=== PATIENT | male | born 1955 ===

== ENCOUNTER → 2016-12-22 | Outpatient (CLI) | payer OTHER ==
[2016-12-22 14:50] LABS: BASO % 0.4 %; BASO ABS # 0.02 K/uL (0-0.2); COMPLETE YES; EOS % 1.6 %; HEMATOCRIT 42.1 % (42-52); LYMPH % 31.3 %; MEAN CELL VOLUME 87.7 fL (80-100); MEAN CORPUSCULAR HEMOGLOBIN 29.2 pg (25-34); MEAN CORPUSCULAR HGB CONC 33.3 g/dl (32-36); MEAN PLATELET VOLUME 10.4 fL (7.4-10.4); MONO % 15.8 %; NEUT % 50.9 %; PLATELET COUNT 246 K/uL (130-400); WHITE BLOOD COUNT 4.48 K/uL (4.8-10.8)
[2016-12-22 15:08] LABS: ALT/SGPT 23 U/L (12-78); AST/SGOT 12 U/L (15-37); BLOOD UREA NITROGEN 13 mg/dl (7-18); CALCIUM 8.5 mg/dl (8.5-10.1); CARBON DIOXIDE 27 mmol/L (21-32); CHLORIDE 110 mmol/L (98-107); CREATININE 0.93 mg/dl (0.60-1.40); GLUCOSE 89 mg/dl (70-99); SODIUM 142 mmol/L (136-145)
[2016-12-22 15:14] LABS: ALKALINE PHOSPHATASE 65 U/L (45-117); CHOLESTEROL 114 mg/dl (0-200); CHOLESTEROL/HDL RATIO 3.9; HDL CHOLESTEROL 29 mg/dl; LDL CHOLESTEROL CALCULATED 67 mg/dl; PROSTATE SPECIFIC ANTIGEN 0.596 ng/ml (0.000-4.000); TRIGLYCERIDES 88 mg/dl (0-150); VERY LOW DENSITY LIPOPROT CALC 18 mg/dl
== END | disposition home or self-care (01) ==
LOC: C.LABSPEC 14:11
PROVIDERS: ATTEND Family Medicine
DX: Z00.00 Encounter for general adult medical examination without abnormal findings (principal); R19.7 Diarrhea, unspecified; F41.1 Generalized anxiety disorder; I10 Essential (primary) hypertension; Z12.5 Encounter for screening for malignant neoplasm of prostate; K21.9 Gastro-esophageal reflux disease without esophagitis

== ENCOUNTER → 2017-12-21 | Outpatient (CLI) | payer OTHER ==
[2017-12-21 13:39] LABS: BASO % 0.2 %; BASO ABS # 0.01 K/uL (0-0.2); EOS % 1.7 %; HEMATOCRIT 43.2 % (42-52); HEMOGLOBIN 14.8 g/dL (14.0-18.0); IG# 0.02 K/uL (0.00-0.02); MEAN CELL VOLUME 88.9 fL (80-100); MEAN CORPUSCULAR HEMOGLOBIN 30.5 pg (25-34); MEAN CORPUSCULAR HGB CONC 34.3 g/dl (32-36); MEAN PLATELET VOLUME 10.5 fL (7.4-10.4); MONO % 7.8 %; MONO ABS # 0.46 K/uL (0.11-0.59); NEUT ABS # 3.29 K/uL (1.4-6.5); PLATELET COUNT 244 K/uL (130-400); RED CELL DISTRIBUTION WIDTH CV 14.7 % (11.5-14.5); RED CELL DISTRIBUTION WIDTH SD 47.8 fL (36.4-46.3); WHITE BLOOD COUNT 5.88 K/uL (4.8-10.8)
[2017-12-21 13:58] LABS: ALKALINE PHOSPHATASE 67 U/L (45-117); ALT/SGPT 27 U/L (12-78); AST/SGOT 18 U/L (15-37); BLOOD UREA NITROGEN 17 mg/dl (7-18); CALCIUM 8.7 mg/dl (8.5-10.1); CARBON DIOXIDE 26 mmol/L (21-32); CHOLESTEROL 142 mg/dl (0-200); CREATININE 0.84 mg/dl (0.60-1.40); GLUCOSE 100 mg/dl (70-99); LDL CHOLESTEROL CALCULATED 92 mg/dl; POTASSIUM 4.3 mmol/L (3.5-5.1); SODIUM 140 mmol/L (136-145); TOTAL PROTEIN 6.9 gm/dl (6.4-8.2)
== END | disposition home or self-care (01) ==
LOC: C.LABSPEC 13:15
PROVIDERS: ATTEND Family Medicine
DX: Z00.00 Encounter for general adult medical examination without abnormal findings (principal); I10 Essential (primary) hypertension; K21.9 Gastro-esophageal reflux disease without esophagitis; R35.0 Frequency of micturition

== ENCOUNTER 2021-05-19 21:58 | Inpatient (IN) ==
[2021-05-19] MEDS ORDERED: dexAMETHasone**PF** 10 MG/ML VIAL IV ONE (22:13)
--- NOTE | 2021-05-19 22:20 | Emergency Department Note ---
History of Present Illness General Chief complaint: Shortness of Breath/Dyspnea Stated complaint: sob, pneumonia, covid-, Time Seen by Provider: 05/19/21 22:10 Source: patient History of Present Illness Provider complaint: Short breath Onset (ago): day(s) Location: chest Pain Consistency: + constant Quality: + other (Short of breath) Relieved By: + none Associated symptoms: + cough, + malaise and + shortness of breath; no chest p ain, no fever/chills or no nausea/vomiting This is a 66-year-old male with history of hypertension presenting with shortness of breath for the past several days. He had flu symptoms starting 6 days ago including cough and malaise. He has some loss of taste. He denies any fever, chest pain, abdominal pain, vomiting, diarrhea or urinary symptoms. He states that he started getting short of breath several days ago. He feels like he cannot breathe. He is not on oxygen at home. He did have a COVID test yesterday which was positive. He is not vaccinated for COVID-19. He does not smoke. His shortness of breath is only slightly better with the oxygen currently. Home Medications Medication Instructions Recorded Confirmed Type azithromycin 250 mg tablet 250 mg PO UD 05/19/21 05/19/21 History losartan 50 mg tablet 50 mg PO DAILY 05/19/21 05/19/21 History prednisone 10 mg tablet 10 mg PO UD 05/19/21 05/19/21 History Allergies Allergy/AdvReac Type Severity Reaction Status Date / Time No Known Allergies Allergy Unverified 05/19/21 22:56 Past Med/Surg History Medical History Hypertension Social History Smoking Status: Never smoker Feels Safe at Home: Yes Review of Systems See HPI for pertinent positives & negatives. and A total of 10 systems reviewed and were otherwise negative Physical Exam Vital Signs Vital Signs - 24 hr 05/19/21 22:00 05/19/21 22:33 05/19/21 22:38 Temperature 37.7 C H Temperature Source Temporal Artery Scan Pulse Rate 80 79 Respiratory Rate 20 30 H Respiratory Effort / Characteristics Short of Breath SOB on Exertion Respiratory Depth Deep Blood Pressure 148/87 H 163/88 H Blood Pressure Mean 107 113 Blood Pressure Position Sitting Pulse Oximetry 87 L 94 Oxygen Delivery Method Room Air Nasal Cannula Nasal Cannula Oxygen Flow Rate 0 4 Sepsis Recent Fever Within 48 Hours No Sepsis New/Unexplained Change in Mental Status No Sepsis Action Taken by Nursing No Action Required Oxygen Flow Rate - Titration 4 Pulse Oximetry Post Tiitration 95 05/19/21 23:00 05/19/21 23:30 05/19/21 23:34 Temperature Temperature Source Pulse Rate 76 81 Respiratory Rate 30 H 28 H Respiratory Effort / Characteristics Respiratory Depth Blood Pressure 144/84 H 143/82 H Blood Pressure Mean 104 102 Blood Pressure Position Pulse Oximetry 95 95 95 Oxygen Delivery Method Nasal Cannula Nasal Cannula Nasal Cannula Oxygen Flow Rate 4 4 4 Sepsis Recent Fever Within 48 Hours Sepsis New/Unexplained Change in Mental Status Sepsis Action Taken by Nursing Oxygen Flow Rate - Titration Pulse Oximetry Post Tiitration Constitutional: Vital signs reviewed. Hypoxemic. Eyes: Pupils are equal round reactive to light. Conjunctiva are noninjected. ENT: Pharynx is clear without erythema or exudate. Mucous membranes are moist. Neck supple without meningeal signs. Respiratory: Clear to auscultation bilaterally. Breath sounds are equal bilaterally. Cardiovascular: Regular rate and rhythm. No rubs or gallops. GI: Soft, nondistended and nontender. Bowel sounds are present. Musculoskeletal: No peripheral edema. No lower extremity tenderness. Integumentary: No cyanosis. or jaundice. Neurological: The patient is awake and alert. No focal deficits. Psychiatric: Normal affect. Course Administered Medications Discontinued Medications Dexamethasone Sodium Phosphate (DexamethasonePf 10 Mg/Ml Vial) 6 mg IV NOW ONE Stop: 05/19/21 22:14 Last Admin: 05/19/21 22:32 Dose: 6 mg Documented by: [id number] Medical Decision Making Differential Diagnosis COVID-19, multifocal pneumonia, hypoxemia, respiratory failure, anemia Medical Records Attestation: I reviewed the patient's medical records. I did perform a limited focused review of portions of the patient's old chart on the electronic medical record. The patient has had no recent pertinent visits to this hospital. Home Medications Current Medication List: was personally reviewed by me Laboratory Data Attestation: I reviewed the patient's lab results. Result diagrams: 05/19/21 22:30 05/19/21 22:30 Lab Results 01/11/0205/19/21 05/19/21 Range/Units 22:30 22:30 23:50 WBC 5.04 (4.8-10.8) K/uL RBC 4.96 (4.7-6.1) M/uL Hgb 15.0 (14.0-18.0) g/dL Hct 44.0 (42-52) % MCV 88.7 (80-100) fL MCH 30.2 (25-34) pg MCHC 34.1 (32-36) g/dL RDW Std Deviation 46.5 H (36.4-46.3) fL RDW Coeff of Danielle 14.2 (11.5-14.5) % Plt Count 248 (130-400) K/uL MPV 9.9 (7.4-10.4) fL Immature Gran % (Auto) 0.2 % Neut % (Auto) 79.0 % Lymph % (Auto) 12.5 % [place] % (Auto) 8.3 % Eos % (Auto) 0.0 % Baso % (Auto) 0.0 % Neut # (Auto) 3.98 (1.4-6.5) K/uL Lymph # (Auto) 0.63 L (1.2-3.4) K/uL [place] # (Auto) 0.42 (0.11-0.59) K/uL Eos # (Auto) 0.00 (0-0.5) K/uL Baso # (Auto) 0.00 (0-0.2) K/uL Immature Gran # (Auto) 0.01 (0.00-0.02) K/uL Sodium 134 L (136-145) mmol/L Potassium (3.5-5.1) mmol/L Chloride 101 (98-107) mmol/L Carbon Dioxide 26 (21-32) mmol/L Anion Gap 7.0 (3-11) BUN 17 (7-18) mg/dl Creatinine 0.88 (0.6-1.4) mg/dl Est Cr Clr Drug Dosing 92.2 ml/min Est GFR ( Amer) 103.7 ml/min Est GFR (Non-Af Amer) 89.5 ml/min BUN/Creatinine Ratio 19.6 (10-20) Glucose 110 H (70-99) mg/dl Calcium 9.2 (8.5-10.1) mg/dl Total Bilirubin 0.5 (0.2-1) mg/dl AST (15-37) U/L ALT 61 (12-78) Alkaline Phosphatase 65 (45-117) U/L Troponin I < 0.015 (0-0.045) ng/ml Total Protein 7.8 (6.4-8.2) gm/dl Albumin 3.2 L (3.4-5.0) gm/dl Globulin 4.6 H (2.5-4.0) gm/dl Albumin/Globulin Ratio 0.7 L (0.9-2) Urine Color Yellow Urine Appearance Clear (Clear) Urine pH 5.0 (4.5-7.5) Ur Specific [place] 1.023 (1.000-1.030) Urine Protein 1+ H (Negative) Urine Glucose (UA) Negative (Negative) Urine Ketones 1+ H (Negative) Urine Blood Negative (Negative) Urine Nitrite Negative (Negative) Urine Bilirubin Negative (Negative) Urine Urobilinogen Negative (Negative) Ur Leukocyte Esterase Negative (Negative) Urine WBC (Auto) 1-5 (0-5) /hpf Urine RBC (Auto) 0-4 (0-4) /hpf U Hyaline Cast (Auto) 5-10 H (0-5) /lpf U Epithel Cells (Auto) 10-20 H (0-5) /lpf Urine Bacteria (Auto) Negative (Negative) Imaging Data Attestation: I personally reviewed and interpreted this imaging study as follows: My Impression: Chest x-ray per my interpretation shows bilateral infiltrates consistent with a viral pneumonia. ECG Data Attestation: I personally reviewed and interpreted this ECG as follows: Indication: + SOB/dyspnea Rate (beats per minute): 78 Rhythm: + normal sinus ECG [place]: + Normal ECG ST segments: + T-wave inversions ECG Findings: no PVCs Comparison ECG Date: no prior available MDM Narrative I did evaluate the patient as noted above. Patient is presenting with a positive COVID test and COVID symptoms. He is short of breath and hypoxemic here. He was placed on supplemental oxygen. His O2 saturation was 96% on 4 L. He was placed in respiratory isolation. IV access was established. I did treat him with Decadron [address] I did [address] an order for continuous cardiac monitoring. The monitor showed normal sinus rhythm at a rate of 80 bpm. I did order and personally review the patient's 12-lead EKG as described above. He has T wave inversions in the anterior lateral leads. No old EKGs available for comparison. He denies having any chest discomfort or pain but he does have shortness of breath. I did order and personally reviewed the images of the patient's chest x-ray as described above. He has a multifocal pneumonia. I did order and review the patient's blood work as noted in the electronic medical record. CBC is unremarkable without leukocytosis or anemia. He does have a mild decrease in lymphocytes with his differential likely from COVID. Sodium is slightly low at 134 but otherwise electrolytes and LFTs are unremarkable. Troponin is negative. I did discuss the case with the hospitalist and egg caser. Impression & Plan Hypoxemia, Pneumonia due to 2019 novel coronavirus, Hyponatremia Discharge Plan Visit Data Chief Complaint: Shortness of Breath/Dyspnea Stated Complaint: sob, pneumonia, covid-, ED Provider: Gage Loya Discharge Problem: Hypoxemia, Pneumonia due to 2019 novel coronavirus, Hyponatremia Patient Disposition: Being Evaluated by Hospitalist Forms Stand Alone Forms: My [facility] Prescriptions Prescriptions: No Action losartan 50 mg tablet 50 mg PO DAILY RF: 0 prednisone 10 mg tablet 10 mg PO UD RF: 0 azithromycin 250 mg tablet 250 mg PO UD RF: 0 Referrals Referrals: Alex Mendoza DO [Primary Care Provider] -
[2021-05-19 22:41] LABS: Immature Granulocytes # (auto) 0.01 K/uL (0.00-0.02); Immature Granulocytes % (auto) 0.2 %; Lymphocytes # (auto) 0.63 K/uL (1.2-3.4); Lymphocytes % (auto) 12.5 %; Mean Corpuscular Hemoglobin 30.2 pg (25-34); Mean Corpuscular Hgb Conc 34.1 g/dL (32-36); Mean Corpuscular Volume 88.7 fL (80-100); Mean Platelet Volume 9.9 fL (7.4-10.4); Monocytes # (auto) 0.42 K/uL (0.11-0.59); Monocytes % (auto) 8.3 %; Neutrophils # (auto) 3.98 K/uL (1.4-6.5); Platelet Count 248 K/uL (130-400); RDW Coefficient of Variation 14.2 % (11.5-14.5); RDW Standard Deviation 46.5 fL (36.4-46.3); Red Blood Count 4.96 M/uL (4.7-6.1); White Blood Count 5.04 K/uL (4.8-10.8)
[2021-05-19 23:08] LABS: Alanine Aminotransferase 61 (12-78); Albumin Level 3.2 gm/dl (3.4-5.0); BUN Creatinine Ratio 19.6 (10-20); Blood Urea Nitrogen 17 mg/dl (7-18); Calcium 9.2 mg/dl (8.5-10.1); Carbon Dioxide 26 mmol/L (21-32); Chloride 101 mmol/L (98-107); Creatinine Clr Calc Pharmacy 92.2 ml/min; Est GFR (African American) 103.7 ml/min; Est GFR (Non-African American) 89.5 ml/min; Glucose 110 mg/dl (70-99); Sodium 134 mmol/L (136-145)
[2021-05-19 23:17] LABS: Albumin Globulin Ratio 0.7 (0.9-2); Alkaline Phosphatase 65 U/L (45-117); Bilirubin,Total 0.5 mg/dl (0.2-1); Globulin 4.6 gm/dl (2.5-4.0); Total Protein 7.8 gm/dl (6.4-8.2); Troponin I < 0.015 ng/ml (0-0.045)
[2021-05-20 00:12] LABS: Appearance Urine Clear (Clear); Bacteria Urine Automated Negative (Negative); Bilirubin Urine Negative (Negative); Blood Urine Negative (Negative); Color Urine Yellow; Glucose Urine UA Negative (Negative); Ketones Urine 1+ (Negative); Leukocyte Esterase Urine Negative (Negative); Nitrite Urine Negative (Negative); Protein Urine 1+ (Negative); RBC Urine Automated 0-4 /hpf (0-4); Specific Gravity Urine 1.023 (1.000-1.030); Urobilinogen Urine Negative (Negative)
[2021-05-20] MEDS ORDERED: REMDESIVIR 200 MG in SODIUM CHLORIDE 0.9% 210 ML IV STA (01:16)
[2021-05-20] MEDS ORDERED: ONDANSETRON INJ 2 MG/ML 2 ML VIAL IV PRN (02:28)
[2021-05-20] MEDS ORDERED: SODIUM CHLORIDE 0.9% 1000ML 1,000 ML IV SCH (02:28)
[2021-05-20] MEDS ORDERED: NITROGLYCERIN SL 0.4 MG/TAB TAB SL PRN (02:28)
[2021-05-20] MEDS ORDERED: ALBUTEROL HFA 8 GM INHALER INH PRN (02:28)
--- NOTE | 2021-05-20 02:53 | History and Physical Report ---
DATE OF ADMISSION: 05/20/2021. CHIEF COMPLAINT: Shortness of breath. HISTORY OF PRESENT ILLNESS: A 66-year-old male with past medical history significant for hypertension, started developing cough since last Sunday and since sunday , he was feeling short of breath, has body aches, poor appetite, not eating much, not feeling well, so he came to the ER and was saturating only 87% on room air and COVID came back positive. He is not vaccinated. With oxygenation, he is doing okay. Denies any headache, no earache. Has some runny nose. His throat is sore. No nausea, no vomiting. Has some diarrhea. No abdominal pain. Normal bladder movements. No swelling in the legs. Currently, resting comfortably and hemodynamically stable. Somewhat hard of hearing. ALLERGIES: No known drug allergies. PAST MEDICAL HISTORY: As mentioned above. PAST SURGICAL HISTORY: EGD, abdominal hernia repair. MEDICATIONS: The patient is on losartan 50 mg p.o. daily. FAMILY HISTORY: No family history on file. SOCIAL HISTORY: , no smoking. Alcohol occasional. No drug use. REVIEW OF SYSTEMS: As per HPI. Rest of the review of systems is negative. PHYSICAL EXAMINATION: GENERAL: The patient is of moderate build, not in acute distress. VITAL SIGNS: Temperature 37.7, pulse 81, respiratory rate 28, blood pressure 143/82, oxygen 95% on 4 liters. HEENT: Pupils equal, round and reactive to light. Oral mucosa moist. NECK: No JVD or neck masses. CARDIOVASCULAR: S1 and S2 heard. Regular rate and rhythm. No murmur, no gallop. RESPIRATORY SYSTEM: Normal AP diameter. No accessory muscle use. No wheezing, no crackles. ABDOMEN: Soft, bowel sounds present, nontender, no distention. CENTRAL NERVOUS SYSTEM: Cranial nerves II-XII grossly intact, nonfocal. EXTREMITIES: No edema, no erythema. LABORATORY DATA: WBC 5.04, hemoglobin 15, hematocrit 44, platelets 248. Sodium 134, potassium 4.1, chloride 101, bicarbonate 26, BUN 17, creatinine 0.8, serum glucose 110, calcium 9.2, total bilirubin 0.5, ALT 61, alkaline phosphatase 65, troponin I less than 0.015. Urinalysis, +1 ketones. IMAGING DATA: Chest x-ray, multifocal pneumonia. EKG: Normal sinus rhythm at a rate of 78, nonspecific ST abnormalities. ASSESSMENT AND PLAN: This is a 66-year-old male who presents with COVID pneumonia. 1. COVID pneumonia, hypoxia: Requiring oxygen. Not vaccinated. Started on remdesivir and IV Decadron. Follow the remdesivir labs. Placed on inhalers. Ordered 1 liter of fluids and closely monitor in the med tele. 2. History of hypertension: Continue losartan. 3. Deep venous thrombosis prophylaxis: Lovenox. DISPOSITION: Closely monitor in the med tele. PT/OT prior to discharge. Social service to help with discharge planning. Job ID: [id number] [facility]
[2021-05-20] MEDS ORDERED: SODIUM CHLORIDE 0.9% 10ML FLUSH IV SCH (04:00)
--- NOTE | 2021-05-20 07:28 | XRay Report ---
SINGLE VIEW CHEST CLINICAL HISTORY: Dyspnea. Covid. FINDINGS: An AP, portable, upright chest radiograph is obtained. No prior studies are available for c omparison at the time of dictation. The cardiomediastinal silhouette is unremarkable. Multifocal air space consolidation is present bilaterally, greatest at the lung bases. No large pleural effusion or pneumothorax is seen. The bony thorax is grossly intact. IMPRESSION: Multifocal airspace consolidation is consistent with the reported history of a viral pneu monia. Radiographic follow-up to resolution is recommended. ACT 112: Negative or not required by law. Electronically signed by: Reece Knight M.D. 05/20/2021 7:26 AM
[2021-05-20 07:47] LABS: Hematocrit (blood only) 41.4 % (42-52); Mean Corpuscular Hgb Conc 33.8 g/dL (32-36); Mean Corpuscular Volume 88.7 fL (80-100); Neutrophils % (auto) 78.2 %; Platelet Count 258 K/uL (130-400); RDW Coefficient of Variation 14.4 % (11.5-14.5); Red Blood Count 4.67 M/uL (4.7-6.1); White Blood Count 3.95 K/uL (4.8-10.8)
[2021-05-20 07:48] LABS: Immature Granulocytes # (auto) 0.01 K/uL (0.00-0.02); Immature Granulocytes % (auto) 0.3 %; Lymphocytes # (auto) 0.51 K/uL (1.2-3.4); Lymphocytes % (auto) 12.9 %; Monocytes # (auto) 0.34 K/uL (0.11-0.59); Monocytes % (auto) 8.6 %; Neutrophils # (auto) 3.09 K/uL (1.4-6.5)
[2021-05-20] MEDS: ENOXAPARIN INJ 40 MG/0.4 ML SYR SQ SCH (08:00)
[2021-05-20] MEDS: FLUTICASONE FUROATE 100MCG 14 PUFFS/INHALER INH SCH (08:01)
[2021-05-20] MEDS: LOSARTAN POTASSIUM 50 MG TAB PO SCH (08:01)
[2021-05-20] MEDS: dexAMETHasone 6 MG in SYRINGE 0 ML IV SCH (08:01)
[2021-05-20 08:18] LABS: Alanine Aminotransferase 50 (12-78); Albumin Level 2.6 gm/dl (3.4-5.0); Aspartate Aminotransferase 22 U/L (15-37); BUN Creatinine Ratio 19.3 (10-20); Bilirubin Direct < 0.1 mg/dl (0-0.2); Blood Urea Nitrogen 17 mg/dl (7-18); C Reactive Protein 8.64 mg/dl (0-0.29); Calcium 8.3 mg/dl (8.5-10.1); Carbon Dioxide 25 mmol/L (21-32); Chloride 106 mmol/L (98-107); Creatinine Clr Calc Pharmacy 91.3 ml/min; Est GFR (African American) 103.7 ml/min; Est GFR (Non-African American) 89.5 ml/min; Glucose 142 mg/dl (70-99); Magnesium 2.1 mg/dl (1.8-2.4); Potassium 4.1 mmol/L (3.5-5.1); Sodium 139 mmol/L (136-145)
[2021-05-20 08:21] LABS: Alkaline Phosphatase 62 U/L (45-117)
[2021-05-20 09:28] LABS: Bilirubin,Total 0.4 mg/dl (0.2-1)
--- NOTE | 2021-05-20 16:13 | Electrocardiogram Report ---
Test Reason : Blood Pressure : / mmHG Vent. Rate : 078 BPM Atrial Rate : 078 BPM P-R Int : 142 ms QRS Dur : 084 ms QT Int : 376 ms P-R-T Axes : 033 004 126 degrees QTc Int : 428 ms Normal sinus rhythm Possible Left atrial enlargement Abnormal ECG No previous ECGs available Confirmed by Danny Banuelos ([id number]) on 05/20/2021 4:13:53 PM Referred By: REFERRED SELF Confirmed By:Danny Banuelos
--- NOTE | 2021-05-20 16:57 | Hospitalist Progress Note ---
Date of Service May 20, 2021 Assessment & Plan (1) Acute respiratory failure due to COVID-19: Plan: Cont steroids and remdesivir therapy. No conversational dyspnea or tachypea. Doing well on min oxygen supplementation. Afebrile. Cont current therapy and wean oxygen as tolerated. Trend CRP, BNP. Consider lasix to keep overall net negative. If CRP >7.5 and on hi flow oxygen, may consider baricitinib therapy with steroids, however, currently does not meet criteria. (2) Pneumonia due to 2019 novel coronavirus: Plan: polan as above. (3) Hypertension: Plan: At goal, cont current therapy (4) DVT prophylaxis: Plan: Lovenox Full Dispo-cont [facility]U [facility] Hospitalist Admission and Anticipated Discharge Date Admission Date: May 20, 2021 Subjective 66-year-old man with symptoms for the last few days admitted for COVID- pneumonia. Feeling well overall and improved Afebrile tolerating PO cough and SOB improved requiring oxygen no GI issues Review of Systems Review of Systems: All systems were reviewed and negative except as indicated above. Physical Exam Physical Exam: CONSTITUTIONAL: WNWD, vitals as above, generally well- appearing EYES: normal conjunctivae, no scleral icterus ENT: external ear and nose normal, MMM NECK: trachea midline, RESPIRATORY: clear to auscultation bilaterally, no crackles, rales or wheezes, normal respiratory effort CARDIOVASCULAR: regular rate and rhythm, S1 and 2 heard without murmurs, gallops or rubs, no JVD, no peripheral edema CHEST: inspection of chest was normal GASTROINTESTINAL: soft, nontender, ND, no guarding MUSCULOSKELETAL: strength 5/5 throughout, head is normocephalic and atraumatic, SKIN: warm and dry, NEUROLOGIC: CN 2-12 grossly intact, no sensory deficit, normal cognition, normal speech, no tremor PSYCHIATRIC: alert cooperative and oriented to person, place and time. Euthymic mood, makes good eye contact, language grossly intact, recent and remote memory grossly intact. Results & Data Results & Data ([facility]) Vital Signs (Past 12 Hours) Vital Signs Temp Pulse Pulse Resp BP BP Pulse Ox 05/20/21 15:21 73 05/20/21 15:11 36.6 C 64 19 142/81 H 92 05/20/21 11:10 36.7 C 64 20 142/81 H 91 05/20/21 07:12 36.6 C 64 20 154/89 H 90 Laboratory Results Short CBC 05/19/21 05/20/21 Range/Units 22:30 07:25 WBC 5.04 3.95 L (4.8-10.8) K/uL Hgb 15.0 14.0 (14.0-18.0) g/dL Hct 44.0 41.4 L (42-52) % Plt Count 248 258 (130-400) K/uL BMP 05/19/21 05/20/21 22:30 07:25 Sodium 134 L 139 Potassium 4.1 Chloride 101 106 Carbon Dioxide 26 25 BUN 17 17 Creatinine 0.88 0.88 Glucose 110 H 142 H Calcium 9.2 8.3 L Cardiac Enzymes 05/19/21 Range/Units 22:30 Troponin I < 0.015 (0-0.045) ng/ml Liver Function 05/19/21 05/20/21 Range/Units 22:30 07:25 Total Bilirubin 0.5 0.4 (0.2-1) mg/dl Direct Bilirubin < 0.1 (0-0.2) mg/dl AST 22 (15-37) U/L ALT 61 50 (12-78) Alkaline Phosphatase 65 62 (45-117) U/L Albumin 3.2 L 2.6 L (3.4-5.0) gm/dl Urine 05/19/21 Range/Units 23:50 Urine Color Yellow Urine Appearance Clear (Clear) Urine pH 5.0 (4.5-7.5) Ur Specific [place] 1.023 (1.000-1.030) Urine Protein 1+ H (Negative) Urine Glucose (UA) Negative (Negative) Diagnostic Findings Chest X-Ray 05/19/21 22:13 SINGLE VIEW CHEST CLINICAL HISTORY: Dyspnea. Covid. FINDINGS: An AP, portable, upright chest radiograph is obtained. No prior studies are available for comparison at the time of dictation. The cardiomediastinal silhouette is unremarkable. Multifocal airspace consolidation is present bilaterally, greatest at the lung bases. No large pleural effusion or pneumothorax is seen. The bony thorax is grossly intact. IMPRESSION: Multifocal airspace consolidation is consistent with the reported history of a viral pneumonia. Radiographic follow-up to resolution is recommended. ACT 112: Negative or not required by law. Electronically signed by: Reece Knight M.D. 05/20/2021 7:26 AM Medications Administered Current Inpatient Medications Acetaminophen (Acetaminophen 325 Mg Tab) 650 mg PO Q4H PRN PRN Reason: Pain or Fever Stop: 06/19/21 02:27 Albuterol (Albuterol Hfa 8 Gm Inhaler) 2 puffs INH Q4H PRN PRN Reason: Shortness Of Breath Or Wheezin Stop: 06/19/21 02:27 Enoxaparin Sodium (Enoxaparin Inj 40 Mg/0.4 Ml Syr) 40 mg SQ Q24H PRINCE Stop: 06/19/21 08:59 Last Admin: 05/20/21 08:00 Dose: 40 mg Documented by: Fluticasone Furoate (Fluticasone Furoate 100mcg 14 Puffs/Inhaler) 1 puffs INH DAILY PRINCE Stop: 06/19/21 08:59 Last Admin: 05/20/21 08:01 Dose: 1 puffs Documented by: Remdesivir 100 mg/ Sodium (Chloride) 250 mls @ 250 mls/hr IV Q[facility]H [facility]; Protocol Stop: 05/23/21 20:59 Dexamethasone 6 mg/ Syringe 1.5 mls @ 1 mls/min IV DAILY [facility] Stop: 05/30/21 08:59 Last Admin: 05/20/21 08:01 Dose: 1 mls/min Documented by: Losartan Potassium (Losartan Potassium 50 Mg Tab) 50 mg PO DAILY PRINCE Stop: 06/19/21 08:59 Last Admin: 05/20/21 08:01 Dose: 50 mg Documented by: Nitroglycerin (Nitroglycerin Sl 0.4 Mg/Tab Tab) 0.4 mg SL UD PRN PRN Reason: Chest Pain Stop: 06/19/21 02:27 Ondansetron HCl (Ondansetron Inj 2 Mg/Ml 2 Ml Vial) 4 mg IV Q6H PRN PRN Reason: Nausea Stop: 06/19/21 02:27 Sodium Chloride (Sodium Chloride 0.9% 10ml Flush) 30 ml IV Q24H PRINCE Stop: 05/23/21 21:01
[2021-05-20] MEDS: REMDESIVIR 100 MG in SODIUM CHLORIDE 0.9% 230 ML IV SCH (21:06)
[2021-05-20] MEDS: SODIUM CHLORIDE 0.9% 10ML FLUSH IV SCH (21:07)
[2021-05-20] MEDS: ACETAMINOPHEN 325 MG TAB PO PRN (22:36)
[2021-05-21 06:34] LABS: BUN Creatinine Ratio 29.4 (10-20); Creatinine Clr Calc Pharmacy 89.2 ml/min; Est GFR (African American) 102.8 ml/min; Est GFR (Non-African American) 88.7 ml/min; Magnesium 2.2 mg/dl (1.8-2.4); Potassium 4.1 mmol/L (3.5-5.1)
[2021-05-21 06:35] LABS: Phosphorus 3.6 mg/dl (2.5-4.9)
[2021-05-21] MEDS: dexAMETHasone 6 MG in SYRINGE 0 ML IV SCH (08:05)
[2021-05-21] MEDS: ENOXAPARIN INJ 40 MG/0.4 ML SYR SQ SCH (08:06)
[2021-05-21] MEDS: LOSARTAN POTASSIUM 50 MG TAB PO SCH (08:06)
[2021-05-21] MEDS: guaiFENesin 600 MG TABCR PO SCH ×2 (08:06→20:09)
[2021-05-21] MEDS: FLUTICASONE FUROATE 100MCG 14 PUFFS/INHALER INH SCH (08:06)
--- NOTE | 2021-05-21 08:48 | Hospitalist Progress Note ---
Date of Service May 21, 2021 Assessment & Plan (1) Acute respiratory failure due to COVID-19: Plan: Yesterday evening, patient was on 3.5 liters of O2, currently on 12 L after walk to the bathroom Appears tired Cont steroids and remdesivir therapy. No conversational dyspnea or tachypnea. Afebrile. Cont current therapy and wean oxygen as tolerated. Trend CRP, BNP. Consider lasix to keep overall net negative. If CRP >7.5 and on hi flow oxygen, may consider baricitinib therapy with steroids, however, currently does not meet criteria. CRP down to 5.8 (2) Pneumonia due to 2019 novel coronavirus: Plan: plan as above (3) Hypertension: Plan: At goal, cont current therapy (4) DVT prophylaxis: Plan: Lovenox Full Dispo-cont PCU monitoring Admission and Anticipated Discharge Date Admission Date: May 20, 2021 Subjective Patient seen in follow-up of COVID 19 pneumonia, hypoxia, patient unvaccinated Yesterday he was on a 3-1/2 L in the evening, however this morning, when walked to the bathroom, patient became quite short of breath, and currently on 12 L He is laying in bed, appears exhausted Denies any chest pain, fevers chills Says he has poor appetite Denies abdominal pain nausea vomiting Says he has some dry cough Review of Systems Review of Systems: All systems reviewed & are unremarkable except as noted in Subjective Physical Exam Physical Exam: CONSTITUTIONAL: WNWD, M in NAD on 12L, appears tired EYES: normal conjunctivae, no scleral icterus ENT: external ear and nose normal, MMM NECK:supple RESPIRATORY: clear to auscultation bilaterally, no crackles, rales or wheezes, normal respiratory effort CARDIOVASCULAR: regular rate and rhythm, S1 and 2 heard without murmurs, gallops or rubs, no JVD, no peripheral edema CHEST: inspection of chest was normal GASTROINTESTINAL: soft, nontender, ND, no guarding MUSCULOSKELETAL: strength 5/5 throughout, head is normocephalic and atraumatic, SKIN: warm and dry NEUROLOGIC:Awake and alert, answers questions appropriately, speech fluent, no facial symmetry, moves extremities PSYCHIATRIC: alert cooperative and oriented to person, place and time. Euthymic mood Results & Data Results & Data ([facility]) Vital Signs (Past 12 Hours) Vital Signs Temp Pulse Pulse Resp BP Pulse Ox 05/21/21 07:54 36.4 C L 73 20 132/76 96 05/21/21 02:53 36.9 C 79 20 130/77 90 05/20/21 22:29 36.7 C 66 20 148/95 H 90 05/20/21 22:18 65 Laboratory Results 05/21/21 05/20/21 Range/Units 05:15 07:25 Sodium 140 (136-145) mmol/L Potassium 4.1 (3.5-5.1) mmol/L Chloride 109 H (98-107) mmol/L Carbon Dioxide 24 (21-32) mmol/L Anion Gap 7.0 (3-11) BUN 26 H D (7-18) mg/dl Creatinine 0.90 (0.6-1.4) mg/dl Est Cr Clr Drug Dosing 89.2 ml/min Est GFR ( Amer) 102.8 ml/min Est GFR (Non-Af Amer) 88.7 ml/min BUN/Creatinine Ratio 29.4 H (10-20) Glucose 114 H (70-99) mg/dl Calcium 9.0 (8.5-10.1) mg/dl Phosphorus 3.6 (2.5-4.9) mg/dl Magnesium 2.2 (1.8-2.4) mg/dl Total Bilirubin 0.4 (0.2-1) mg/dl AST 24 (15-37) U/L ALT 44 (12-78) Medications Administered Current Inpatient Medications Acetaminophen (Acetaminophen 325 Mg Tab) 650 mg PO Q4H PRN PRN Reason: Pain or Fever Stop: 06/19/21 02:27 Last Admin: 05/20/21 22:36 Dose: 650 mg Documented by: Albuterol (Albuterol Hfa 8 Gm Inhaler) 2 puffs INH Q4H PRN PRN Reason: Shortness Of Breath Or Wheezin Stop: 06/19/21 02:27 Last Admin: 05/21/21 05:17 Dose: 2 puffs Documented by: Enoxaparin Sodium (Enoxaparin Inj 40 Mg/0.4 Ml Syr) 40 mg SQ Q24H PRINCE Stop: 06/19/21 08:59 Last Admin: 05/21/21 08:06 Dose: 40 mg Documented by: Fluticasone Furoate (Fluticasone Furoate 100mcg 14 Puffs/Inhaler) 1 puffs INH DAILY [facility] Stop: 06/19/21 08:59 Last Admin: 05/21/21 08:06 Dose: 1 puffs Documented by: Guaifenesin (Guaifenesin 600 Mg Tabcr) 600 mg PO Q12 [facility] Stop: 06/20/21 08:59 Last Admin: 05/21/21 08:06 Dose: 600 mg Documented by: Remdesivir 100 mg/ Sodium (Chloride) 250 mls @ 250 mls/hr IV Q24H [facility]; Protocol Stop: 05/23/21 20:59 Last Infusion: 05/20/21 23:06 Dose: Infused Documented by: Dexamethasone 6 mg/ Syringe 1.5 mls @ 1 mls/min IV DAILY [facility] Stop: 05/30/21 08:59 Last Admin: 05/21/21 08:05 Dose: 1 mls/min Documented by: Losartan Potassium (Losartan Potassium 50 Mg Tab) 50 mg PO DAILY [facility] Stop: 06/19/21 08:59 Last Admin: 05/21/21 08:06 Dose: 50 mg Documented by: Nitroglycerin (Nitroglycerin Sl 0.4 Mg/Tab Tab) 0.4 mg SL UD PRN PRN Reason: Chest Pain Stop: 06/19/21 02:27 Ondansetron HCl (Ondansetron Inj 2 Mg/Ml 2 Ml Vial) 4 mg IV Q6H PRN PRN Reason: Nausea Stop: 06/19/21 02:27 Sodium Chloride (Sodium Chloride 0.9% 10ml Flush) 30 ml IV Q24H [facility] Stop: 05/23/21 21:01 Last Admin: 05/20/21 21:07 Dose: 30 ml Documented by:
[2021-05-21] MEDS ORDERED: FUROSEMIDE INJ 20 MG/2 ML VIAL IV ONE (16:13)
[2021-05-21] MEDS: ADVANCED PROBIOTIC 1250 MG CAPSULE PO SCH (17:03)
--- NOTE | 2021-05-21 17:27 | XRay Report ---
XR chest 1V portable CLINICAL HISTORY: follow up hypoxia Covid pneumonia. TECHNIQUE: Single frontal radiograph of the chest was obtained. Comparison: Comparison is made to chest one view 05/19/2021 FINDINGS: No lines and tubes are seen. The cardiomediastinal silhouette is normal. Multifocal airspace opacitie s are seen. No evidence of pleural effusion or pneumothorax. IMPRESSION: Multifocal airspace opacities compatible with history of viral pneumonia. Overall these findings are more pronounced than the prior exam. ACT 112: Negative or not required by law. Electronically signed by: Anup Garcia M.D. 05/21/2021 5:25 PM
[2021-05-21] MEDS: REMDESIVIR 100 MG in SODIUM CHLORIDE 0.9% 230 ML IV SCH (20:10)
[2021-05-21] MEDS: ACETAMINOPHEN 325 MG TAB PO PRN (21:36)
[2021-05-21] MEDS: SODIUM CHLORIDE 0.9% 10ML FLUSH IV SCH (21:42)
--- NOTE | 2021-05-22 07:26 | Hospitalist Progress Note ---
Date of Service May 22, 2021 Assessment & Plan (1) Acute respiratory failure due to COVID-19: Plan: Yesterday evening, patient was on 3.5 liters of O2, currently on 12 L after walk to the bathroom Appears tired Cont steroids and remdesivir therapy. No conversational dyspnea or tachypnea. Afebrile. Cont current therapy and wean oxygen as tolerated. Trend CRP, BNP. Consider lasix to keep overall net negative. If CRP >7.5 and on hi flow oxygen, may consider baricitinib therapy with steroids, however, currently does not meet criteria. CRP down to 3.3 (2) Pneumonia due to 2019 novel coronavirus: Plan: plan as above (3) Hypertension: Plan: At goal, cont current therapy (4) DVT prophylaxis: Plan: Lovenox Full Dispo-cont PCU monitoring Admission and Anticipated Discharge Date Admission Date: May 20, 2021 Subjective Patient seen in follow-up of COVID 19 pneumonia, hypoxia, patient unvaccinated Currently he is sitting up in the chair, in acute distress, watching TV Says he is feeling better, however he still requires to be on high flow nasal cannula Denies any chest pain, fevers chills Denies abdominal pain nausea vomiting Says he has some dry cough Review of Systems Review of Systems: All systems reviewed & are unremarkable except as noted in Subjective Physical Exam Physical Exam: CONSTITUTIONAL: WNWD, M in NAD on HF NC (14L) EYES: normal conjunctivae, no scleral icterus ENT: external ear and nose normal, MMM NECK:supple RESPIRATORY: clear to auscultation bilaterally, no crackles, rales or wheezes, normal respiratory effort CARDIOVASCULAR: regular rate and rhythm, S1 and 2 heard without murmurs, gallops or rubs, no JVD, no peripheral edema CHEST: inspection of chest was normal GASTROINTESTINAL: soft, nontender, ND, no guarding MUSCULOSKELETAL: strength 5/5 throughout, head is normocephalic and atraumatic, SKIN: warm and dry NEUROLOGIC:Awake and alert, answers questions appropriately, speech fluent, no facial symmetry, moves extremities PSYCHIATRIC: alert cooperative and oriented to person, place and time. Euthymic mood Results & Data Results & Data ([facility]) Vital Signs (Past 12 Hours) Vital Signs Temp Pulse Pulse Resp BP Pulse Ox 05/22/21 04:00 55 L 05/22/21 03:47 36.6 C 77 18 133/65 96 05/21/21 22:40 36.8 C 88 20 136/80 96 05/21/21 19:29 36.8 C 65 20 117/74 96 Laboratory Results 05/22/21 05/22/21 05/22/21 Range/Units 06:57 06:57 06:57 WBC 7.15 (4.8-10.8) K/uL RBC 4.88 (4.7-6.1) M/uL Hgb 14.6 (14.0-18.0) g/dL Hct 43.7 (42-52) % MCV 89.5 (80-100) fL MCH 29.9 (25-34) pg MCHC 33.4 (32-36) g/dL RDW Std Deviation 47.5 H (36.4-46.3) fL RDW Coeff of Danielle 14.5 (11.5-14.5) % Plt Count 335 (130-400) K/uL MPV 10.2 (7.4-10.4) fL Sodium 141 (136-145) mmol/L Potassium 4.2 (3.5-5.1) mmol/L Chloride 110 H (98-107) mmol/L Carbon Dioxide 25 (21-32) mmol/L Anion Gap 6.0 (3-11) BUN 31 H (7-18) mg/dl Creatinine 0.72 (0.6-1.4) mg/dl Est Cr Clr Drug Dosing 111.4 ml/min Est GFR ( Amer) 112.7 ml/min Est GFR (Non-Af Amer) 97.2 ml/min BUN/Creatinine Ratio 42.5 H (10-20) Glucose 99 (70-99) mg/dl Calcium 8.8 (8.5-10.1) mg/dl Phosphorus 3.4 (2.5-4.9) mg/dl Magnesium 2.4 (1.8-2.4) mg/dl AST 21 (15-37) U/L ALT 40 (12-78) C-Reactive Protein 3.33 H (0-0.29) mg/dl Procalcitonin 0.06 (0-0.5) ng/ml Medications Administered Current Inpatient Medications Acetaminophen (Acetaminophen 325 Mg Tab) 650 mg PO Q4H PRN PRN Reason: Pain or Fever Stop: 06/19/21 02:27 Last Admin: 05/21/21 21:36 Dose: 650 mg Documented by: Albuterol (Albuterol Hfa 8 Gm Inhaler) 2 puffs INH Q4H PRN PRN Reason: Shortness Of Breath Or Wheezin Stop: 06/19/21 02:27 Last Admin: 05/21/21 05:17 Dose: 2 puffs Documented by: Enoxaparin Sodium (Enoxaparin Inj 40 Mg/0.4 Ml Syr) 40 mg SQ Q24H [facility] Stop: 06/19/21 08:59 Last Admin: 05/21/21 08:06 Dose: 40 mg Documented by: Fluticasone Furoate (Fluticasone Furoate 100mcg 14 Puffs/Inhaler) 1 puffs INH DAILY [facility] Stop: 06/19/21 08:59 Last Admin: 05/21/21 08:06 Dose: 1 puffs Documented by: Guaifenesin (Guaifenesin 600 Mg Tabcr) 600 mg PO Q12 [facility] Stop: 06/20/21 08:59 Last Admin: 05/21/21 20:09 Dose: 600 mg Documented by: Remdesivir 100 mg/ Sodium (Chloride) 250 mls @ 250 mls/hr IV Q24H [facility]; Protocol Stop: 05/23/21 20:59 Last Infusion: 05/21/21 23:04 Dose: Infused Documented by: Dexamethasone 6 mg/ Syringe 1.5 mls @ 1 mls/min IV DAILY [facility] Stop: 05/30/21 08:59 Last Admin: 05/21/21 08:05 Dose: 1 mls/min Documented by: Lactobacillus Acidoph/Casei/Rhamnos (Advanced Probiotic 1250 Mg Capsule) 2 cap PO DAILY [facility] Stop: 06/20/21 16:14 Last Admin: 05/21/21 17:03 Dose: 2 cap Documented by: Losartan Potassium (Losartan Potassium 50 Mg Tab) 50 mg PO DAILY [facility] Stop: 06/19/21 08:59 Last Admin: 05/21/21 08:06 Dose: 50 mg Documented by: Nitroglycerin (Nitroglycerin Sl 0.4 Mg/Tab Tab) 0.4 mg SL UD PRN PRN Reason: Chest Pain Stop: 06/19/21 02:27 Ondansetron HCl (Ondansetron Inj 2 Mg/Ml 2 Ml Vial) 4 mg IV Q6H PRN PRN Reason: Nausea Stop: 06/19/21 02:27 Sodium Chloride (Sodium Chloride 0.9% 10ml Flush) 30 ml IV Q24H [facility] Stop: 05/23/21 21:01 Last Admin: 05/21/21 21:42 Dose: 30 ml Documented by:
[2021-05-22 07:52] LABS: Hematocrit (blood only) 43.7 % (42-52); Hemoglobin 14.6 g/dL (14.0-18.0); Mean Corpuscular Hemoglobin 29.9 pg (25-34); Mean Corpuscular Hgb Conc 33.4 g/dL (32-36); Mean Corpuscular Volume 89.5 fL (80-100); Mean Platelet Volume 10.2 fL (7.4-10.4); Platelet Count 335 K/uL (130-400); RDW Coefficient of Variation 14.5 % (11.5-14.5); RDW Standard Deviation 47.5 fL (36.4-46.3); Red Blood Count 4.88 M/uL (4.7-6.1); White Blood Count 7.15 K/uL (4.8-10.8)
[2021-05-22 08:08] LABS: BUN Creatinine Ratio 42.5 (10-20); C Reactive Protein 3.33 mg/dl (0-0.29); Calcium 8.8 mg/dl (8.5-10.1); Creatinine Clr Calc Pharmacy 111.4 ml/min; Est GFR (African American) 112.7 ml/min; Est GFR (Non-African American) 97.2 ml/min; Magnesium 2.4 mg/dl (1.8-2.4); Phosphorus 3.4 mg/dl (2.5-4.9); Potassium 4.2 mmol/L (3.5-5.1)
[2021-05-22] MEDS: ADVANCED PROBIOTIC 1250 MG CAPSULE PO SCH (08:21)
[2021-05-22] MEDS: dexAMETHasone 6 MG in SYRINGE 0 ML IV SCH (08:21)
[2021-05-22] MEDS: guaiFENesin 600 MG TABCR PO SCH ×2 (08:21→22:12)
[2021-05-22] MEDS: FLUTICASONE FUROATE 100MCG 14 PUFFS/INHALER INH SCH (08:22)
[2021-05-22] MEDS: LOSARTAN POTASSIUM 50 MG TAB PO SCH (08:22)
[2021-05-22] MEDS: ENOXAPARIN INJ 40 MG/0.4 ML SYR SQ SCH ×2 (08:22→22:12)
[2021-05-22] MEDS: CHLORASEPTIC 1.4% SOLN 180 ML BTL MT PRN ×2 (09:05→14:00)
[2021-05-22] MEDS ORDERED: COUGH DROP (SUGAR FREE) LOZ 24 LOZ/1 BOX BUCCAL PRN (11:53)
[2021-05-22] MEDS ORDERED: FUROSEMIDE INJ 20 MG/2 ML VIAL IV ONE (14:00)
[2021-05-22] MEDS: ACETAMINOPHEN 325 MG TAB PO PRN (22:11)
[2021-05-22] MEDS: REMDESIVIR 100 MG in SODIUM CHLORIDE 0.9% 230 ML IV SCH (22:23)
[2021-05-23] MEDS: SODIUM CHLORIDE 0.9% 10ML FLUSH IV SCH ×2 (00:11→21:27)
[2021-05-23] MEDS ORDERED: MELATONIN 3 MG TAB PO PRN (00:14)
[2021-05-23 08:25] LABS: Hematocrit (blood only) 45.8 % (42-52); Hemoglobin 15.3 g/dL (14.0-18.0); Mean Corpuscular Hgb Conc 33.4 g/dL (32-36); Mean Corpuscular Volume 89.8 fL (80-100); Mean Platelet Volume 10.1 fL (7.4-10.4); Platelet Count 391 K/uL (130-400); RDW Coefficient of Variation 14.2 % (11.5-14.5); RDW Standard Deviation 46.9 fL (36.4-46.3); White Blood Count 8.14 K/uL (4.8-10.8)
[2021-05-23 08:47] LABS: BUN Creatinine Ratio 35.1 (10-20); Calcium 8.7 mg/dl (8.5-10.1); Creatinine Clr Calc Pharmacy 83.7 ml/min; Est GFR (African American) 95.1 ml/min; Magnesium 2.5 mg/dl (1.8-2.4); Phosphorus 3.6 mg/dl (2.5-4.9); Potassium 4.7 mmol/L (3.5-5.1)
[2021-05-23] MEDS: LOSARTAN POTASSIUM 50 MG TAB PO SCH (09:23)
[2021-05-23] MEDS: ENOXAPARIN INJ 40 MG/0.4 ML SYR SQ SCH ×2 (09:23→20:01)
[2021-05-23] MEDS: ADVANCED PROBIOTIC 1250 MG CAPSULE PO SCH (09:23)
[2021-05-23] MEDS: dexAMETHasone 6 MG in SYRINGE 0 ML IV SCH (09:23)
[2021-05-23] MEDS: FLUTICASONE FUROATE 100MCG 14 PUFFS/INHALER INH SCH (09:23)
[2021-05-23] MEDS: guaiFENesin 600 MG TABCR PO SCH ×2 (09:24→20:01)
--- NOTE | 2021-05-23 10:05 | Hospitalist Progress Note ---
Date of Service May 23, 2021 Assessment & Plan (1) Acute respiratory failure due to COVID-19: Plan: Continues to require high amount of oxygen, currently on 15 L Cont steroids and remdesivir therapy. Remdesivir to be finished on May 23, 5-day course No conversational dyspnea or tachypnea. Afebrile. Cont current therapy and wean oxygen as tolerated. Trend CRP, BNP. Consider lasix to keep overall net negative. If CRP >7.5 and on hi flow oxygen, may consider baricitinib therapy with steroids, however, currently does not meet criteria. CRP down to 3.3 Procalcitonin x2 negative Repeat CXR (2) Pneumonia due to 2019 novel coronavirus: Plan: plan as above (3) Hypertension: Plan: At goal, cont current therapy (4) DVT prophylaxis: Plan: Lovenox Full Dispo-cont PCU monitoring Admission and Anticipated Discharge Date Admission Date: May 20, 2021 Subjective Patient seen in follow-up of COVID 19 pneumonia, hypoxia, patient unvaccinated Currently laying in bed, resting, in NAD He still requires to be on high flow nasal cannula (15L ) Denies any chest pain, fevers chills Denies abdominal pain nausea vomiting Says he has some dry cough Review of Systems Review of Systems: All systems reviewed & are unremarkable except as noted in Subjective Physical Exam Physical Exam: CONSTITUTIONAL: WNWD, M in NAD on HF NC (14L) EYES: normal conjunctivae, no scleral icterus ENT: external ear and nose normal, MMM NECK:supple RESPIRATORY:somewhat diminished breath sounds, no wheezing, normal respiratory effort CARDIOVASCULAR: regular rate and rhythm, S1 and 2 heard without murmurs, gallops or rubs, no JVD, no peripheral edema CHEST: inspection of chest was normal GASTROINTESTINAL: soft, nontender, ND, no guarding MUSCULOSKELETAL: strength 5/5 throughout, head is normocephalic and atraumatic, SKIN: warm and dry NEUROLOGIC:Awake and alert, answers questions appropriately, speech fluent, no facial asymmetry, moves extremities PSYCHIATRIC: alert cooperative and oriented to person, place and time. Euthymic mood Results & Data Results & Data ([facility]) Vital Signs (Past 12 Hours) Vital Signs Temp Pulse Resp BP BP Pulse Ox 05/23/21 07:45 36.6 C 67 20 132/84 87 L 05/23/21 04:21 36.6 C 68 24 134/79 89 L 05/22/21 22:29 36.5 C 70 22 120/71 90 Laboratory Results 05/23/21 05/23/21 Range/Units 07:36 07:36 WBC 8.14 (4.8-10.8) K/uL RBC 5.10 (4.7-6.1) M/uL Hgb 15.3 (14.0-18.0) g/dL Hct 45.8 (42-52) % MCV 89.8 (80-100) fL MCH 30.0 (25-34) pg MCHC 33.4 (32-36) g/dL RDW Std Deviation 46.9 H (36.4-46.3) fL RDW Coeff of Danielle 14.2 (11.5-14.5) % Plt Count 391 (130-400) K/uL MPV 10.1 (7.4-10.4) fL Sodium 140 (136-145) mmol/L Potassium 4.7 (3.5-5.1) mmol/L Chloride 106 (98-107) mmol/L Carbon Dioxide 28 (21-32) mmol/L Anion Gap 6.0 (3-11) BUN 34 H (7-18) mg/dl Creatinine 0.96 (0.6-1.4) mg/dl Est Cr Clr Drug Dosing 83.7 ml/min Est GFR ( Amer) 95.1 ml/min Est GFR (Non-Af Amer) 82.0 ml/min BUN/Creatinine Ratio 35.1 H (10-20) Glucose 101 H (70-99) mg/dl Calcium 8.7 (8.5-10.1) mg/dl Phosphorus 3.6 (2.5-4.9) mg/dl Magnesium 2.5 H (1.8-2.4) mg/dl AST 21 (15-37) U/L ALT 39 (12-78) Medications Administered Current Inpatient Medications Acetaminophen (Acetaminophen 325 Mg Tab) 650 mg PO Q4H PRN PRN Reason: Pain or Fever Stop: 06/19/21 02:27 Last Admin: 05/22/21 22:11 Dose: 650 mg Documented by: Albuterol (Albuterol Hfa 8 Gm Inhaler) 2 puffs INH Q4H PRN PRN Reason: Shortness Of Breath Or Wheezin Stop: 06/19/21 02:27 Last Admin: 05/21/21 05:17 Dose: 2 puffs Documented by: Enoxaparin Sodium (Enoxaparin Inj 40 Mg/0.4 Ml Syr) 40 mg SQ Q12H [facility] Stop: 06/21/21 20:59 Last Admin: 05/23/21 09:23 Dose: 40 mg Documented by: Fluticasone Furoate (Fluticasone Furoate 100mcg 14 Puffs/Inhaler) 1 puffs INH D AILY [facility] Stop: 06/19/21 08:59 Last Admin: 05/23/21 09:23 Dose: 1 puffs Documented by: Furosemide (Furosemide Inj 20 Mg/2 Ml Vial) 20 mg IV ONE ONE Stop: 05/23/21 10:07 Guaifenesin (Guaifenesin 600 Mg Tabcr) 600 mg PO Q12 [facility] Stop: 06/20/21 08:59 Last Admin: 05/23/21 09:24 Dose: 600 mg Documented by: Remdesivir 100 mg/ Sodium (Chloride) 250 mls @ 250 mls/hr IV Q24H [facility]; Protocol Stop: 05/23/21 20:59 Last Infusion: 05/23/21 00:44 Dose: Infused Documented by: Dexamethasone 6 mg/ Syringe 1.5 mls @ 1 mls/min IV DAILY [facility] Stop: 05/30/21 08:59 Last Admin: 05/23/21 09:23 Dose: 1 mls/min Documented by: Lactobacillus Acidoph/Casei/Rhamnos (Advanced Probiotic 1250 Mg Capsule) 2 cap PO DAILY [facility] Stop: 06/20/21 16:14 Last Admin: 05/23/21 09:23 Dose: 2 cap Documented by: Losartan Potassium (Losartan Potassium 50 Mg Tab) 50 mg PO DAILY [facility] Stop: 06/19/21 08:59 Last Admin: 05/23/21 09:23 Dose: 50 mg Documented by: Melatonin (Melatonin 3 Mg Tab) 3 mg PO HS PRN PRN Reason: Sleep Stop: 06/22/21 00:13 Menthol (Cough Drop (Sugar Free) Avinash 24 Avinash/1 Box) 1 avinash BUCCAL Q2H PRN PRN Reason: Sore Throat Stop: 06/21/21 11:52 Nitroglycerin (Nitroglycerin Sl 0.4 Mg/Tab Tab) 0.4 mg SL UD PRN PRN Reason: Chest Pain Stop: 06/19/21 02:27 Ondansetron HCl (Ondansetron Inj 2 Mg/Ml 2 Ml Vial) 4 mg IV Q6H PRN PRN Reason: Nausea Stop: 06/19/21 02:27 Phenol (Chloraseptic 1.4% Soln 180 Ml Btl) 2 sprays MT Q4 PRN PRN Reason: Sore Throat Stop: 06/21/21 07:24 Last Admin: 05/22/21 14:00 Dose: 2 sprays Documented by: Sodium Chloride (Sodium Chloride 0.9% 10ml Flush) 30 ml IV Q24H [facility] Stop: 05/23/21 21:01 Last Admin: 05/23/21 00:11 Dose: 30 ml Documented by:
[2021-05-23] MEDS ORDERED: FUROSEMIDE INJ 20 MG/2 ML VIAL IV ONE (10:06)
--- NOTE | 2021-05-23 12:34 | XRay Report ---
XR chest 1V portable CLINICAL HISTORY: follow up, hypoxia, covid TECHNIQUE: Single frontal radiograph of the chest was obtained. Comparison: Comparison is made to chest one view 05/21/2021 FINDINGS: No lines and tubes are seen. The cardiomediastinal silhouette is stable. Multifocal airspace opacitie s are seen. A left effusion cannot be excluded. IMPRESSION: Redemonstration of multifocal airspace opacities compatible with history of viral pneumonia. ACT 112: Negative or not required by law. Electronically signed by: Anup Garcia M.D. 05/23/2021 12:33 PM
[2021-05-23] MEDS: REMDESIVIR 100 MG in SODIUM CHLORIDE 0.9% 230 ML IV SCH (19:58)
[2021-05-24] MEDS: guaiFENesin 600 MG TABCR PO SCH ×2 (08:20→21:35)
[2021-05-24] MEDS: LOSARTAN POTASSIUM 50 MG TAB PO SCH (08:20)
[2021-05-24] MEDS: ENOXAPARIN INJ 40 MG/0.4 ML SYR SQ SCH ×2 (08:20→21:35)
[2021-05-24] MEDS: dexAMETHasone 6 MG in SYRINGE 0 ML IV SCH (08:20)
[2021-05-24] MEDS: ADVANCED PROBIOTIC 1250 MG CAPSULE PO SCH (08:20)
[2021-05-24] MEDS: FLUTICASONE FUROATE 100MCG 14 PUFFS/INHALER INH SCH (08:20)
[2021-05-24 08:21] LABS: BUN Creatinine Ratio 37.8 (10-20); Calcium 8.9 mg/dl (8.5-10.1); Creatinine Clr Calc Pharmacy 80.3 ml/min; Est GFR (African American) 91.6 ml/min; Magnesium 2.5 mg/dl (1.8-2.4); Phosphorus 3.4 mg/dl (2.5-4.9); Potassium 4.7 mmol/L (3.5-5.1)
[2021-05-24] MEDS ORDERED: FUROSEMIDE 40 MG/4 ML VIAL IV ONE (09:14)
--- NOTE | 2021-05-24 09:14 | Hospitalist Progress Note ---
Date of Service May 24, 2021 Assessment & Plan (1) Acute respiratory failure due to COVID-19: Plan: Continues to require high amount of oxygen, on HF NC Treatment with steroids and remdesivir therapy. Remdesivir finished on May 23, (5-day course) No conversational dyspnea or tachypnea. Afebrile. Cont current therapy and wean oxygen as tolerated. Lasix prn CRP downtrending, CRP down to 3.3 If CRP >7.5 and on hi flow oxygen, may consider baricitinib therapy with steroids, however, currently does not meet criteria. Procalcitonin x2 negative Repeat CXR unchanged 05/24 - Pt finished treatment with remdesivir, procalcitoin negative, CRP downtrending, repeat chest x-ray unchanged, patient's oxygen requirement increased. We will check CT angio to rule out PE. We will repeat CRP. (2) Pneumonia due to 2019 novel coronavirus: Plan: plan as above (3) Hypertension: Plan: At goal, cont current therapy (4) DVT prophylaxis: Plan: Lovenox Full Dispo- PCU Admission and Anticipated Discharge Date Admission Date: May 20, 2021 Subjective Patient seen in follow-up of COVID 19 pneumonia, hypoxia, patient unvaccinated Currently laying in bed, in NAD, but on HF NC Denies any chest pain, fevers chills Denies abdominal pain nausea vomiting Says he has some dry cough Finished treatment with remdesivir, procalcitoin negative, CRP downtrending, repeat chest x-ray unchanged, patient's oxygen requirement increased. We will check CT angio to rule out PE. We will repeat CRP. Review of Systems Review of Systems: All systems reviewed & are unremarkable except as noted in Subjective Physical Exam Physical Exam: CONSTITUTIONAL: WNWD, M in NAD on HF NC EYES: normal conjunctivae, no scleral icterus ENT: external ear and nose normal, MMM NECK:supple RESPIRATORY:somewhat diminished breath sounds, no wheezing, normal respiratory effort CARDIOVASCULAR: regular rate and rhythm, S1 and 2 heard without murmurs, gallops or rubs, no JVD, no peripheral edema CHEST: inspection of chest was normal GASTROINTESTINAL: soft, nontender, ND, no guarding MUSCULOSKELETAL: strength 5/5 throughout, head is normocephalic and atraumatic, SKIN: warm and dry NEUROLOGIC:Awake and alert, answers questions appropriately, speech fluent, no facial asymmetry, moves extremities PSYCHIATRIC: alert cooperative and oriented to person, place and time. Euthymic mood Results & Data Results & Data ([facility]) Vital Signs (Past 12 Hours) Vital Signs Temp Pulse Resp BP Pulse Ox 05/24/21 07:48 36.9 C 86 24 124/65 89 L 05/24/21 05:03 36.9 C 74 18 117/78 92 05/24/21 02:28 54 L 18 96 05/23/21 23:31 36.6 C 70 20 98/73 L 88 L 05/23/21 22:32 65 26 H 93 05/23/21 21:35 61 20 91 Laboratory Results 05/24/21 Range/Units 07:30 Sodium 141 (136-145) mmol/L Potassium 4.7 (3.5-5.1) mmol/L Chloride 106 (98-107) mmol/L Carbon Dioxide 30 (21-32) mmol/L Anion Gap 5.0 (3-11) BUN 37 H (7-18) mg/dl Creatinine 0.99 (0.6-1.4) mg/dl Est Cr Clr Drug Dosing 80.3 ml/min Est GFR ( Amer) 91.6 ml/min Est GFR (Non-Af Amer) 79.0 ml/min BUN/Creatinine Ratio 37.8 H (10-20) Glucose 106 H (70-99) mg/dl Calcium 8.9 (8.5-10.1) mg/dl Phosphorus 3.4 (2.5-4.9) mg/dl Magnesium 2.5 H (1.8-2.4) mg/dl AST 18 (15-37) U/L ALT 37 (12-78) Medications Administered Current Inpatient Medications Acetaminophen (Acetaminophen 325 Mg Tab) 650 mg PO Q4H PRN PRN Reason: Pain or Fever Stop: 06/19/21 02:27 Last Admin: 05/22/21 22:11 Dose: 650 mg Documented by: Albuterol (Albuterol Hfa 8 Gm Inhaler) 2 puffs INH Q4H PRN PRN Reason: Shortness Of Breath Or Wheezin Stop: 06/19/21 02:27 Last Admin: 05/21/21 05:17 Dose: 2 puffs Documented by: Enoxaparin Sodium (Enoxaparin Inj 40 Mg/0.4 Ml Syr) 40 mg SQ Q12H [facility] Stop: 06/21/21 20:59 Last Admin: 05/24/21 08:20 Dose: 40 mg Documented by: Fluticasone Furoate (Fluticasone Furoate 100mcg 14 Puffs/Inhaler) 1 puffs INH DAILY [facility] Stop: 06/19/21 08:59 Last Admin: 05/24/21 08:20 Dose: 1 puffs Documented by: Guaifenesin (Guaifenesin 600 Mg Tabcr) 600 mg PO Q12 [facility] Stop: 06/20/21 08:59 Last Admin: 05/24/21 08:20 Dose: 600 mg Documented by: Dexamethasone 6 mg/ Syringe 1.5 mls @ 1 mls/min IV DAILY [facility] Stop: 05/30/21 08:59 Last Admin: 05/24/21 08:20 Dose: 1 mls/min Documented by: Lactobacillus Acidoph/Casei/Rhamnos (Advanced Probiotic 1250 Mg Capsule) 2 cap PO DAILY [facility] Stop: 06/20/21 16:14 Last Admin: 05/24/21 08:20 Dose: 2 cap Documented by: Losartan Potassium (Losartan Potassium 50 Mg Tab) 50 mg PO DAILY [facility] Stop: 06/19/21 08:59 Last Admin: 05/24/21 08:20 Dose: 50 mg Documented by: Melatonin (Melatonin 3 Mg Tab) 3 mg PO HS PRN PRN Reason: Sleep Stop: 06/22/21 00:13 Menthol (Cough Drop (Sugar Free) Avinash 24 Avinash/1 Box) 1 avinash BUCCAL Q2H PRN PRN Reason: Sore Throat Stop: 06/21/21 11:52 Nitroglycerin (Nitroglycerin Sl 0.4 Mg/Tab Tab) 0.4 mg SL UD PRN PRN Reason: Chest Pain Stop: 06/19/21 02:27 Ondansetron HCl (Ondansetron Inj 2 Mg/Ml 2 Ml Vial) 4 mg IV Q6H PRN PRN Reason: Nausea Stop: 06/19/21 02:27 Phenol (Chloraseptic 1.4% Soln 180 Ml Btl) 2 sprays MT Q4 PRN PRN Reason: Sore Throat Stop: 06/21/21 07:24 Last Admin: 01/09/22 14:00 Dose: 2 sprays Documented by:
[2021-05-24] MEDS ORDERED: OPTIRAY 320 125ml IV ONE (20:19)
--- NOTE | 2021-05-24 20:36 | CT Scan Report ---
CT angio chest PE protocol CLINICAL HISTORY: PE Covid pneumonia, dyspnea TECHNIQUE: Multidetector row helical CT of the chest was performed. Coronal and sagittal reformations were obtained. Coronal and sagittal MIPS were obtained from the axial data set and were submitted fo r review. Automated dose lowering techniques and/or adjustment according to patient size were utiliz ed for this exam. Comparison: None available at the time of this dictation. FINDINGS: Lungs and pleura: Diffuse groundglass and consolidative opacities are seen. Heart and pericardium: Heart size is normal. No pericardial effusion. Vessels: No evidence of pulmonary embolism. Moderate atherosclerotic calcifications are seen. Mediastinum and brigette: Subcentimeter lymph nodes are seen. Chest wall and lower neck: Unremarkable. Abdomen: Unremarkable. Bones: Degenerative changes in the thoracic spine. IMPRESSION: 1. No evidence of pulmonary embolism. 2. Groundglass and consolidative opacities and mediastinal and hilar lymphadenopathy compatible with viral pneumonia. ACT 112: Negative or not required by law. Electronically signed by: Anup Garcia M.D. 05/24/2021 8:35 PM
[2021-05-24] MEDS: ACETAMINOPHEN 325 MG TAB PO PRN (22:31)
[2021-05-25] MEDS: ADVANCED PROBIOTIC 1250 MG CAPSULE PO SCH (08:16)
[2021-05-25] MEDS: guaiFENesin 600 MG TABCR PO SCH ×2 (08:16→20:41)
[2021-05-25] MEDS: FLUTICASONE FUROATE 100MCG 14 PUFFS/INHALER INH SCH (08:16)
[2021-05-25] MEDS: dexAMETHasone 6 MG in SYRINGE 0 ML IV SCH (08:16)
[2021-05-25] MEDS: LOSARTAN POTASSIUM 50 MG TAB PO SCH (08:17)
[2021-05-25] MEDS: ENOXAPARIN INJ 40 MG/0.4 ML SYR SQ SCH ×2 (08:17→20:42)
[2021-05-25] MEDS: CHLORASEPTIC 1.4% SOLN 180 ML BTL MT PRN (08:18)
[2021-05-25 08:33] LABS: Hematocrit (blood only) 45.2 % (42-52); Hemoglobin 15.3 g/dL (14.0-18.0); Mean Corpuscular Hemoglobin 30.2 pg (25-34); Mean Corpuscular Hgb Conc 33.8 g/dL (32-36); Mean Corpuscular Volume 89.2 fL (80-100); Mean Platelet Volume 10.1 fL (7.4-10.4); Platelet Count 450 K/uL (130-400); RDW Standard Deviation 45.8 fL (36.4-46.3); Red Blood Count 5.07 M/uL (4.7-6.1); White Blood Count 10.44 K/uL (4.8-10.8)
[2021-05-25 09:15] LABS: Albumin Globulin Ratio 1.1 (0.9-2); Albumin Level 3.3 gm/dl (3.4-5.0); Bilirubin,Total 0.7 mg/dl (0.2-1.0); Calcium 8.5 mg/dl (8.5-10.1); Phosphorus 3.6 mg/dl (2.5-4.9); Potassium 4.4 mmol/L (3.5-5.1); Total Protein 6.3 gm/dl (6.0-8.3)
[2021-05-25 09:44] LABS: BUN Creatinine Ratio 38.5 (10-20); Est GFR (African American) 95.1 ml/min; Magnesium 2.3 mg/dl (1.7-2.4)
--- NOTE | 2021-05-25 23:26 | Hospitalist Progress Note ---
Date of Service May 25, 2021 Assessment & Plan (1) Acute respiratory failure due to COVID-19: (2) Pneumonia due to 2019 novel coronavirus: Plan: Present on admission with worsening shortness of breath Test is positive for COVID-19 and unvaccinated CXR on admission showed multifocal airspace consolidation is consistent with the reported history of a viral pneumonia. CTA chest showed No evidence of pulmonary embolism. Groundglass and consolidative opacities and mediastinal and hilar lymphadenopathy compatible with viral pneumonia. Completed the course of remdesivir on May 23 Continue dexamethasone IV complete 10 days course Continue high flow oxygen supplement We will monitor inflammatory markers such as ESR and CRP If CRP >7.5 and on high flow oxygen, may consider baricitinib therapy with steroids We will give Lasix IV as needed Patient advised to continue with self proning (3) Hypertension: Plan: BP stable (4) DVT prophylaxis: Plan: Lovenox Full Dispo-we will discharge once medically stable Spoke to today that asked me to call her daughter. Call her daughter and provide with updates and answered all her questioned Admission and Anticipated Discharge Date Admission Date: May 20, 2021 Subjective Patient was seen and examined for follow-up of shortness of breath due to COVID- 19 Sitting in chair with no acute distress Continue require high flow oxygen supplement with 40 L and 100% FiO2 Patient said his breathing is much better and does not feel like his struggle to get air I called his that asked me to call daughter to discuss the case Spoke to daughter and explained to her in details about monoclonal antibody and answered all all question Not a candidate for monoclonal antibody due to inpatient admission and the severity of the illness since require 40% of oxygen supplement Denies any chest pain, fevers chills Review of Systems Review of Systems: All systems reviewed & are unremarkable except as noted in Subjective Physical Exam Physical Exam: General- No acute distress Head- atraumatic Eyes- PERRL, EOMI, ENT- oropharynx clear Neck- supple, no JVD Lungs-decreased breath sound Heart- regular rhythm; no murmur Abdomen- normal bowel sounds, soft, nontender Extremities- no calf tenderness Neuro- alert, oriented x 3; PERRL, EOMI; no facial palsy; no dysarthria Skin- warm & dry Results & Data Results & Data ([facility]) Vital Signs (Past 12 Hours) Vital Signs Temp Pulse Resp BP BP Pulse Ox 05/25/21 20:05 87 22 90 05/25/21 19:47 36.7 C 77 22 122/69 89 L 05/25/21 16:29 76 20 90 05/25/21 15:36 36.7 C 76 22 94/59 L 89 L 05/25/21 11:23 36.6 C 77 18 126/70 92
[2021-05-25] MEDS ORDERED: FUROSEMIDE INJ 20 MG/2 ML VIAL IV STA (23:30)
[2021-05-26] MEDS ORDERED: dexAMETHasone 6 MG in SYRINGE 0 ML IV ONE (03:39)
[2021-05-26] MEDS: dexAMETHasone 6 MG in SYRINGE 0 ML IV SCH (04:22)
[2021-05-26] MEDS: ACETAMINOPHEN 325 MG TAB PO PRN (05:15)
[2021-05-26] MEDS ORDERED: SODIUM CHLORIDE 0.65% NA SOLN 45 ML (OCEAN) PRN (05:27)
[2021-05-26 09:37] LABS: BUN Creatinine Ratio 46.1 (10-20); Calcium 8.7 mg/dl (8.5-10.1); Creatinine Clr Calc Pharmacy 88.3 ml/min; Est GFR (African American) 103.3 ml/min; Est GFR (Non-African American) 89.1 ml/min; Potassium 4.9 mmol/L (3.5-5.1)
[2021-05-26] MEDS: FLUTICASONE FUROATE 100MCG 14 PUFFS/INHALER INH SCH (09:49)
[2021-05-26] MEDS: ADVANCED PROBIOTIC 1250 MG CAPSULE PO SCH (09:49)
[2021-05-26] MEDS: guaiFENesin 600 MG TABCR PO SCH ×2 (09:49→19:44)
[2021-05-26] MEDS: ENOXAPARIN INJ 40 MG/0.4 ML SYR SQ SCH ×2 (09:50→19:44)
[2021-05-26] MEDS: LOSARTAN POTASSIUM 50 MG TAB PO SCH (09:50)
--- NOTE | 2021-05-26 19:19 | Hospitalist Progress Note ---
Date of Service May 26, 2021 Assessment & Plan (1) Acute respiratory failure due to COVID-19: (2) Pneumonia due to 2019 novel coronavirus: Plan: Present on admission with worsening shortness of breath Test is positive for COVID-19 and unvaccinated CXR on admission showed multifocal airspace consolidation is consistent with the reported history of a viral pneumonia. CTA chest showed No evidence of pulmonary embolism. Groundglass and consolidative opacities and mediastinal and hilar lymphadenopathy compatible with viral pneumonia. Completed the course of remdesivir on May 23 Continue dexamethasone IV complete 10 days course Continue high flow oxygen supplement ESR 74 and CRP 6.37 today We will monitor inflammatory markers such as ESR and CRP If CRP >7.5 and on high flow oxygen, may consider baricitinib therapy with steroids We will give Lasix IV as needed Patient advised to continue with self proning (3) Hypertension: Plan: BP stable (4) DVT prophylaxis: Plan: Lovenox Full Dispo-we will discharge once medically stable Spoke to on 05/25/21 that asked me to call her daughter. Call her 05/25/21 and provide with updates and answered all her questioned Admission and Anticipated Discharge Date Admission Date: May 20, 2021 Subjective Patient was seen and examined for follow-up of shortness of breath due to COVID- 19 Lying in bed with no acute distress Pt said that her breathing feels much better Denies any chest pain, palpitation, dizziness, fever and chills Review of Systems Review of Systems: All systems reviewed & are unremarkable except as noted in Subjective Physical Exam Physical Exam: General- No acute distress Head- atraumatic Eyes- PERRL, EOMI, ENT- oropharynx clear Neck- supple, no JVD Lungs-decreased breath sound Heart- regular rhythm; no murmur Abdomen- normal bowel sounds, soft, nontender Extremities- no calf tenderness Neuro- alert, oriented x 3; PERRL, EOMI; no facial palsy; no dysarthria Skin- warm & dry Results & Data Results & Data ([facility]) Vital Signs (Past 12 Hours) Vital Signs Temp Pulse Pulse Pulse Resp BP Pulse Ox 05/26/21 15:28 37.0 C 70 20 96/55 L 91 05/26/21 15:02 64 21 90 05/26/21 11:35 37.5 C 69 20 97/60 L 92 05/26/21 10:47 82 25 H 90 05/26/21 09:52 85 20 108/72 91 05/26/21 08:55 88 20 88 L 05/26/21 08:26 36.8 C 85 100/65 86 L 05/26/21 08:00 62
[2021-05-27] MEDS: PHENAZOPYRIDINE HCL 100 MG TAB PO PRN ×2 (01:46→09:04)
[2021-05-27] MEDS: ACETAMINOPHEN 325 MG TAB PO PRN ×2 (06:49→22:50)
[2021-05-27 07:05] LABS: Appearance Urine Clear (Clear); Bacteria Urine Automated Negative (Negative); Bilirubin Urine 1+ (Negative); Blood Urine 1+ (Negative); Color Urine Orange; Glucose Urine UA Negative (Negative); Ketones Urine Negative (Negative); Leukocyte Esterase Urine 1+ (Negative); Nitrite Urine Positive (Negative); Protein Urine Trace (Negative); RBC Urine Automated 0-4 /hpf (0-4); Specific Gravity Urine 1.024 (1.000-1.030); Urobilinogen Urine Negative (Negative)
[2021-05-27] MEDS ORDERED: dexAMETHasone 6 MG in SYRINGE 0 ML IV SCH (09:00)
[2021-05-27] MEDS: ENOXAPARIN INJ 40 MG/0.4 ML SYR SQ SCH ×2 (09:03→21:00)
[2021-05-27] MEDS: LOSARTAN POTASSIUM 50 MG TAB PO SCH (09:03)
[2021-05-27] MEDS: guaiFENesin 600 MG TABCR PO SCH ×2 (09:03→21:00)
[2021-05-27] MEDS: ADVANCED PROBIOTIC 1250 MG CAPSULE PO SCH (09:03)
[2021-05-27] MEDS: FLUTICASONE FUROATE 100MCG 14 PUFFS/INHALER INH SCH (09:04)
[2021-05-27] MEDS: dexAMETHasone 6 MG in SYRINGE 0 ML IV SCH (10:23)
--- NOTE | 2021-05-27 21:28 | Hospitalist Progress Note ---
Date of Service May 27, 2021 Assessment & Plan (1) Acute respiratory failure due to COVID-19: (2) Pneumonia due to 2019 novel coronavirus: Plan: Present on admission with worsening shortness of breath Test is positive for COVID-19 and unvaccinated CXR on admission showed multifocal airspace consolidation is consistent with the reported history of a viral pneumonia. CTA chest showed No evidence of pulmonary embolism. Groundglass and consolidative opacities and mediastinal and hilar lymphadenopathy compatible with viral pneumonia. Completed the course of remdesivir on May 23 Continue dexamethasone IV complete 10 days course Continue high flow oxygen supplement with oxygen 40L with 90% FIO2 Inflammatory markers trending down with ESR from 74 to 63 and CRP from 6.37 to 3.89. If CRP >7.5 and on high flow oxygen, may consider baricitinib therapy with steroids We will give Lasix IV as needed Patient advised to continue with self proning (3) Hypertension: Plan: BP stable (4) DVT prophylaxis: Plan: Lovenox Full Dispo-we will discharge once medically stable Last spoke to emmie Verma on the phone on 05/27/21: for about 20 minutes provided with updates and answered all her questions Admission and Anticipated Discharge Date Admission Date: May 20, 2021 Subjective Patient was seen and examined for follow-up of shortness of breath due to COVID- 19 Lying in bed with no acute distress Patient said that he started to feel much better Spoke to emmie Verma on the phone today for about 20 minutes provided with updates and answered all her questions Denies any chest pain, palpitation, dizziness, fever and chills Review of Systems Review of Systems: All systems reviewed & are unremarkable except as noted in Subjective Physical Exam Physical Exam: General- No acute distress Head- atraumatic Eyes- PERRL, EOMI, ENT- oropharynx clear Neck- supple, no JVD Lungs-decreased breath sound Heart- regular rhythm; no murmur Abdomen- normal bowel sounds, soft, nontender Extremities- no calf tenderness Neuro- alert, oriented x 3; PERRL, EOMI; no facial palsy; no dysarthria Skin- warm & dry Results & Data Results & Data ([facility]) Vital Signs (Past 12 Hours) Vital Signs Temp Pulse Pulse Resp BP Pulse Ox 05/27/21 20:14 80 20 89 L 05/27/21 19:53 37.0 C 76 26 H 126/73 90 05/27/21 15:42 36.9 C 69 19 109/68 91 05/27/21 14:52 71 20 90 05/27/21 11:12 37.0 C 73 23 104/71 91 05/27/21 10:51 78 22 94
[2021-05-28] MEDS: ENOXAPARIN INJ 40 MG/0.4 ML SYR SQ SCH ×2 (08:21→20:20)
[2021-05-28] MEDS: ADVANCED PROBIOTIC 1250 MG CAPSULE PO SCH (08:22)
[2021-05-28] MEDS: FLUTICASONE FUROATE 100MCG 14 PUFFS/INHALER INH SCH (08:22)
[2021-05-28] MEDS: guaiFENesin 600 MG TABCR PO SCH ×2 (08:22→20:19)
[2021-05-28] MEDS: LOSARTAN POTASSIUM 50 MG TAB PO SCH (08:23)
[2021-05-28] MEDS: dexAMETHasone 6 MG in SYRINGE 0 ML IV SCH (08:35)
--- NOTE | 2021-05-28 23:35 | Hospitalist Progress Note ---
Date of Service May 28, 2021 Assessment & Plan (1) Acute respiratory failure due to COVID-19: (2) Pneumonia due to 2019 novel coronavirus: Plan: Present on admission with worsening shortness of breath Test is positive for COVID-19 and unvaccinated CXR on admission showed multifocal airspace consolidation is consistent with the reported history of a viral pneumonia. CTA chest showed No evidence of pulmonary embolism. Groundglass and consolidative opacities and mediastinal and hilar lymphadenopathy compatible with viral pneumonia. Completed the course of remdesivir on May 23 Continue dexamethasone IV complete 10 days course Continue high flow oxygen supplement with oxygen 40L with 90% FIO2 Inflammatory markers trending down with ESR from 74 to 63 and CRP from 6.37 to 3.89. If CRP >7.5 and on high flow oxygen, may consider baricitinib therapy with steroids We will give Lasix IV as needed Patient advised to continue with self proning (3) Hypertension: Plan: BP stable (4) DVT prophylaxis: Plan: Lovenox Full Dispo-we will discharge once medically stable Last spoke to emmie Verma on the phone on 05/27/21: for about 20 minutes provided with updates and answered all her questions Admission and Anticipated Discharge Date Admission Date: May 20, 2021 Subjective Patient was seen and examined for follow-up of shortness of breath due to COVID- 19 Lying in bed with no acute distress Patient said that he started to feel much better Denies any chest pain, palpitation, dizziness, fever and chills Review of Systems Review of Systems: All systems reviewed & are unremarkable except as noted in Subjective Physical Exam Physical Exam: General- No acute distress Head- atraumatic Eyes- PERRL, EOMI, ENT- oropharynx clear Neck- supple, no JVD Lungs-decreased breath sound Heart- regular rhythm; no murmur Abdomen- normal bowel sounds, soft, nontender Extremities- no calf tenderness Neuro- alert, oriented x 3; PERRL, EOMI; no facial palsy; no dysarthria Skin- warm & dry Results & Data Results & Data ([facility]) Vital Signs (Past 12 Hours) Vital Signs Temp Pulse Pulse Resp BP BP Pulse Ox 05/28/21 22:51 36.4 C L 71 22 139/84 89 L 05/28/21 20:48 22 90 05/28/21 19:00 36.6 C 82 19 103/68 92 05/28/21 15:52 36.8 C 71 19 103/67 93 05/28/21 15:08 85 20 93
[2021-05-29 08:01] LABS: Hematocrit (blood only) 42.1 % (42-52); Hemoglobin 14.5 g/dL (14.0-18.0); Mean Corpuscular Hemoglobin 30.5 pg (25-34); Mean Corpuscular Hgb Conc 34.4 g/dL (32-36); Mean Corpuscular Volume 88.6 fL (80-100); Mean Platelet Volume 10.2 fL (7.4-10.4); Platelet Count 382 K/uL (130-400); RDW Coefficient of Variation 13.6 % (11.5-14.5); RDW Standard Deviation 44.8 fL (36.4-46.3); Red Blood Count 4.75 M/uL (4.7-6.1); White Blood Count 11.06 K/uL (4.8-10.8)
[2021-05-29 08:42] LABS: Ferritin 991.4 ng/ml (8-388)
[2021-05-29] MEDS: dexAMETHasone 6 MG in SYRINGE 0 ML IV SCH (08:43)
[2021-05-29] MEDS: ENOXAPARIN INJ 40 MG/0.4 ML SYR SQ SCH ×2 (08:44→20:24)
[2021-05-29] MEDS: FLUTICASONE FUROATE 100MCG 14 PUFFS/INHALER INH SCH (08:44)
[2021-05-29] MEDS: guaiFENesin 600 MG TABCR PO SCH ×2 (08:45→20:25)
[2021-05-29] MEDS: LOSARTAN POTASSIUM 50 MG TAB PO SCH (08:45)
[2021-05-29] MEDS: ADVANCED PROBIOTIC 1250 MG CAPSULE PO SCH (08:45)
[2021-05-29 09:28] LABS: BUN Creatinine Ratio 41.4 (10-20); Calcium 8.5 mg/dl (8.5-10.1); Creatinine Clr Calc Pharmacy 111.9 ml/min; Est GFR (Non-African American) 98.3 ml/min; Potassium 5.2 mmol/L (3.5-5.1)
[2021-05-29] MEDS ORDERED: FUROSEMIDE INJ 20 MG/2 ML VIAL IV ONE (23:13)
[2021-05-29] MEDS ORDERED: bisacodyL 5 MG TABEC PO PRN (23:31)
--- NOTE | 2021-05-29 23:31 | Hospitalist Progress Note ---
Date of Service May 29, 2021 Assessment & Plan (1) Acute respiratory failure due to COVID-19: (2) Pneumonia due to 2019 novel coronavirus: Plan: Present on admission with worsening shortness of breath Test is positive for COVID-19 and unvaccinated CXR on admission showed multifocal airspace consolidation is consistent with the reported history of a viral pneumonia. CTA chest showed No evidence of pulmonary embolism. Groundglass and consolidative opacities and mediastinal and hilar lymphadenopathy compatible with viral pneumonia. Completed the course of remdesivir on May 23 Continue dexamethasone IV complete 10 days course Continue high flow oxygen supplement with oxygen 40L with 90% FIO2 Inflammatory markers trending down with ESR from 74 to 63 and CRP from 6.37 to 3.89. If CRP >7.5 and on high flow oxygen, may consider baricitinib therapy with steroids We will give Lasix IV as needed Patient advised to continue with self proning (3) Hypertension: Plan: BP stable (4) DVT prophylaxis: Plan: Lovenox Full Dispo-we will discharge once medically stable Last spoke to emmie Verma on the phone on 05/27/21: for about 20 minutes provided with updates and answered all her questions Admission and Anticipated Discharge Date Admission Date: May 20, 2021 Subjective Patient was seen and examined for follow-up of shortness of breath due to COVID- 19 Sitting in chair with no acute distress Patient said he feels much better He said that early today when he got up, his oxygen sat dropped in the low 80's Denies any chest pain, palpitation, dizziness, fever and chills Review of Systems Review of Systems: All systems reviewed & are unremarkable except as noted in Subjective Physical Exam Physical Exam: General- No acute distress Head- atraumatic Eyes- PERRL, EOMI, ENT- oropharynx clear Neck- supple, no JVD Lungs-decreased breath sound Heart- regular rhythm; no murmur Abdomen- normal bowel sounds, soft, nontender Extremities- no calf tenderness Neuro- alert, oriented x 3; PERRL, EOMI; no facial palsy; no dysarthria Skin- warm & dry Results & Data Results & Data ([facility]) Vital Signs (Past 12 Hours) Vital Signs Temp Pulse Pulse Resp BP BP Pulse Ox 05/29/21 22:58 36.8 C 59 L 18 102/64 93 05/29/21 19:15 36.7 C 74 18 112/76 91 05/29/21 15:48 36.5 C 110 H 18 100/66 92 05/29/21 15:45 67 20 93 05/29/21 11:30 63 20 92
[2021-05-30 07:43] LABS: BUN Creatinine Ratio 36.2 (10-20); Calcium 8.4 mg/dl (8.5-10.1); Creatinine Clr Calc Pharmacy 113.1 ml/min; Est GFR (African American) 114.7 ml/min; Est GFR (Non-African American) 98.9 ml/min; Potassium 4.8 mmol/L (3.5-5.1)
[2021-05-30] MEDS: ADVANCED PROBIOTIC 1250 MG CAPSULE PO SCH (08:18)
[2021-05-30] MEDS: LOSARTAN POTASSIUM 50 MG TAB PO SCH (08:18)
[2021-05-30] MEDS: ENOXAPARIN INJ 40 MG/0.4 ML SYR SQ SCH ×2 (08:18→20:29)
[2021-05-30] MEDS: FLUTICASONE FUROATE 100MCG 14 PUFFS/INHALER INH SCH (08:18)
[2021-05-30] MEDS: guaiFENesin 600 MG TABCR PO SCH ×2 (08:18→20:29)
[2021-05-30 11:13] LABS: C Reactive Protein 5.68 mg/dl (0-0.5)
[2021-05-30 11:47] LABS: C Reactive Protein 6.37 mg/dl (0-0.5)
[2021-05-30 12:45] LABS: C Reactive Protein 3.03 mg/dl (0-0.5)
--- NOTE | 2021-05-30 23:10 | Hospitalist Progress Note ---
Date of Service May 30, 2021 Assessment & Plan (1) Acute respiratory failure due to COVID-19: (2) Pneumonia due to 2019 novel coronavirus: Plan: Present on admission with worsening shortness of breath Test is positive for COVID-19 and unvaccinated CXR on admission showed multifocal airspace consolidation is consistent with the reported history of a viral pneumonia. CTA chest showed No evidence of pulmonary embolism. Groundglass and consolidative opacities and mediastinal and hilar lymphadenopathy compatible with viral pneumonia. Completed the course of remdesivir on May 23 Continue dexamethasone IV complete 10 days course Continue high flow oxygen supplement with oxygen 40L with 90% FIO2 Inflammatory markers trending down with CRP from 6.37 to 3.89 Will continue monitor ESR and Ferritin If CRP >7.5 and on high flow oxygen, may consider baricitinib therapy with steroids Lasix IV as needed Will continue to wean off oxygen slowly Patient advised to continue with self proning (3) Hypertension: Plan: BP stable (4) DVT prophylaxis: Plan: Lovenox Full Dispo-we will discharge once medically stable Last spoke to emmie Verma on the phone on 05/27/21 for about 20 minutes provided with updates and answered all her questions Admission and Anticipated Discharge Date Admission Date: May 20, 2021 Subjective Patient was seen and examined for follow-up of shortness of breath due to COVID- 19 Sitting in chair with no acute distress Patient said he feels ok when he lie down, but the moment he got up his oxygen drops He said that he has been talking to his daughters Denies any chest pain, palpitation, dizziness, fever and chills Review of Systems Review of Systems: All systems reviewed & are unremarkable except as noted in Subjective Physical Exam Physical Exam: General- No acute distress Head- atraumatic Eyes- PERRL, EOMI, ENT- oropharynx clear Neck- supple, no JVD Lungs-decreased breath sound Heart- regular rhythm; no murmur Abdomen- normal bowel sounds, soft, nontender Extremities- no calf tenderness Neuro- alert, oriented x 3; PERRL, EOMI; no facial palsy; no dysarthria Skin- warm & dry Results & Data Results & Data ([facility]) Vital Signs (Past 12 Hours) Vital Signs Temp Pulse Resp BP Pulse Ox 05/30/21 18:52 36.7 C 98 H 22 95/62 L 88 L 05/30/21 16:08 36.7 C 68 21 93/58 L 91 05/30/21 15:37 71 20 92 05/30/21 11:44 36.8 C 74 19 99/65 L 92 05/30/21 11:21 74 20 92
[2021-05-31 07:13] LABS: Hemoglobin 13.9 g/dL (14.0-18.0); Mean Corpuscular Hemoglobin 29.8 pg (25-34); Mean Corpuscular Hgb Conc 33.9 g/dL (32-36); Mean Platelet Volume 9.6 fL (7.4-10.4); Platelet Count 298 K/uL (130-400); RDW Coefficient of Variation 13.6 % (11.5-14.5); Red Blood Count 4.66 M/uL (4.7-6.1); White Blood Count 7.85 K/uL (4.8-10.8)
[2021-05-31] MEDS: ACETAMINOPHEN 325 MG TAB PO PRN (08:13)
[2021-05-31] MEDS: guaiFENesin 600 MG TABCR PO SCH ×2 (08:14→19:42)
[2021-05-31] MEDS: ADVANCED PROBIOTIC 1250 MG CAPSULE PO SCH (08:14)
[2021-05-31] MEDS: ENOXAPARIN INJ 40 MG/0.4 ML SYR SQ SCH ×2 (08:14→19:40)
[2021-05-31] MEDS: FLUTICASONE FUROATE 100MCG 14 PUFFS/INHALER INH SCH (08:14)
[2021-05-31] MEDS: LOSARTAN POTASSIUM 50 MG TAB PO SCH (08:14)
--- NOTE | 2021-05-31 16:38 | Hospitalist Progress Note ---
Date of Service May 31, 2021 Assessment & Plan (1) Acute respiratory failure due to COVID-19: (2) Pneumonia due to 2019 novel coronavirus: Plan: Present on admission with worsening shortness of breath Test is positive for COVID-19 and unvaccinated CXR on admission showed multifocal airspace consolidation is consistent with the reported history of a viral pneumonia. CTA chest showed No evidence of pulmonary embolism. Groundglass and consolidative opacities and mediastinal and hilar lymphadenopathy compatible with viral pneumonia. Completed the course of remdesivir on May 23 Inflammatory markers with CRP from 6.37 --> 3.89 --> 3.03-->3.52, ESR 63-->85--> 66 and ESR 991.4 --> 1183.5 Will continue monitor CRP, ESR and Ferritin Completed dexamethasone 10 days course Case discussed with pulmonology about to extend dexamethasone ( no official consult place). We will continue monitor Pt while off steroid if oxygen does not improve and inflammatory markers increase, will consider to restart Decadron at 10mg daily If CRP >7.5 and on high flow oxygen, may consider baricitinib therapy with steroids Lasix IV as needed if BP stable Continue to wean off oxygen slowly Patient advised to continue with self proning (3) Hypertension: Plan: BP stable (4) DVT prophylaxis: Plan: Lovenox Full Dispo-we will discharge once medically stable Last spoke to emmie Verma on the phone on 05/27/21 for about 20 minutes provided with updates and answered all her questions Admission and Anticipated Discharge Date Admission Date: May 20, 2021 Subjective Patient was seen and examined for follow-up of shortness of breath due to COVID- 19 Sitting in chair with no acute distress Pt said that he feels much better today He said that his breathing is better He said that he has been talking to his daughters Denies any chest pain, palpitation, dizziness, fever and chills Review of Systems Review of Systems: All systems reviewed & are unremarkable except as noted in Subjective Physical Exam Physical Exam: General- No acute distress Head- atraumatic Eyes- PERRL, EOMI, ENT- oropharynx clear Neck- supple, no JVD Lungs-decreased breath sound Heart- regular rhythm; no murmur Abdomen- normal bowel sounds, soft, nontender Extremities- no calf tenderness Neuro- alert, oriented x 3; PERRL, EOMI; no facial palsy; no dysarthria Skin- warm & dry Results & Data Results & Data ([facility]) Vital Signs (Past 12 Hours) Vital Signs Temp Pulse Pulse Resp BP BP Pulse Ox 05/31/21 15:21 69 18 92 05/31/21 11:25 36.5 C 80 22 90/60 L 88 L 05/31/21 11:08 74 16 94 05/31/21 08:20 88 18 91 05/31/21 07:31 36.9 C 67 20 97/59 L 93
[2021-06-01 08:04] LABS: BUN Creatinine Ratio 27.1 (10-20); C Reactive Protein 5.43 mg/dl (0-0.5); Creatinine Clr Calc Pharmacy 100.4 ml/min; Est GFR (Non-African American) 98.3 ml/min; Potassium 4.6 mmol/L (3.5-5.1)
[2021-06-01] MEDS: guaiFENesin 600 MG TABCR PO SCH ×2 (08:10→20:49)
[2021-06-01] MEDS: ENOXAPARIN INJ 40 MG/0.4 ML SYR SQ SCH ×2 (08:10→20:49)
[2021-06-01] MEDS: LOSARTAN POTASSIUM 50 MG TAB PO SCH (08:10)
[2021-06-01] MEDS: FLUTICASONE FUROATE 100MCG 14 PUFFS/INHALER INH SCH (08:10)
[2021-06-01] MEDS: ADVANCED PROBIOTIC 1250 MG CAPSULE PO SCH (08:10)
[2021-06-01 08:13] LABS: Ferritin 963.2 ng/ml (8-388)
--- NOTE | 2021-06-01 09:38 | XRay Report ---
XR chest 1V portable HISTORY: Shortness of breath. Covid pneumonia COMPARISON: Chest CTA 05/24/2021. FINDINGS: No pneumothorax. No pleural effusions. The heart is top normal in size. Multifocal patchy b ilateral airspace opacities have slightly progressed within the right lung base. This likely represen ts a viral pneumonia. No evidence for pulmonary edema. IMPRESSION: Interval progression of the multifocal patchy bilateral airspace opacities likely representing a meli l pneumonia. ACT 112: Negative or not required by law. Electronically signed by: Truman Ware M.D. 06/01/2021 9:37 AM
[2021-06-01] MEDS ORDERED: FUROSEMIDE 40 MG/4 ML VIAL IV ONE (13:06)
--- NOTE | 2021-06-01 14:25 | Hospitalist Progress Note ---
Date of Service June 01, 2021 Assessment & Plan (1) Acute respiratory failure due to COVID-19: Plan: Acute respiratory failure with hypoxia Management as below On vaccinated (2) Pneumonia due to 2019 novel coronavirus: Plan: Present on admission with worsening shortness of breath Test is positive for COVID-19 and unvaccinated CXR on admission showed multifocal airspace consolidation is consistent with the reported history of a viral pneumonia. CTA chest showed No evidence of pulmonary embolism. Groundglass and consolidative opacities and mediastinal and hilar lymphadenopathy compatible with viral pneumonia. Completed the course of remdesivir on May 23 Completed dexamethasone 10 days course Case discussed with pulmonology about to extend dexamethasone ( no official consult place). We will continue monitor Pt while off steroid if oxygen does not improve and inflammatory markers increase, will consider to restart Decadron at 10mg daily If CRP >7.5 and on high flow oxygen, may consider baricitinib therapy with steroids- CRP 5.43 on 06/01/2021 and ferritin at 963.2 Chest x-ray today showed increasing patchy infiltration bilaterally We will give another dose of intravenous Lasix today Continue to wean off oxygen slowly He has been proning himself as much as possible We will start intravenous dexamethasone 10 mg daily (3) Hypertension: Plan: BP stable (4) DVT prophylaxis: Plan: Lovenox Full Dispo-we will discharge once medically stable Last spoke to emmie Verma on the phone on 05/27/21 for about 20 minutes provided with updates and answered all her questions Admission and Anticipated Discharge Date Admission Date: May 20, 2021 Subjective 06/01/2021 The patient was seen and examined in telemetry unit and in the COVID room He has been feeling better but he still requires 35 L of oxygen at 80% FiO2 to maintain saturation Still has cough and significant weakness Review of Systems Review of Systems: All systems reviewed and are unremarkable except as noted below Respiratory: Shortness of breath at rest and with minimal exertion Neurologic: Generalized weakness Physical Exam Physical Exam: Lying in bed comfortably Constitutional: well developed, well nourished, + ill appearing and average body habitus Eyes: PERRL, conjunctivae normal, anicteric sclerae ENMT: external ear and nose normal, oropharynx normal Neck: trachea midline, no thyromegaly Respiratory: + respiratory distress (Minimal respiratory distress at rest) Auscultation: + diminished lung sounds and + crackles (Bilateral crackles); no wheezes Cardiovascular: Rate/Rhythm: regular rate and regular rhythm; not tachycardic Heart Sounds: normal S1 and normal S2; no murmur Extremities: no edema Gastrointestinal (Abdomen): Inspection/Auscultation: normal bowel sounds; abdomen not distended Percussion/Palpation: abdomen soft; abdomen nontender Musculoskeletal: No acute arthritis in any joint Neurologic: Alert, awake and oriented x3 Results & Data Results & Data ([facility]) Vital Signs (Past 12 Hours) Vital Signs Temp Pulse Pulse Resp BP Pulse Ox 06/01/21 13:00 106/62 06/01/21 11:44 66 20 93 06/01/21 11:09 36.8 C 67 14 99/62 L 94 06/01/21 10:54 73 06/01/21 08:30 87 20 89 L 06/01/21 07:16 37 C 72 14 100/64 91 06/01/21 03:55 67 91 06/01/21 03:00 71 20 106/62 90 Laboratory Results BMP 06/01/21 07:07 Sodium 132 L Potassium 4.6 Chloride 102 Carbon Dioxide 26 BUN 19 Creatinine 0.70 Glucose 83 Calcium 8.0 L Medications Administered Current Inpatient Medications Acetaminophen (Acetaminophen 325 Mg Tab) 650 mg PO Q4H PRN PRN Reason: Pain or Fever Stop: 06/19/21 02:27 Last Admin: 05/31/21 08:13 Dose: 650 mg Documented by: Albuterol (Albuterol Hfa 8 Gm Inhaler) 2 puffs INH Q4H PRN PRN Reason: Shortness Of Breath Or Wheezin Stop: 06/19/21 02:27 Last Admin: 05/21/21 05:17 Dose: 2 puffs Documented by: Bisacodyl (Bisacodyl 5 Mg Tabec) 5 mg PO DAILY PRN PRN Reason: Constipation Stop: 06/28/21 23:30 Enoxaparin Sodium (Enoxaparin Inj 40 Mg/0.4 Ml Syr) 40 mg SQ Q12H PRINCE Stop: 06/21/21 20:59 Last Admin: 06/01/21 08:10 Dose: 40 mg Documented by: Fluticasone Furoate (Fluticasone Furoate 100mcg 14 Puffs/Inhaler) 1 puffs INH DAILY PRINCE Stop: 06/19/21 08:59 Last Admin: 06/01/21 08:10 Dose: 1 puffs Documented by: Guaifenesin (Guaifenesin 600 Mg Tabcr) 600 mg PO Q12 PRINCE Stop: 06/20/21 08:59 Last Admin: 06/01/21 08:10 Dose: 600 mg Documented by: Lactobacillus Acidoph/Casei/Rhamnos (Advanced Probiotic 1250 Mg Capsule) 2 cap PO DAILY PRINCE Stop: 06/20/21 16:14 Last Admin: 06/01/21 08:10 Dose: 2 cap Documented by: Losartan Potassium (Losartan Potassium 50 Mg Tab) 50 mg PO DAILY PRINCE Stop: 06/19/21 08:59 Last Admin: 06/01/21 08:10 Dose: 50 mg Documented by: Melatonin (Melatonin 3 Mg Tab) 3 mg PO HS PRN PRN Reason: Sleep Stop: 06/22/21 00:13 Menthol (Cough Drop (Sugar Free) Avinash 24 Avinash/1 Box) 1 avinash BUCCAL Q2H PRN PRN Reason: Sore Throat Stop: 06/21/21 11:52 Nitroglycerin (Nitroglycerin Sl 0.4 Mg/Tab Tab) 0.4 mg SL UD PRN PRN Reason: Chest Pain Stop: 06/19/21 02:27 Ondansetron HCl (Ondansetron Inj 2 Mg/Ml 2 Ml Vial) 4 mg IV Q6H PRN PRN Reason: Nausea Stop: 06/19/21 02:27 Phenazopyridine HCl (Phenazopyridine Hcl 100 Mg Tab) 100 mg PO TID PRN PRN Reason: Bladder pain Stop: 06/26/21 00:55 Last Admin: 05/27/21 09:04 Dose: 100 mg Documented by: Phenol (Chloraseptic 1.4% Soln 180 Ml Btl) 2 sprays MT Q4 PRN PRN Reason: Sore Throat Stop: 06/21/21 07:24 Last Admin: 05/25/21 08:18 Dose: 2 sprays Documented by: Sodium Chloride (Sodium Chloride 0.65% Na Soln 45 Ml ([place])) 2 sprays NA TID PRN PRN Reason: Nasal Congestion Stop: 06/25/21 05:26 Last Admin: 05/27/21 01:45 Dose: 2 sprays Documented by:
[2021-06-01] MEDS: dexAMETHasone 10 MG in SYRINGE 0 ML IV SCH (15:31)
[2021-06-02] MEDS ORDERED: OXYMETAZOLINE 0.05% 30 ML BTL PRN (06:26)
[2021-06-02 07:24] LABS: Basophils # (auto) 0.01 K/uL (0-0.2); Basophils % (auto) 0.2 %; Hematocrit (blood only) 42.5 % (42-52); Hemoglobin 14.4 g/dL (14.0-18.0); Immature Granulocytes # (auto) 0.02 K/uL (0.00-0.02); Immature Granulocytes % (auto) 0.3 %; Lymphocytes # (auto) 0.55 K/uL (1.2-3.4); Lymphocytes % (auto) 8.9 %; Mean Corpuscular Hemoglobin 29.9 pg (25-34); Mean Corpuscular Hgb Conc 33.9 g/dL (32-36); Mean Corpuscular Volume 88.4 fL (80-100); Mean Platelet Volume 9.8 fL (7.4-10.4); Monocytes % (auto) 3.2 %; Neutrophils # (auto) 5.43 K/uL (1.4-6.5); Neutrophils % (auto) 87.4 %; Platelet Count 320 K/uL (130-400); RDW Coefficient of Variation 13.5 % (11.5-14.5); RDW Standard Deviation 44.6 fL (36.4-46.3); Red Blood Count 4.81 M/uL (4.7-6.1); White Blood Count 6.21 K/uL (4.8-10.8)
[2021-06-02 07:48] LABS: BUN Creatinine Ratio 28.9 (10-20); Calcium 8.7 mg/dl (8.5-10.1); Creatinine Clr Calc Pharmacy 84.7 ml/min; Est GFR (African American) 106.3 ml/min; Est GFR (Non-African American) 91.7 ml/min; Potassium 4.9 mmol/L (3.5-5.1)
[2021-06-02] MEDS: guaiFENesin 600 MG TABCR PO SCH ×2 (09:33→19:34)
[2021-06-02] MEDS: ADVANCED PROBIOTIC 1250 MG CAPSULE PO SCH (09:34)
[2021-06-02] MEDS: dexAMETHasone 10 MG in SYRINGE 0 ML IV SCH (09:35)
[2021-06-02] MEDS: ENOXAPARIN INJ 40 MG/0.4 ML SYR SQ SCH ×2 (09:35→19:35)
[2021-06-02] MEDS: FLUTICASONE FUROATE 100MCG 14 PUFFS/INHALER INH SCH (09:35)
[2021-06-02] MEDS: LOSARTAN POTASSIUM 50 MG TAB PO SCH (09:41)
[2021-06-02] MEDS ORDERED: FUROSEMIDE 40 MG/4 ML VIAL IV ONE (14:53)
--- NOTE | 2021-06-02 14:53 | Hospitalist Progress Note ---
Date of Service June 02, 2021 Assessment & Plan (1) Acute respiratory failure due to COVID-19: Plan: Acute respiratory failure with hypoxia Management as below Not vaccinated (2) Pneumonia due to 2019 novel coronavirus: Plan: Present on admission with worsening shortness of breath Test is positive for COVID-19 and unvaccinated CXR on admission showed multifocal airspace consolidation is consistent with the reported history of a viral pneumonia. CTA chest showed No evidence of pulmonary embolism. Groundglass and consolidative opacities and mediastinal and hilar lymphadenopathy compatible with viral pneumonia. Completed the course of remdesivir on May 23 Completed dexamethasone 10 days course Case discussed with pulmonology about to extend dexamethasone ( no official consult place). We will continue monitor Pt while off steroid if oxygen does not improve and inflammatory markers increase, will consider to restart Decadron at 10mg daily If CRP >7.5 and on high flow oxygen, may consider baricitinib therapy with steroids- CRP 5.43 on 06/01/2021 and ferritin at 963.2 Chest x-ray today showed increasing patchy infiltration bilaterally We will give another dose of intravenous Lasix today Continue to wean off oxygen slowly He has been proning himself as much as possible We will start intravenous dexamethasone 10 mg daily A little better compared with yesterday-if the condition gets worse will need to be evaluated for possible intubation We will give another dose of 40 mg IV Lasix today (3) Hypertension: Plan: BP stable (4) DVT prophylaxis: Plan: Lovenox Full Dispo-we will discharge once medically stable Last spoke to emmie Verma on the phone on 05/27/21 for about 20 minutes provided with updates and answered all her questions Admission and Anticipated Discharge Date Admission Date: May 20, 2021 Subjective 06/01/2021 The patient was seen and examined in telemetry unit and in the COVID room He has been feeling better but he still requires 35 L of oxygen at 80% FiO2 to maintain saturation Still has cough and significant weakness June 02, 2021 The patient was seen and examined in telemetry unit and in the COVID room He was not feeling good in the morning and required 100% nonrebreather But has been feeling much better during my examination Still requires 40 L at 85% FiO2 to maintain saturation Review of Systems Review of Systems: All systems reviewed and are unremarkable except as noted below Respiratory: Shortness of breath at rest and with minimal exertion Neurologic: Generalized weakness Physical Exam Physical Exam: Lying in bed comfortably and in prone position Constitutional: well developed, well nourished, + ill appearing and average body habitus Eyes: PERRL, conjunctivae normal, anicteric sclerae ENMT: external ear and nose normal, oropharynx normal Neck: trachea midline, no thyromegaly Respiratory: + respiratory distress (Minimal respiratory distress at rest) Auscultation: + diminished lung sounds and + crackles (Bilateral crackles); no wheezes Cardiovascular: Rate/Rhythm: regular rate and regular rhythm; not tachycardic Heart Sounds: normal S1 and normal S2; no murmur Extremities: no edema Gastrointestinal (Abdomen): Inspection/Auscultation: normal bowel sounds; abdomen not distended Percussion/Palpation: abdomen soft; abdomen nontender Musculoskeletal: No acute arthritis in any joint Neurologic: Alert, awake and oriented x3. No focal sensory or motor deficit appreciated Lymphatic: no cervical or axillary lymphadenopathy Results & Data Results & Data ([facility]) Vital Signs (Past 12 Hours) Vital Signs Temp Pulse Pulse Pulse Resp BP Pulse Ox 06/02/21 11:11 85 18 94 06/02/21 10:56 36.9 C 87 18 134/76 95 06/02/21 09:43 111/65 06/02/21 08:46 69 20 92 06/02/21 08:00 74 06/02/21 06:54 36.4 C L 71 21 98/65 L 90 06/02/21 05:40 24 87 L 06/02/21 04:10 37.0 C 67 23 94/53 L 90 06/02/21 03:30 58 L 20 89 L Laboratory Results Short CBC 06/02/21 Range/Units 06:44 WBC 6.21 (4.8-10.8) K/uL Hgb 14.4 (14.0-18.0) g/dL Hct 42.5 (42-52) % Plt Count 320 (130-400) K/uL BMP 06/02/21 06:44 Sodium 133 L Potassium 4.9 Chloride 100 Carbon Dioxide 26 BUN 24 H Creatinine 0.83 Glucose 134 H Calcium 8.7 Medications Administered Current Inpatient Medications Acetaminophen (Acetaminophen 325 Mg Tab) 650 mg PO Q4H PRN PRN Reason: Pain or Fever Stop: 06/19/21 02:27 Last Admin: 05/31/21 08:13 Dose: 650 mg Documented by: Albuterol (Albuterol Hfa 8 Gm Inhaler) 2 puffs INH Q4H PRN PRN Reason: Shortness Of Breath Or Wheezin Stop: 06/19/21 02:27 Last Admin: 05/21/21 05:17 Dose: 2 puffs Documented by: Bisacodyl (Bisacodyl 5 Mg Tabec) 5 mg PO DAILY PRN PRN Reason: Constipation Stop: 06/28/21 23:30 Enoxaparin Sodium (Enoxaparin Inj 40 Mg/0.4 Ml Syr) 40 mg SQ Q12H [facility] Stop: 06/21/21 20:59 Last Admin: 06/02/21 09:35 Dose: 40 mg Documented by: Fluticasone Furoate (Fluticasone Furoate 100mcg 14 Puffs/Inhaler) 1 puffs INH DAILY [facility] Stop: 06/19/21 08:59 Last Admin: 06/02/21 09:35 Dose: 1 puffs Documented by: Guaifenesin (Guaifenesin 600 Mg Tabcr) 600 mg PO Q12 [facility] Stop: 06/20/21 08:59 Last Admin: 06/02/21 09:33 Dose: 600 mg Documented by: Dexamethasone 10 mg/ Syringe 2.5 mls @ 1 mls/min IV DAILY@0900 [facility] Stop: 07/01/21 14:29 Last Admin: 06/02/21 09:35 Dose: 1 mls/min Documented by: Lactobacillus Acidoph/Casei/Rhamnos (Advanced Probiotic 1250 Mg Capsule) 2 cap PO DAILY [facility] Stop: 06/20/21 16:14 Last Admin: 06/02/21 09:34 Dose: 2 cap Documented by: Losartan Potassium (Losartan Potassium 50 Mg Tab) 50 mg PO DAILY [facility] Stop: 06/19/21 08:59 Last Admin: 06/02/21 09:41 Dose: 50 mg Documented by: Melatonin (Melatonin 3 Mg Tab) 3 mg PO HS PRN PRN Reason: Sleep Stop: 06/22/21 00:13 Menthol (Cough Drop (Sugar Free) Avinash 24 Avinash/1 Box) 1 avinash BUCCAL Q2H PRN PRN Reason: Sore Throat Stop: 06/21/21 11:52 Nitroglycerin (Nitroglycerin Sl 0.4 Mg/Tab Tab) 0.4 mg SL UD PRN PRN Reason: Chest Pain Stop: 06/19/21 02:27 Ondansetron HCl (Ondansetron Inj 2 Mg/Ml 2 Ml Vial) 4 mg IV Q6H PRN PRN Reason: Nausea Stop: 06/19/21 02:27 Oxymetazoline HCl (Oxymetazoline 0.05% 30 Ml Btl) 1 sprays NA DAILY PRN PRN Reason: Nasal Congestion Stop: 06/04/21 08:25 Phenazopyridine HCl (Phenazopyridine Hcl 100 Mg Tab) 100 mg PO TID PRN PRN Reason: Bladder pain Stop: 06/26/21 00:55 Last Admin: 05/27/21 09:04 Dose: 100 mg Documented by: Phenol (Chloraseptic 1.4% Soln 180 Ml Btl) 2 sprays MT Q4 PRN PRN Reason: Sore Throat Stop: 06/21/21 07:24 Last Admin: 05/25/21 08:18 Dose: 2 sprays Documented by: Sodium Chloride (Sodium Chloride 0.65% Na Soln 45 Ml ([place])) 2 sprays NA TID PRN PRN Reason: Nasal Congestion Stop: 06/25/21 05:26 Last Admin: 05/27/21 01:45 Dose: 2 sprays Documented by:
[2021-06-03 07:52] LABS: BUN Creatinine Ratio 34.6 (10-20); Calcium 8.6 mg/dl (8.5-10.1); Creatinine Clr Calc Pharmacy 95.5 ml/min; Est GFR (African American) 107.3 ml/min; Est GFR (Non-African American) 92.6 ml/min; Potassium 4.5 mmol/L (3.5-5.1)
[2021-06-03] MEDS: dexAMETHasone 10 MG in SYRINGE 0 ML IV SCH (08:25)
[2021-06-03] MEDS: FLUTICASONE FUROATE 100MCG 14 PUFFS/INHALER INH SCH (08:26)
[2021-06-03] MEDS: ADVANCED PROBIOTIC 1250 MG CAPSULE PO SCH (08:26)
[2021-06-03] MEDS: ENOXAPARIN INJ 40 MG/0.4 ML SYR SQ SCH ×2 (08:26→21:30)
[2021-06-03] MEDS: guaiFENesin 600 MG TABCR PO SCH ×2 (08:26→21:30)
[2021-06-03] MEDS: LOSARTAN POTASSIUM 50 MG TAB PO SCH (08:27)
[2021-06-03] MEDS ORDERED: FUROSEMIDE 40 MG/4 ML VIAL IV ONE (14:16)
--- NOTE | 2021-06-03 14:20 | Hospitalist Progress Note ---
Date of Service June 03, 2021 Assessment & Plan (1) Acute respiratory failure due to COVID-19: Plan: Acute respiratory failure with hypoxia Management as below Not vaccinated (2) Pneumonia due to 2019 novel coronavirus: Plan: Present on admission with worsening shortness of breath Test is positive for COVID-19 and unvaccinated CXR on admission showed multifocal airspace consolidation is consistent with the reported history of a viral pneumonia. CTA chest showed No evidence of pulmonary embolism. Groundglass and consolidative opacities and mediastinal and hilar lymphadenopathy compatible with viral pneumonia. Completed the course of remdesivir on May 23 Completed dexamethasone 10 days course Case discussed with pulmonology about to extend dexamethasone ( no official consult place). We will continue monitor Pt while off steroid if oxygen does not improve and inflammatory markers increase, will consider to restart Decadron at 10mg daily If CRP >7.5 and on high flow oxygen, may consider baricitinib therapy with steroids- CRP 5.43 on 06/01/2021 and ferritin at 963.2 Chest x-ray today showed increasing patchy infiltration bilaterally We will give another dose of intravenous Lasix today Continue to wean off oxygen slowly He has been proning himself as much as possible We will start intravenous dexamethasone 10 mg daily Complains to have more symptoms in the morning then throughout the whole days Feels a little better compared to the other days We will continue another dose of Lasix for today-has been negative balance so far (3) Hypertension: Plan: BP stable but on the lower side (4) DVT prophylaxis: Plan: Lovenox Full Dispo-we will discharge once medically stable Last spoke to emmie Verma on the phone on 05/27/21 for about 20 minutes provided with updates and answered all her questions Admission and Anticipated Discharge Date Admission Date: May 20, 2021 Subjective 06/01/2021 The patient was seen and examined in telemetry unit and in the COVID room He has been feeling better but he still requires 35 L of oxygen at 80% FiO2 to maintain saturation Still has cough and significant weakness June 02, 2021 The patient was seen and examined in telemetry unit and in the COVID room He was not feeling good in the morning and required 100% nonrebreather But has been feeling much better during my examination Still requires 40 L at 85% FiO2 to maintain saturation 06/03/2021 The patient was seen and examined in telemetry unit and in the COVID room He has been feeling better during the day but in the morning his condition gets worse and requires more oxygen He feels a little better today compared to the other days Has cough denies any chest pain and/or Still requiring 35 to 40 L with 80% FiO2 to maintain saturation Review of Systems Review of Systems: All systems reviewed and are unremarkable except as noted below Respiratory: Shortness of breath at rest and with minimal exertion Neurologic: Generalized weakness Physical Exam Physical Exam: Sitting on a chair with minimal distress but very anxious Constitutional: well developed, well nourished, + ill appearing and average body habitus Eyes: PERRL, conjunctivae normal, anicteric sclerae ENMT: external ear and nose normal, oropharynx normal Neck: trachea midline, no thyromegaly Respiratory: + respiratory distress (Minimal respiratory distress at rest) Auscultation: + diminished lung sounds and + crackles (Bilateral crackles); no wheezes Cardiovascular: Rate/Rhythm: regular rate and regular rhythm; not tachycardic Heart Sounds: normal S1 and normal S2; no murmur Extremities: no edema Gastrointestinal (Abdomen): Inspection/Auscultation: normal bowel sounds; abdomen not distended Percussion/Palpation: abdomen soft; abdomen nontender Musculoskeletal: No acute arthritis involving any joint Neurologic: Alert, awake and oriented x3 Lymphatic: no cervical or axillary lymphadenopathy Results & Data Results & Data ([facility]) Vital Signs (Past 12 Hours) Vital Signs Temp Pulse Pulse Pulse Resp BP BP 06/03/21 11:15 36.7 C 99 H 24 102/59 L 06/03/21 10:54 96 H 18 06/03/21 08:17 65 18 06/03/21 07:51 36.6 C 57 L 18 115/73 06/03/21 07:20 56 L 06/03/21 03:40 36.7 C 60 18 111/70 Pulse Ox 06/03/21 11:15 96 06/03/21 10:54 95 06/03/21 08:17 94 06/03/21 07:51 90 06/03/21 07:20 06/03/21 03:40 91 Laboratory Results BMP 06/03/21 06:38 Sodium 132 L Potassium 4.5 Chloride 102 Carbon Dioxide 25 BUN 28 H Creatinine 0.81 Glucose 102 H Calcium 8.6 Medications Administered Current Inpatient Medications Acetaminophen (Acetaminophen 325 Mg Tab) 650 mg PO Q4H PRN PRN Reason: Pain or Fever Stop: 06/19/21 02:27 Last Admin: 05/31/21 08:13 Dose: 650 mg Documented by: Albuterol (Albuterol Hfa 8 Gm Inhaler) 2 puffs INH Q4H PRN PRN Reason: Shortness Of Breath Or Wheezin Stop: 06/19/21 02:27 Last Admin: 05/21/21 05:17 Dose: 2 puffs Documented by: Bisacodyl (Bisacodyl 5 Mg Tabec) 5 mg PO DAILY PRN PRN Reason: Constipation Stop: 06/28/21 23:30 Enoxaparin Sodium (Enoxaparin Inj 40 Mg/0.4 Ml Syr) 40 mg SQ Q12H [facility] Stop: 06/21/21 20:59 Last Admin: 06/03/21 08:26 Dose: 40 mg Documented by: Fluticasone Furoate (Fluticasone Furoate 100mcg 14 Puffs/Inhaler) 1 puffs INH DAILY [facility] Stop: 06/19/21 08:59 Last Admin: 06/03/21 08:26 Dose: 1 puffs Documented by: Guaifenesin (Guaifenesin 600 Mg Tabcr) 600 mg PO Q12 [facility] Stop: 06/20/21 08:59 Last Admin: 06/03/21 08:26 Dose: 600 mg Documented by: Dexamethasone 10 mg/ Syringe 2.5 mls @ 1 mls/min IV DAILY@0900 [facility] Stop: 07/01/21 14:29 Last Admin: 06/03/21 08:25 Dose: 1 mls/min Documented by: Lactobacillus Acidoph/Casei/Rhamnos (Advanced Probiotic 1250 Mg Capsule) 2 cap PO DAILY [facility] Stop: 06/20/21 16:14 Last Admin: 06/03/21 08:26 Dose: 2 cap Documented by: Losartan Potassium (Losartan Potassium 50 Mg Tab) 50 mg PO DAILY [facility] Stop: 06/19/21 08:59 Last Admin: 06/03/21 08:27 Dose: 50 mg Documented by: Melatonin (Melatonin 3 Mg Tab) 3 mg PO HS PRN PRN Reason: Sleep Stop: 06/22/21 00:13 Menthol (Cough Drop (Sugar Free) Avinash 24 Avinash/1 Box) 1 avinash BUCCAL Q2H PRN PRN Reason: Sore Throat Stop: 06/21/21 11:52 Nitroglycerin (Nitroglycerin Sl 0.4 Mg/Tab Tab) 0.4 mg SL UD PRN PRN Reason: Chest Pain Stop: 06/19/21 02:27 Ondansetron HCl (Ondansetron Inj 2 Mg/Ml 2 Ml Vial) 4 mg IV Q6H PRN PRN Reason: Nausea Stop: 06/19/21 02:27 Oxymetazoline HCl (Oxymetazoline 0.05% 30 Ml Btl) 1 sprays NA DAILY PRN PRN Reason: Nasal Congestion Stop: 06/04/21 08:25 Phenazopyridine HCl (Phenazopyridine Hcl 100 Mg Tab) 100 mg PO TID PRN PRN Reason: Bladder pain Stop: 06/26/21 00:55 Last Admin: 05/27/21 09:04 Dose: 100 mg Documented by: Phenol (Chloraseptic 1.4% Soln 180 Ml Btl) 2 sprays MT Q4 PRN PRN Reason: Sore Throat Stop: 06/21/21 07:24 Last Admin: 05/25/21 08:18 Dose: 2 sprays Documented by: Sodium Chloride (Sodium Chloride 0.65% Na Soln 45 Ml ([place])) 2 sprays NA TID PRN PRN Reason: Nasal Congestion Stop: 06/25/21 05:26 Last Admin: 05/27/21 01:45 Dose: 2 sprays Documented by:
[2021-06-04 08:26] LABS: BUN Creatinine Ratio 36.1 (10-20); C Reactive Protein 0.69 mg/dl (0-0.5); Calcium 8.6 mg/dl (8.5-10.1); Creatinine Clr Calc Pharmacy 93.3 ml/min; Est GFR (African American) 106.3 ml/min; Est GFR (Non-African American) 91.7 ml/min; Potassium 4.4 mmol/L (3.5-5.1)
[2021-06-04] MEDS: dexAMETHasone 10 MG in SYRINGE 0 ML IV SCH (08:46)
[2021-06-04] MEDS: FLUTICASONE FUROATE 100MCG 14 PUFFS/INHALER INH SCH (08:46)
[2021-06-04] MEDS: ENOXAPARIN INJ 40 MG/0.4 ML SYR SQ SCH ×2 (08:46→20:26)
[2021-06-04] MEDS: ADVANCED PROBIOTIC 1250 MG CAPSULE PO SCH (08:47)
[2021-06-04] MEDS: LOSARTAN POTASSIUM 50 MG TAB PO SCH (08:47)
[2021-06-04] MEDS: guaiFENesin 600 MG TABCR PO SCH ×2 (08:48→20:27)
[2021-06-04] MEDS ORDERED: FUROSEMIDE 40 MG/4 ML VIAL IV ONE (13:46)
--- NOTE | 2021-06-04 13:53 | Hospitalist Progress Note ---
Date of Service June 04, 2021 Assessment & Plan (1) Acute respiratory failure due to COVID-19: Plan: Acute respiratory failure with hypoxia Management as below Not vaccinated (2) Pneumonia due to 2019 novel coronavirus: Plan: Present on admission with worsening shortness of breath Test is positive for COVID-19 and unvaccinated CXR on admission showed multifocal airspace consolidation is consistent with the reported history of a viral pneumonia. CTA chest showed No evidence of pulmonary embolism. Groundglass and consolidative opacities and mediastinal and hilar lymphadenopathy compatible with viral pneumonia. Completed the course of remdesivir on May 23 Completed dexamethasone 10 days course Case discussed with pulmonology about to extend dexamethasone ( no official consult place). We will continue monitor Pt while off steroid if oxygen does not improve and inflammatory markers increase, will consider to restart Decadron at 10mg daily If CRP >7.5 and on high flow oxygen, may consider baricitinib therapy with steroids- CRP 5.43 on 06/01/2021 and ferritin at 963.2 Chest x-ray today showed increasing patchy infiltration bilaterally We will give another dose of intravenous Lasix today Continue to wean off oxygen slowly He has been proning himself as much as possible We will start intravenous dexamethasone 10 mg daily Complains to have more symptoms in the morning then throughout the whole days Feels a little better compared to the other days We will continue another dose of Lasix for today-has been negative balance so far We will try trial of CPAP tonight to see if that helps morning worsening the situation We will be giving another dose of Lasix today His CRP is way down (3) Hypertension: Plan: BP stable but on the lower side (4) DVT prophylaxis: Plan: Lovenox Full Dispo-we will discharge once medically stable Last spoke to emmie Verma on the phone on 05/27/21 for about 20 minutes provided with updates and answered all her questions Admission and Anticipated Discharge Date Admission Date: May 20, 2021 Subjective 06/01/2021 The patient was seen and examined in telemetry unit and in the COVID room He has been feeling better but he still requires 35 L of oxygen at 80% FiO2 to maintain saturation Still has cough and significant weakness June 02, 2021 The patient was seen and examined in telemetry unit and in the COVID room He was not feeling good in the morning and required 100% nonrebreather But has been feeling much better during my examination Still requires 40 L at 85% FiO2 to maintain saturation 06/03/2021 The patient was seen and examined in telemetry unit and in the COVID room He has been feeling better during the day but in the morning his condition gets worse and requires more oxygen He feels a little better today compared to the other days Has cough denies any chest pain and/or Still requiring 35 to 40 L with 80% FiO2 to maintain saturation 06/04/2021 The patient was seen and examined in telemetry unit and in the COVID room He has been feeling much better but his condition gets worse in the morning after waking up Will try CPAP trial tonight He will be given another dose of Lasix today Review of Systems Review of Systems: All systems reviewed and are unremarkable except as noted below Physical Exam Constitutional: well developed, well nourished, + ill appearing and average body habitus Eyes: PERRL, conjunctivae normal, anicteric sclerae ENMT: external ear and nose normal, oropharynx normal Neck: trachea midline, no thyromegaly Respiratory: + respiratory distress (Minimal respiratory distress at rest) Auscultation: + diminished lung sounds and + crackles (Bilateral crackles); no wheezes Cardiovascular: Rate/Rhythm: regular rate and regular rhythm; not tachycardic Heart Sounds: normal S1 and normal S2; no murmur Extremities: no edema Gastrointestinal (Abdomen): Inspection/Auscultation: normal bowel sounds; abdomen not distended Percussion/Palpation: abdomen soft; abdomen nontender Musculoskeletal: No acute arthritis in any joint Neurologic: Alert, awake and oriented x3 Lymphatic: no cervical or axillary lymphadenopathy Results & Data Results & Data ([facility]) Vital Signs (Past 12 Hours) Vital Signs Temp Pulse Pulse Pulse Resp BP BP 06/04/21 11:35 74 19 06/04/21 11:02 37.0 C 91 H 34 H 98/50 L 06/04/21 10:24 55 L 06/04/21 07:40 19 06/04/21 07:19 36.8 C 58 L 19 116/63 06/04/21 03:13 50 L 18 06/04/21 03:00 36.6 C 58 L 22 104/50 L Pulse Ox 06/04/21 11:35 94 06/04/21 11:02 91 06/04/21 10:24 06/04/21 07:40 92 06/04/21 07:19 92 06/04/21 03:13 91 06/04/21 03:00 89 L Laboratory Results BMP 06/04/21 07:41 Sodium 133 L Potassium 4.4 Chloride 102 Carbon Dioxide 26 BUN 30 H Creatinine 0.83 Glucose 91 Calcium 8.6 Medications Administered Current Inpatient Medications Acetaminophen (Acetaminophen 325 Mg Tab) 650 mg PO Q4H PRN PRN Reason: Pain or Fever Stop: 06/19/21 02:27 Last Admin: 05/31/21 08:13 Dose: 650 mg Documented by: Albuterol (Albuterol Hfa 8 Gm Inhaler) 2 puffs INH Q4H PRN PRN Reason: Shortness Of Breath Or Wheezin Stop: 06/19/21 02:27 Last Admin: 05/21/21 05:17 Dose: 2 puffs Documented by: Bisacodyl (Bisacodyl 5 Mg Tabec) 5 mg PO DAILY PRN PRN Reason: Constipation Stop: 06/28/21 23:30 Enoxaparin Sodium (Enoxaparin Inj 40 Mg/0.4 Ml Syr) [address] [facility] Stop: 06/21/21 20:59 Last Admin: 06/04/21 08:46 Dose: 40 mg Documented by: Fluticasone Furoate (Fluticasone Furoate 100mcg 14 Puffs/Inhaler) [address] [facility] Stop: 06/19/21 08:59 Last Admin: 06/04/21 08:46 Dose: 1 puffs Documented by: Furosemide (Furosemide 40 Mg/4 Ml Vial) 40 mg IV ONE ONE Stop: 06/04/21 13:47 Guaifenesin (Guaifenesin 600 Mg Tabcr) [address] [facility] Stop: 06/20/21 08:59 Last Admin: 06/04/21 08:48 Dose: 600 mg Documented by: Dexamethasone 10 mg/ Syringe 2.5 mls @ 1 mls/min IV DAILY@0900 [facility] Stop: 07/01/21 14:29 Last Admin: 06/04/21 08:46 Dose: 1 mls/min Documented by: Lactobacillus Acidoph/Casei/Rhamnos (Advanced Probiotic 1250 Mg Capsule) [address] [facility] Stop: 06/20/21 16:14 Last Admin: 06/04/21 08:47 Dose: 2 cap Documented by: Losartan Potassium (Losartan Potassium 50 Mg Tab) 50 mg PO DAILY [facility] Stop: 06/19/21 08:59 Last Admin: 06/04/21 08:47 Dose: 50 mg Documented by: Melatonin (Melatonin 3 Mg Tab) 3 mg PO HS PRN PRN Reason: Sleep Stop: 06/22/21 00:13 Menthol (Cough Drop (Sugar Free) Avinash 24 Avinash/1 Box) 1 avinash BUCCAL Q2H PRN PRN Reason: Sore Throat Stop: 06/21/21 11:52 Nitroglycerin (Nitroglycerin Sl 0.4 Mg/Tab Tab) 0.4 mg SL UD PRN PRN Reason: Chest Pain Stop: 06/19/21 02:27 Ondansetron HCl (Ondansetron Inj 2 Mg/Ml 2 Ml Vial) 4 mg IV Q6H PRN PRN Reason: Nausea Stop: 06/19/21 02:27 Phenazopyridine HCl (Phenazopyridine Hcl 100 Mg Tab) 100 mg PO TID PRN PRN Reason: Bladder pain Stop: 06/26/21 00:55 Last Admin: 05/27/21 09:04 Dose: 100 mg Documented by: Phenol (Chloraseptic 1.4% Soln 180 Ml Btl) 2 sprays MT Q4 PRN PRN Reason: Sore Throat Stop: 06/21/21 07:24 Last Admin: 05/25/21 08:18 Dose: 2 sprays Documented by: Polyethylene Glycol (Polyethylene (Miralax) 17 Gm Pack) 17 gm PO DAILY PRN PRN Reason: Constipation Stop: 07/04/21 13:43 Sodium Chloride (Sodium Chloride 0.65% Na Soln 45 Ml ([place])) 2 sprays NA TID PRN PRN Reason: Nasal Congestion Stop: 06/25/21 05:26 Last Admin: 05/27/21 01:45 Dose: 2 sprays Documented by:
[2021-06-04] MEDS: POLYETHYLENE (MIRALAX) 17 GM PACK PO PRN (15:17)
[2021-06-04] MEDS: ACETAMINOPHEN 325 MG TAB PO PRN (23:11)
[2021-06-05 07:12] LABS: BUN Creatinine Ratio 39.8 (10-20); Calcium 8.4 mg/dl (8.5-10.1); Creatinine Clr Calc Pharmacy 92.5 ml/min; Est GFR (African American) 106.3 ml/min; Est GFR (Non-African American) 91.7 ml/min; Potassium 4.5 mmol/L (3.5-5.1)
[2021-06-05] MEDS: dexAMETHasone 10 MG in SYRINGE 0 ML IV SCH (09:13)
[2021-06-05] MEDS: ENOXAPARIN INJ 40 MG/0.4 ML SYR SQ SCH ×2 (09:14→21:20)
[2021-06-05] MEDS: guaiFENesin 600 MG TABCR PO SCH ×2 (09:14→21:20)
[2021-06-05] MEDS: FLUTICASONE FUROATE 100MCG 14 PUFFS/INHALER INH SCH (09:15)
[2021-06-05] MEDS: ADVANCED PROBIOTIC 1250 MG CAPSULE PO SCH (09:15)
[2021-06-05] MEDS: LOSARTAN POTASSIUM 50 MG TAB PO SCH (09:16)
[2021-06-05] MEDS: SODIUM CHLORIDE 1 GM TABLET PO SCH (10:40)
--- NOTE | 2021-06-05 13:11 | Hospitalist Progress Note ---
Date of Service June 05, 2021 Assessment & Plan (1) Acute respiratory failure due to COVID-19: Plan: Acute respiratory failure with hypoxia Management as below Not vaccinated (2) Pneumonia due to 2019 novel coronavirus: Plan: Present on admission with worsening shortness of breath Test is positive for COVID-19 and unvaccinated CXR on admission showed multifocal airspace consolidation is consistent with the reported history of a viral pneumonia. CTA chest showed No evidence of pulmonary embolism. Groundglass and consolidative opacities and mediastinal and hilar lymphadenopathy compatible with viral pneumonia. Completed the course of remdesivir on May 23 Completed dexamethasone 10 days course Case discussed with pulmonology about to extend dexamethasone ( no official consult place). We will continue monitor Pt while off steroid if oxygen does not improve and inflammatory markers increase, will consider to restart Decadron at 10mg daily If CRP >7.5 and on high flow oxygen, may consider baricitinib therapy with steroids- CRP 5.43 on 06/01/2021 and ferritin at 963.2 Chest x-ray today showed increasing patchy infiltration bilaterally We will give another dose of intravenous Lasix today Continue to wean off oxygen slowly He has been proning himself as much as possible We will start intravenous dexamethasone 10 mg daily Complains to have more symptoms in the morning then throughout the whole days Feels a little better compared to the other days We will continue another dose of Lasix for today-has been negative balance so far We will try trial of CPAP tonight to see if that helps morning worsening the situation We will be giving another dose of Lasix today His CRP is way down Tolerated CPAP last night with sound sleep Still requiring 35 L of oxygen in the morning to maintain saturation. He has been proning and doing everything possible from his side to get better Has hyponatremia Sodium 130 We will give sodium tablet 1 g today and will not give any Lasix as of today as he is running negative balance (3) Hypertension: Plan: BP stable but on the lower side (4) DVT prophylaxis: Plan: Lovenox Full Dispo-we will discharge once medically stable Last spoke to emmie Verma on the phone on 05/27/21 for about 20 minutes provided with updates and answered all her questions Admission and Anticipated Discharge Date Admission Date: May 20, 2021 Subjective 06/01/2021 The patient was seen and examined in telemetry unit and in the COVID room He has been feeling better but he still requires 35 L of oxygen at 80% FiO2 to maintain saturation Still has cough and significant weakness June 02, 2021 The patient was seen and examined in telemetry unit and in the COVID room He was not feeling good in the morning and required 100% nonrebreather But has been feeling much better during my examination Still requires 40 L at 85% FiO2 to maintain saturation 06/03/2021 The patient was seen and examined in telemetry unit and in the COVID room He has been feeling better during the day but in the morning his condition gets worse and requires more oxygen He feels a little better today compared to the other days Has cough denies any chest pain and/or Still requiring 35 to 40 L with 80% FiO2 to maintain saturation 06/04/2021 The patient was seen and examined in telemetry unit and in the COVID room He has been feeling much better but his condition gets worse in the morning after waking up Will try CPAP trial tonight He will be given another dose of Lasix today 06/05/2021 The patient was seen and examined in telemetry unit and in the COVID room He tolerated CPAP very well last night and has had a good night sleep Again the morning was rough and required high flow oxygen Has been proning now Review of Systems Review of Systems: All systems reviewed and are unremarkable except as noted below Respiratory: Mild to moderate shortness of breath at rest Physical Exam Constitutional: well developed, well nourished, + ill appearing and average body habitus Eyes: PERRL, conjunctivae normal, anicteric sclerae ENMT: external ear and nose normal, oropharynx normal Neck: trachea midline, no thyromegaly Respiratory: + respiratory distress (Minimal respiratory distress at rest) Auscultation: + diminished lung sounds and + crackles (Bilateral crackles); no wheezes Cardiovascular: Rate/Rhythm: regular rate and regular rhythm; not tachycardic Heart Sounds: normal S1 and normal S2; no murmur Extremities: no edema Gastrointestinal (Abdomen): Inspection/Auscultation: normal bowel sounds; abdomen not distended Percussion/Palpation: abdomen soft; abdomen nontender Musculoskeletal: No acute arthritis in any joint Neurologic: Alert, awake and oriented x3. No focal sensory or no motor deficit appreciated Lymphatic: no cervical or axillary lymphadenopathy Results & Data Results & Data ([facility]) Vital Signs (Past 12 Hours) Vital Signs Temp Pulse Pulse Resp BP BP Pulse Ox 06/05/21 11:15 36.5 C 90 18 111/68 93 06/05/21 09:15 71 18 89 L 06/05/21 04:45 36.5 C 57 L 20 104/51 L 93 06/05/21 02:55 50 L 18 94 Laboratory Results [facility] 06/05/21 05:26 Sodium 130 L Potassium 4.5 Chloride 101 Carbon Dioxide 28 BUN 33 H Creatinine 0.83 Glucose 93 Calcium 8.4 L Medications Administered Current Inpatient Medications Acetaminophen (Acetaminophen 325 Mg Tab) 650 mg PO Q4H PRN PRN Reason: Pain or Fever Stop: 06/19/21 02:27 Last Admin: 06/04/21 23:11 Dose: 650 mg Documented by: Albuterol (Albuterol Hfa 8 Gm Inhaler) 2 puffs INH Q4H PRN PRN Reason: Shortness Of Breath Or Wheezin Stop: 06/19/21 02:27 Last Admin: 05/21/21 05:17 Dose: 2 puffs Documented by: Bisacodyl (Bisacodyl 5 Mg Tabec) 5 mg PO DAILY PRN PRN Reason: Constipation Stop: 06/28/21 23:30 Enoxaparin Sodium (Enoxaparin Inj 40 Mg/0.4 Ml Syr) 40 mg SQ Q12H [facility] Stop: 06/21/21 20:59 Last Admin: 06/05/21 09:14 Dose: 40 mg Documented by: Fluticasone Furoate (Fluticasone Furoate 100mcg 14 Puffs/Inhaler) 1 puffs INH DAILY [facility] Stop: 06/19/21 08:59 Last Admin: 06/05/21 09:15 Dose: 1 puffs Documented by: Guaifenesin (Guaifenesin 600 Mg Tabcr) 600 mg PO Q12 [facility] Stop: 06/20/21 08:59 Last Admin: 06/05/21 09:14 Dose: 600 mg Documented by: Dexamethasone 10 mg/ Syringe 2.5 mls @ 1 mls/min IV DAILY@0900 [facility] Stop: 07/01/21 14:29 Last Admin: 06/05/21 09:13 Dose: 1 mls/min Documented by: Lactobacillus Acidoph/Casei/Rhamnos (Advanced Probiotic 1250 Mg Capsule) 2 cap PO DAILY [facility] Stop: 06/20/21 16:14 Last Admin: 06/05/21 09:15 Dose: 2 cap Documented by: Losartan Potassium (Losartan Potassium 50 Mg Tab) 50 mg PO DAILY [facility] Stop: 06/19/21 08:59 Last Admin: 06/05/21 09:16 Dose: 50 mg Documented by: Melatonin (Melatonin 3 Mg Tab) 3 mg PO HS PRN PRN Reason: Sleep Stop: 06/22/21 00:13 Menthol (Cough Drop (Sugar Free) Avinash 24 Avinash/1 Box) 1 avinash BUCCAL Q2H PRN PRN Reason: Sore Throat Stop: 06/21/21 11:52 Nitroglycerin (Nitroglycerin Sl 0.4 Mg/Tab Tab) 0.4 mg SL UD PRN PRN Reason: Chest Pain Stop: 06/19/21 02:27 Ondansetron HCl (Ondansetron Inj 2 Mg/Ml 2 Ml Vial) 4 mg IV Q6H PRN PRN Reason: Nausea Stop: 06/19/21 02:27 Phenazopyridine HCl (Phenazopyridine Hcl 100 Mg Tab) 100 mg PO TID PRN PRN Reason: Bladder pain Stop: 06/26/21 00:55 Last Admin: 05/27/21 09:04 Dose: 100 mg Documented by: Phenol (Chloraseptic 1.4% Soln 180 Ml Btl) 2 sprays MT Q4 PRN PRN Reason: Sore Throat Stop: 06/21/21 07:24 Last Admin: 05/25/21 08:18 Dose: 2 sprays Documented by: Polyethylene Glycol (Polyethylene (Miralax) 17 Gm Pack) 17 gm PO DAILY PRN PRN Reason: Constipation Stop: 07/04/21 13:43 Last Admin: 06/04/21 15:17 Dose: 17 gm Documented by: Sodium Chloride (Sodium Chloride 0.65% Na Soln 45 Ml ([place])) 2 sprays NA TID PRN PRN Reason: Nasal Congestion Stop: 06/25/21 05:26 Last Admin: 05/27/21 01:45 Dose: 2 sprays Documented by: Sodium Chloride (Sodium Chloride 1 Gm Tablet) 1 gm PO DAILY [facility] Stop: 07/05/21 08:59 Last Admin: 06/05/21 10:40 Dose: 1 gm Documented by:
[2021-06-06] MEDS: ENOXAPARIN INJ 40 MG/0.4 ML SYR SQ SCH ×2 (08:20→19:34)
[2021-06-06] MEDS: FLUTICASONE FUROATE 100MCG 14 PUFFS/INHALER INH SCH (08:20)
[2021-06-06] MEDS: dexAMETHasone 10 MG in SYRINGE 0 ML IV SCH (08:20)
[2021-06-06] MEDS: LOSARTAN POTASSIUM 50 MG TAB PO SCH (08:21)
[2021-06-06] MEDS: guaiFENesin 600 MG TABCR PO SCH ×2 (08:21→19:34)
[2021-06-06] MEDS: ADVANCED PROBIOTIC 1250 MG CAPSULE PO SCH (08:21)
[2021-06-06] MEDS: SODIUM CHLORIDE 1 GM TABLET PO SCH (08:22)
[2021-06-06] MEDS ORDERED: bisacodyL 10 MG SUPP PR STA (10:15)
[2021-06-06] MEDS: POLYETHYLENE (MIRALAX) 17 GM PACK PO PRN (10:28)
--- NOTE | 2021-06-06 13:56 | Hospitalist Progress Note ---
Date of Service June 06, 2021 Assessment & Plan (1) Acute respiratory failure due to COVID-19: Plan: Acute respiratory failure with hypoxia Management as below Not vaccinated (2) Pneumonia due to 2019 novel coronavirus: Plan: Present on admission with worsening shortness of breath Test is positive for COVID-19 and unvaccinated CXR on admission showed multifocal airspace consolidation is consistent with the reported history of a viral pneumonia. CTA chest showed No evidence of pulmonary embolism. Groundglass and consolidative opacities and mediastinal and hilar lymphadenopathy compatible with viral pneumonia. Completed the course of remdesivir on May 23 Completed dexamethasone 10 days course Case discussed with pulmonology about to extend dexamethasone ( no official consult place). We will continue monitor Pt while off steroid if oxygen does not improve and inflammatory markers increase, will consider to restart Decadron at 10mg daily If CRP >7.5 and on high flow oxygen, may consider baricitinib therapy with steroids- CRP 5.43 on 06/01/2021 and ferritin at 963.2 Chest x-ray today showed increasing patchy infiltration bilaterally We will give another dose of intravenous Lasix today Continue to wean off oxygen slowly He has been proning himself as much as possible We will start intravenous dexamethasone 10 mg daily Complains to have more symptoms in the morning then throughout the whole days Feels a little better compared to the other days We will continue another dose of Lasix for today-has been negative balance so far We will try trial of CPAP tonight to see if that helps morning worsening the situation We will be giving another dose of Lasix today His CRP is way down Tolerated CPAP last night with sound sleep Clinically better with improvement of peak flow and improvement of shortness of breath at rest Will discontinue higher dose of intravenous Decadron now Has hyponatremia Sodium 130 We will give sodium tablet 1 g today and will not give any Lasix as of today as he is running negative balance We will check PRP tomorrow (3) Hypertension: Plan: BP stable but on the lower side (4) DVT prophylaxis: Plan: Lovenox Full Dispo-we will discharge once medically stable Daughter is updated Admission and Anticipated Discharge Date Admission Date: May 20, 2021 Subjective 06/01/2021 The patient was seen and examined in telemetry unit and in the COVID room He has been feeling better but he still requires 35 L of oxygen at 80% FiO2 to maintain saturation Still has cough and significant weakness June 02, 2021 The patient was seen and examined in telemetry unit and in the COVID room He was not feeling good in the morning and required 100% nonrebreather But has been feeling much better during my examination Still requires 40 L at 85% FiO2 to maintain saturation 06/03/2021 The patient was seen and examined in telemetry unit and in the COVID room He has been feeling better during the day but in the morning his condition gets worse and requires more oxygen He feels a little better today compared to the other days Has cough denies any chest pain and/or Still requiring 35 to 40 L with 80% FiO2 to maintain saturation 06/04/2021 The patient was seen and examined in telemetry unit and in the COVID room He has been feeling much better but his condition gets worse in the morning after waking up Will try CPAP trial tonight He will be given another dose of Lasix today 06/05/2021 The patient was seen and examined in telemetry unit and in the COVID room He tolerated CPAP very well last night and has had a good night sleep Again the morning was rough and required high flow oxygen Has been proning now 06/06/2021 The patient was seen and examined in telemetry unit and in the Covid room He has been feeling much better today but is still requiring 35 L with 65% flow rate to maintain saturation Patient has been tolerating CPAP at night He has been using spirometer and flutter valve regularly Review of Systems Review of Systems: All systems reviewed and are unremarkable except as noted below Respiratory: Mild to moderate shortness of breath at rest Physical Exam Constitutional: well developed, well nourished, + ill appearing and average body habitus Eyes: PERRL, conjunctivae normal, anicteric sclerae ENMT: external ear and nose normal, oropharynx normal Neck: trachea midline, no thyromegaly Respiratory: + respiratory distress (Minimal respiratory distress at rest) Auscultation: + diminished lung sounds and + crackles (Bilateral crackles); no wheezes Cardiovascular: Rate/Rhythm: regular rate and regular rhythm; not tachycardic Heart Sounds: normal S1 and normal S2; no murmur Extremities: no edema Gastrointestinal (Abdomen): Inspection/Auscultation: normal bowel sounds; abdomen not distended Percussion/Palpation: abdomen soft; abdomen nontender Musculoskeletal: No acute arthritis in any joint Neurologic: Alert, awake and oriented x3 Lymphatic: no cervical or axillary lymphadenopathy Results & Data Results & Data ([facility]) Vital Signs (Past 12 Hours) Vital Signs Temp Pulse Pulse Resp BP Pulse Ox 06/06/21 11:59 60 20 94 06/06/21 11:14 36.6 C 64 20 96/63 L 92 06/06/21 07:58 63 20 94 06/06/21 07:48 36.6 C 64 22 116/69 87 L 06/06/21 02:25 70 17 92 Medications Administered Current Inpatient Medications Acetaminophen (Acetaminophen 325 Mg Tab) 650 mg PO Q4H PRN PRN Reason: Pain or Fever Stop: 06/19/21 02:27 Last Admin: 06/04/21 23:11 Dose: 650 mg Documented by: Albuterol (Albuterol Hfa 8 Gm Inhaler) 2 puffs INH Q4H PRN PRN Reason: Shortness Of Breath Or Wheezin Stop: 06/19/21 02:27 Last Admin: 05/21/21 05:17 Dose: 2 puffs Documented by: Bisacodyl (Bisacodyl 5 Mg Tabec) 5 mg PO DAILY PRN PRN Reason: Constipation Stop: 06/28/21 23:30 Enoxaparin Sodium (Enoxaparin Inj 40 Mg/0.4 Ml Syr) 40 mg SQ Q12H [facility] Stop: 06/21/21 20:59 Last Admin: 06/06/21 08:20 Dose: 40 mg Documented by: Fluticasone Furoate (Fluticasone Furoate 100mcg 14 Puffs/Inhaler) 1 puffs INH DAILY [facility] Stop: 06/19/21 08:59 Last Admin: 06/06/21 08:20 Dose: 1 puffs Documented by: Guaifenesin (Guaifenesin 600 Mg Tabcr) 600 mg PO Q12 [facility] Stop: 06/20/21 08:59 Last Admin: 06/06/21 08:21 Dose: 600 mg Documented by: Dexamethasone 10 mg/ Syringe 2.5 mls @ 1 mls/min IV DAILY@0900 [facility] Stop: 07/01/21 14:29 Last Admin: 06/06/21 08:20 Dose: 1 mls/min Documented by: Lactobacillus Acidoph/Casei/Rhamnos (Advanced Probiotic 1250 Mg Capsule) 2 cap PO DAILY [facility] Stop: 06/20/21 16:14 Last Admin: 06/06/21 08:21 Dose: 2 cap Documented by: Losartan Potassium (Losartan Potassium 50 Mg Tab) 50 mg PO DAILY [facility] Stop: 06/19/21 08:59 Last Admin: 06/06/21 08:21 Dose: 50 mg Documented by: Melatonin (Melatonin 3 Mg Tab) 3 mg PO HS PRN PRN Reason: Sleep Stop: 06/22/21 00:13 Menthol (Cough Drop (Sugar Free) Avinash 24 Avinash/1 Box) 1 avinash BUCCAL Q2H PRN PRN Reason: Sore Throat Stop: 06/21/21 11:52 Nitroglycerin (Nitroglycerin Sl 0.4 Mg/Tab Tab) 0.4 mg SL UD PRN PRN Reason: Chest Pain Stop: 06/19/21 02:27 Ondansetron HCl (Ondansetron Inj 2 Mg/Ml 2 Ml Vial) 4 mg IV Q6H PRN PRN Reason: Nausea Stop: 06/19/21 02:27 Phenazopyridine HCl (Phenazopyridine Hcl 100 Mg Tab) 100 mg PO TID PRN PRN Reason: Bladder pain Stop: 06/26/21 00:55 Last Admin: 05/27/21 09:04 Dose: 100 mg Documented by: Phenol (Chloraseptic 1.4% Soln 180 Ml Btl) 2 sprays MT Q4 PRN PRN Reason: Sore Throat Stop: 06/21/21 07:24 Last Admin: 05/25/21 08:18 Dose: 2 sprays Documented by: Polyethylene Glycol (Polyethylene (Miralax) 17 Gm Pack) 17 gm PO DAILY PRN PRN Reason: Constipation Stop: 07/04/21 13:43 Last Admin: 06/06/21 10:28 Dose: 17 gm Documented by: Sodium Chloride (Sodium Chloride 0.65% Na Soln 45 Ml ([place])) 2 sprays NA TID PRN PRN Reason: Nasal Congestion Stop: 06/25/21 05:26 Last Admin: 05/27/21 01:45 Dose: 2 sprays Documented by: Sodium Chloride (Sodium Chloride 1 Gm Tablet) 1 gm PO DAILY [facility] Stop: 07/05/21 08:59 Last Admin: 06/06/21 08:22 Dose: 1 gm Documented by:
[2021-06-07 06:24] LABS: Eosinophils # (auto) 0.02 K/uL (0-0.5); Eosinophils % (auto) 0.3 %; Hematocrit (blood only) 38.1 % (42-52); Hemoglobin 12.8 g/dL (14.0-18.0); Immature Granulocytes # (auto) 0.03 K/uL (0.00-0.02); Immature Granulocytes % (auto) 0.5 %; Lymphocytes # (auto) 1.36 K/uL (1.2-3.4); Lymphocytes % (auto) 20.7 %; Mean Corpuscular Hgb Conc 33.6 g/dL (32-36); Mean Corpuscular Volume 89.2 fL (80-100); Mean Platelet Volume 9.4 fL (7.4-10.4); Monocytes % (auto) 9.1 %; Neutrophils # (auto) 4.56 K/uL (1.4-6.5); Neutrophils % (auto) 69.4 %; Platelet Count 240 K/uL (130-400); RDW Coefficient of Variation 13.9 % (11.5-14.5); RDW Standard Deviation 45.5 fL (36.4-46.3); Red Blood Count 4.27 M/uL (4.7-6.1); White Blood Count 6.57 K/uL (4.8-10.8)
[2021-06-07 06:54] LABS: BUN Creatinine Ratio 38.8 (10-20); Calcium 8.3 mg/dl (8.5-10.1); Creatinine Clr Calc Pharmacy 114.6 ml/min; Est GFR (Non-African American) 100.1 ml/min; Potassium 4.6 mmol/L (3.5-5.1)
[2021-06-07] MEDS: guaiFENesin 600 MG TABCR PO SCH ×2 (09:01→19:52)
[2021-06-07] MEDS: LOSARTAN POTASSIUM 50 MG TAB PO SCH (09:02)
[2021-06-07] MEDS: ADVANCED PROBIOTIC 1250 MG CAPSULE PO SCH (09:05)
[2021-06-07] MEDS: SODIUM CHLORIDE 1 GM TABLET PO SCH (09:05)
[2021-06-07] MEDS: ENOXAPARIN INJ 40 MG/0.4 ML SYR SQ SCH ×2 (09:06→19:52)
[2021-06-07] MEDS: FLUTICASONE FUROATE 100MCG 14 PUFFS/INHALER INH SCH (09:08)
--- NOTE | 2021-06-07 16:34 | Hospitalist Progress Note ---
Date of Service June 07, 2021 Assessment & Plan (1) Acute respiratory failure due to COVID-19: Plan: Acute respiratory failure with hypoxia Management as below Not vaccinated (2) Pneumonia due to 2019 novel coronavirus: Plan: Present on admission with worsening shortness of breath Test is positive for COVID-19 and unvaccinated CXR on admission showed multifocal airspace consolidation is consistent with the reported history of a viral pneumonia. CTA chest showed No evidence of pulmonary embolism. Groundglass and consolidative opacities and mediastinal and hilar lymphadenopathy compatible with viral pneumonia. Completed the course of remdesivir on May 23 Completed dexamethasone 10 days course Case discussed with pulmonology about to extend dexamethasone ( no official consult place). We will continue monitor Pt while off steroid if oxygen does not improve and inflammatory markers increase, will consider to restart Decadron at 10mg daily If CRP >7.5 and on high flow oxygen, may consider baricitinib therapy with steroids- CRP 5.43 on 06/01/2021 and ferritin at 963.2 Chest x-ray today showed increasing patchy infiltration bilaterally We will give another dose of intravenous Lasix today Continue to wean off oxygen slowly He has been proning himself as much as possible We will start intravenous dexamethasone 10 mg daily-received intravenous Decadron with increasing dose for 6 days Complains to have more symptoms in the morning then throughout the whole days Feels a little better compared to the other days We will continue another dose of Lasix for today-has been negative balance so far We will try trial of CPAP tonight to see if that helps morning worsening the situation His CRP is way down Has been tolerating CPAP at nighttime Clinically much better but he still requires 30 L at 50% FiO2 to maintain saturation He can come out of isolation as per infectious disease Has hyponatremia Sodium 130 We will give sodium tablet 1 g today and will not give any Lasix as of today as he is running negative balance We will check PRP tomorrow-sodium level is 134 as of 06/07/2021 (3) Hypertension: Plan: BP stable but on the lower side (4) DVT prophylaxis: Plan: Lovenox Full Dispo-we will discharge once medically stable Daughter is updated Admission and Anticipated Discharge Date Admission Date: May 20, 2021 Subjective 06/01/2021 The patient was seen and examined in telemetry unit and in the COVID room He has been feeling better but he still requires 35 L of oxygen at 80% FiO2 to maintain saturation Still has cough and significant weakness June 02, 2021 The patient was seen and examined in telemetry unit and in the COVID room He was not feeling good in the morning and required 100% nonrebreather But has been feeling much better during my examination Still requires 40 L at 85% FiO2 to maintain saturation 06/03/2021 The patient was seen and examined in telemetry unit and in the COVID room He has been feeling better during the day but in the morning his condition gets worse and requires more oxygen He feels a little better today compared to the other days Has cough denies any chest pain and/or Still requiring 35 to 40 L with 80% FiO2 to maintain saturation 06/04/2021 The patient was seen and examined in telemetry unit and in the COVID room He has been feeling much better but his condition gets worse in the morning after waking up Will try CPAP trial tonight He will be given another dose of Lasix today 06/05/2021 The patient was seen and examined in telemetry unit and in the COVID room He tolerated CPAP very well last night and has had a good night sleep Again the morning was rough and required high flow oxygen Has been proning now 06/06/2021 The patient was seen and examined in telemetry unit and in the Covid room He has been feeling much better today but is still requiring 35 L with 65% flow rate to maintain saturation Patient has been tolerating CPAP at night He has been using spirometer and flutter valve regularly 06/07/2021 The patient was seen and examined in telemetry unit and in the Covid room He has been feeling better but again his saturation went down in the morning and required high flow oxygen more than 30 L He feels better as the day goes by Denies any chest pain or palpitation, no abdominal pain nausea no vomiting Review of Systems Review of Systems: All systems reviewed and are unremarkable except as noted below Respiratory: Mild to moderate shortness of breath at rest Physical Exam Physical Exam: Sitting on a chair without any acute distress but very anxious Constitutional: well developed, well nourished, + ill appearing and average body habitus Eyes: PERRL, conjunctivae normal, anicteric sclerae ENMT: external ear and nose normal, oropharynx normal Neck: trachea midline, no thyromegaly Respiratory: + respiratory distress (Minimal respiratory distress at rest) Auscultation: + diminished lung sounds and + crackles (Bilateral crackles); no wheezes Cardiovascular: Rate/Rhythm: regular rate and regular rhythm; not tachycardic Heart Sounds: normal S1 and normal S2; no murmur Extremities: no edema Gastrointestinal (Abdomen): Inspection/Auscultation: normal bowel sounds; abdomen not distended Percussion/Palpation: abdomen soft; abdomen nontender Musculoskeletal: Arthritis in any joint Neurologic: Alert, awake and oriented x3 Lymphatic: no cervical or axillary lymphadenopathy Results & Data Results & Data ([facility]) Vital Signs (Past 12 Hours) Vital Signs Temp Pulse Pulse Resp BP BP Pulse Ox 06/07/21 15:15 36.9 C 79 18 93/51 L 92 06/07/21 14:15 79 20 97 06/07/21 11:24 36.5 C 66 18 90/58 L 95 06/07/21 11:04 73 20 96 06/07/21 09:10 114/70 06/07/21 08:22 86 20 06/07/21 07:37 36.5 C 72 20 97/49 L 91 Laboratory Results Short CBC 06/07/21 Range/Units 06:09 WBC 6.57 (4.8-10.8) K/uL Hgb 12.8 L (14.0-18.0) g/dL Hct 38.1 L (42-52) % Plt Count 240 (130-400) K/uL BMP 06/07/21 06:09 Sodium 134 L Potassium 4.6 Chloride 103 Carbon Dioxide 27 BUN 26 H Creatinine 0.67 Glucose 88 Calcium 8.3 L Medications Administered Current Inpatient Medications Acetaminophen (Acetaminophen 325 Mg Tab) 650 mg PO Q4H PRN PRN Reason: Pain or Fever Stop: 06/19/21 02:27 Last Admin: 06/04/21 23:11 Dose: 650 mg Documented by: Albuterol (Albuterol Hfa 8 Gm Inhaler) 2 puffs INH Q4H PRN PRN Reason: Shortness Of Breath Or Wheezin Stop: 06/19/21 02:27 Last Admin: 05/21/21 05:17 Dose: 2 puffs Documented by: Bisacodyl (Bisacodyl 5 Mg Tabec) 5 mg PO DAILY PRN PRN Reason: Constipation Stop: 06/28/21 23:30 Enoxaparin Sodium (Enoxaparin Inj 40 Mg/0.4 Ml Syr) 40 mg SQ Q12H PRINCE Stop: 06/21/21 20:59 Last Admin: 06/07/21 09:06 Dose: 40 mg Documented by: Fluticasone Furoate (Fluticasone Furoate 100mcg 14 Puffs/Inhaler) 1 puffs INH DAILY PRINCE Stop: 06/19/21 08:59 Last Admin: 06/07/21 09:08 Dose: 1 puffs Documented by: Guaifenesin (Guaifenesin 600 Mg Tabcr) 600 mg PO Q12 PRINCE Stop: 06/20/21 08:59 Last Admin: 06/07/21 09:01 Dose: 600 mg Documented by: Lactobacillus Acidoph/Casei/Rhamnos (Advanced Probiotic 1250 Mg Capsule) 2 cap PO DAILY PRINCE Stop: 06/20/21 16:14 Last Admin: 06/07/21 09:05 Dose: 2 cap Documented by: Losartan Potassium (Losartan Potassium 50 Mg Tab) 50 mg PO DAILY PRINCE Stop: 06/19/21 08:59 Last Admin: 06/07/21 09:02 Dose: 50 mg Documented by: Melatonin (Melatonin 3 Mg Tab) 3 mg PO HS PRN PRN Reason: Sleep Stop: 06/22/21 00:13 Menthol (Cough Drop (Sugar Free) Avinash 24 Avinash/1 Box) 1 avinash BUCCAL Q2H PRN PRN Reason: Sore Throat Stop: 06/21/21 11:52 Nitroglycerin (Nitroglycerin Sl 0.4 Mg/Tab Tab) 0.4 mg SL UD PRN PRN Reason: Chest Pain Stop: 06/19/21 02:27 Ondansetron HCl (Ondansetron Inj 2 Mg/Ml 2 Ml Vial) 4 mg IV Q6H PRN PRN Reason: Nausea Stop: 06/19/21 02:27 Phenazopyridine HCl (Phenazopyridine Hcl 100 Mg Tab) 100 mg PO TID PRN PRN Reason: Bladder pain Stop: 06/26/21 00:55 Last Admin: 05/27/21 09:04 Dose: 100 mg Documented by: Phenol (Chloraseptic 1.4% Soln 180 Ml Btl) 2 sprays MT Q4 PRN PRN Reason: Sore Throat Stop: 06/21/21 07:24 Last Admin: 05/25/21 08:18 Dose: 2 sprays Documented by: Polyethylene Glycol (Polyethylene (Miralax) 17 Gm Pack) 17 gm PO DAILY PRN PRN Reason: Constipation Stop: 07/04/21 13:43 Last Admin: 06/06/21 10:28 Dose: 17 gm Documented by: Sodium Chloride (Sodium Chloride 0.65% Na Soln 45 Ml ([place])) 2 sprays NA TID PRN PRN Reason: Nasal Congestion Stop: 06/25/21 05:26 Last Admin: 05/27/21 01:45 Dose: 2 sprays Documented by: Sodium Chloride (Sodium Chloride 1 Gm Tablet) 1 gm PO DAILY PRINCE Stop: 07/05/21 08:59 Last Admin: 06/07/21 09:05 Dose: 1 gm Documented by:
[2021-06-08] MEDS: ACETAMINOPHEN 325 MG TAB PO PRN (04:07)
--- NOTE | 2021-06-08 08:43 | Hospitalist Progress Note ---
Date of Service June 08, 2021 Assessment & Plan (1) Acute respiratory failure due to COVID-19: Plan: per plan below. (2) Pneumonia due to 2019 novel coronavirus: Plan: Present on admission with worsening shortness of breath Test is positive for COVID-19 and unvaccinated CTA chest showed No evidence of pulmonary embolism. Groundglass and consolidative opacities and mediastinal and hilar lymphadenopathy compatible with viral pneumonia. Completed the course of remdesivir on May 23 Completed dexamethasone 10 day course Case discussed with pulmonology about to extend dexamethasone ( no official consult place). We will continue monitor Pt while off steroid if oxygen does not improve and inflammatory markers increase, will consider to restart Decadron at 10mg daily CRP 5.43 on 06/01/2021 and ferritin at 963.2 Gave additional intravenous dexamethasone 10 mg daily-received intravenous Decadron with increasing dose for 6 days symptoms in the morning moreso than throughout the whole days Feels he is improving. started nightly CPAP which he is tolerating. He can come out of isolation as per infectious disease Cont Mucinex and pulmonary toilet with oxygen supplementation (3) Hypertension: Plan: BP stable but on the lower side, may have been from recent lasix. Losartan placed on hold. (4) Hyponatremia: Plan: Likely related to diuretics. Resolved since holding additional Lasix. (5) DVT prophylaxis: Plan: Lovenox Full Dispo-to home once hypoxia has resolved. Nohelia Castro DO [facility] Hospitalist Admission and Anticipated Discharge Date Admission Date: May 20, 2021 Subjective 66 yo M admitted with acute hypoxic respiratory failure 2/2 covid. feels well today and reports no issues other than he has some issues with oxygen desaturation in the morning when he gets up first thing He reports this has been happening the last 3 mornings when he transitions from BIPAP to hi flow and his sat will drop into the 70s wtih the need for some recovery time. He then does well throughout the rest of the day per his report. Denies SOB, chest pain, tolerating PO, denies fevers or chills. Review of Systems Review of Systems: All systems were reviewed and negative except per subjective above. Physical Exam Physical Exam: CONSTITUTIONAL: WNWD, vitals as above, generally well- appearing, NAD on BIPAP mask. Lying on right side. EYES: normal conjunctivae, no scleral icterus ENT: external ear and nose normal, NECK: trachea midline, RESPIRATORY: clear to auscultation bilaterally except for crackles on his dependent side on right base (reports he has been in this position overnight), no rales or wheezes, normal respiratory effort CARDIOVASCULAR: regular rate and rhythm, S1 and 2 heard without murmurs, gallops or rubs, no JVD, no peripheral edema CHEST: inspection of chest was normal GASTROINTESTINAL: soft, nontender, ND, no guarding MUSCULOSKELETAL: strength 5/5 throughout, head is normocephalic and atraumatic, SKIN: warm and dry, NEUROLOGIC: CN 2-12 grossly intact, no sensory deficit, normal cognition, normal speech, no tremor PSYCHIATRIC: alert cooperative and oriented to person, place and time. Results & Data Results & Data ([facility]) Vital Signs (Past 12 Hours) Vital Signs Temp Pulse Pulse Resp BP BP Pulse Ox 06/08/21 07:54 75 20 96 06/08/21 07:22 36.6 C 64 20 119/70 97 06/08/21 03:30 53 L 18 94 06/08/21 02:57 36.6 C 58 L 20 93/48 L 95 06/07/21 23:00 60 23 95 06/07/21 22:30 36.4 C L 68 20 96/63 L 96 Medications Administered Current Inpatient Medications Acetaminophen (Acetaminophen 325 Mg Tab) 650 mg PO Q4H PRN PRN Reason: Pain or Fever Stop: 06/19/21 02:27 Last Admin: 06/08/21 04:07 Dose: 650 mg Documented by: Albuterol (Albuterol Hfa 8 Gm Inhaler) 2 puffs INH Q4H PRN PRN Reason: Shortness Of Breath Or Wheezin Stop: 06/19/21 02:27 Last Admin: 05/21/21 05:17 Dose: 2 puffs Documented by: Bisacodyl (Bisacodyl 5 Mg Tabec) 5 mg PO DAILY PRN PRN Reason: Constipation Stop: 06/28/21 23:30 Enoxaparin Sodium (Enoxaparin Inj 40 Mg/0.4 Ml Syr) 40 mg SQ Q12H PRINCE Stop: 06/21/21 20:59 Last Admin: 06/07/21 19:52 Dose: 40 mg Documented by: Fluticasone Furoate (Fluticasone Furoate 100mcg 14 Puffs/Inhaler) 1 puffs INH DAILY PRINCE Stop: 06/19/21 08:59 Last Admin: 06/07/21 09:08 Dose: 1 puffs Documented by: Guaifenesin (Guaifenesin 600 Mg Tabcr) 600 mg PO Q12 PRINCE Stop: 06/20/21 08:59 Last Admin: 06/07/21 19:52 Dose: 600 mg Documented by: Lactobacillus Acidoph/Casei/Rhamnos (Advanced Probiotic 1250 Mg Capsule) 2 cap PO DAILY PRINCE Stop: 06/20/21 16:14 Last Admin: 06/07/21 09:05 Dose: 2 cap Documented by: Losartan Potassium (Losartan Potassium 50 Mg Tab) 50 mg PO DAILY PRINCE Stop: 06/19/21 08:59 Last Admin: 06/07/21 09:02 Dose: 50 mg Documented by: Melatonin (Melatonin 3 Mg Tab) 3 mg PO HS PRN PRN Reason: Sleep Stop: 06/22/21 00:13 Menthol (Cough Drop (Sugar Free) Avinash 24 Avinash/1 Box) 1 avinash BUCCAL Q2H PRN PRN Reason: Sore Throat Stop: 06/21/21 11:52 Nitroglycerin (Nitroglycerin Sl 0.4 Mg/Tab Tab) 0.4 mg SL UD PRN PRN Reason: Chest Pain Stop: 06/19/21 02:27 Ondansetron HCl (Ondansetron Inj 2 Mg/Ml 2 Ml Vial) 4 mg IV Q6H PRN PRN Reason: Nausea Stop: 06/19/21 02:27 Phenazopyridine HCl (Phenazopyridine Hcl 100 Mg Tab) 100 mg PO TID PRN PRN Reason: Bladder pain Stop: 06/26/21 00:55 Last Admin: 05/27/21 09:04 Dose: 100 mg Documented by: Phenol (Chloraseptic 1.4% Soln 180 Ml Btl) 2 sprays MT Q4 PRN PRN Reason: Sore Throat Stop: 06/21/21 07:24 Last Admin: 05/25/21 08:18 Dose: 2 sprays Documented by: Polyethylene Glycol (Polyethylene (Miralax) 17 Gm Pack) 17 gm PO DAILY PRN PRN Reason: Constipation Stop: 07/04/21 13:43 Last Admin: 06/06/21 10:28 Dose: 17 gm Documented by: Sodium Chloride (Sodium Chloride 0.65% Na Soln 45 Ml ([place])) 2 sprays NA TID PRN PRN Reason: Nasal Congestion Stop: 06/25/21 05:26 Last Admin: 05/27/21 01:45 Dose: 2 sprays Documented by:
[2021-06-08] MEDS: ENOXAPARIN INJ 40 MG/0.4 ML SYR SQ SCH ×2 (09:00→20:54)
[2021-06-08] MEDS: ADVANCED PROBIOTIC 1250 MG CAPSULE PO SCH (09:02)
[2021-06-08] MEDS: FLUTICASONE FUROATE 100MCG 14 PUFFS/INHALER INH SCH (09:02)
[2021-06-08] MEDS: guaiFENesin 600 MG TABCR PO SCH ×2 (09:02→20:54)
--- NOTE | 2021-06-08 15:47 | Electrocardiogram Report ---
Test Reason : Blood Pressure : / mmHG Vent. Rate : 082 BPM Atrial Rate : 082 BPM P-R Int : 148 ms QRS Dur : 086 ms QT Int : 420 ms P-R-T Axes : 048 009 -15 degrees QTc Int : 490 ms Normal sinus rhythm Prolonged QT Abnormal ECG When compared with ECG of 19-MAY-2021 22:32, T wave inversion now evident in Inferior leads T wave inversion less evident in Lateral leads QT has lengthened Confirmed by Jacobo Caplelan ([id number]) on 06/08/2021 3:46:53 PM Referred By: REFERRED SELF Confirmed By:Quinn Capellan
[2021-06-09] MEDS: FLUTICASONE FUROATE 100MCG 14 PUFFS/INHALER INH SCH (08:36)
[2021-06-09] MEDS: ENOXAPARIN INJ 40 MG/0.4 ML SYR SQ SCH ×2 (08:36→20:34)
[2021-06-09] MEDS: ADVANCED PROBIOTIC 1250 MG CAPSULE PO SCH (08:37)
[2021-06-09] MEDS: guaiFENesin 600 MG TABCR PO SCH ×2 (08:37→20:32)
[2021-06-09 08:56] LABS: Anion Gap 5 (3-11); BUN Creatinine Ratio 23.9 (10-20); Blood Urea Nitrogen 16 mg/dl (6-23); C Reactive Protein < 0.50 mg/dl (0-0.5); Carbon Dioxide 24 mmol/L (21-32); Chloride 106 mmol/L (98-107); Creatinine Clr Calc Pharmacy 116.2 ml/min; Est GFR (Non-African American) 100.1 ml/min; Glucose 87 mg/dl (70-99(Fasting)); Sodium 135 mmol/L (136-145)
--- NOTE | 2021-06-09 19:23 | Hospitalist Progress Note ---
Date of Service June 09, 2021 Assessment & Plan (1) Acute respiratory failure due to COVID-19: Plan: per plan below. (2) Pneumonia due to 2019 novel coronavirus: Plan: Present on admission with worsening shortness of breath Test is positive for COVID-19 and unvaccinated CTA chest showed No evidence of pulmonary embolism. Groundglass and consolidative opacities and mediastinal and hilar lymphadenopathy compatible with viral pneumonia. Completed the course of remdesivir on May 23 Completed dexamethasone 10 day course Case discussed with pulmonology about to extend dexamethasone ( no official consult place). We will continue monitor Pt while off steroid if oxygen does not improve and inflammatory markers increase, will consider to restart Decadron at 10mg daily CRP 5.43 on 06/01/2021 and ferritin at 963.2 Gave additional intravenous dexamethasone 10 mg daily-received intravenous Decadron with increasing dose for 6 days symptoms in the morning moreso than throughout the whole days Feels he is improving. started nightly CPAP which he is tolerating. He can come out of isolation as per infectious disease Cont Mucinex and pulmonary toilet with oxygen supplementation -wean as tolerated Two step in am. (3) Hypertension: Plan: BP stable but on the lower side, may have been from recent lasix. Cont to hold Losartan. (4) Hyponatremia: Plan: Likely related to diuretics. Resolved since holding additional Lasix. (5) DVT prophylaxis: Plan: Lovenox Full Dispo-to home once hypoxia has resolved. Nohelia Castro DO [facility] Hospitalist Admission and Anticipated Discharge Date Admission Date: May 20, 2021 Subjective 66 yo M admitted with acute hypoxic respiratory failure 2/2 covid. feels well today and reports no issues no further oxygen desaturations today and he was able to be weaned off hi flow support. Currently on 2LPM at rest. . Denies SOB, chest pain, tolerating PO, denies fevers or chills. Eager to return home. Review of Systems Review of Systems: All systems were reviewed and negative except per subjective above. Physical Exam Physical Exam: CONSTITUTIONAL: WNWD, vitals as above, generally well- appearing, NAD, sitting in chair at bedside. EYES: normal conjunctivae, no scleral icterus ENT: external ear and nose normal, NECK: trachea midline, RESPIRATORY: clear to auscultation bilaterally, no rales or wheezes, normal respiratory effort CARDIOVASCULAR: regular rate and rhythm, S1 and 2 heard without murmurs, gallops or rubs, no JVD, no peripheral edema CHEST: inspection of chest was normal GASTROINTESTINAL: soft, nontender, ND, no guarding MUSCULOSKELETAL: strength 5/5 throughout, head is normocephalic and atraumatic, SKIN: warm and dry, NEUROLOGIC: CN 2-12 grossly intact, no sensory deficit, normal cognition, normal speech, no tremor PSYCHIATRIC: alert cooperative and oriented to person, place and time. Results & Data Results & Data ([facility]) Vital Signs (Past 12 Hours) Vital Signs Temp Pulse Resp BP Pulse Ox 06/09/21 15:15 36.6 C 60 18 102/60 95 06/09/21 11:19 37.1 C 80 18 98/56 L 93 06/09/21 10:03 94 Laboratory Results BMP 06/09/21 06/09/21 08:00 09:28 Sodium 135 L Potassium TNP 4.4 Chloride 106 Carbon Dioxide 24 BUN 16 Creatinine 0.67 Glucose 87 Calcium 8.0 L Medications Administered Current Inpatient Medications Acetaminophen (Acetaminophen 325 Mg Tab) 650 mg PO Q4H PRN PRN Reason: Pain or Fever Stop: 06/19/21 02:27 Last Admin: 06/08/21 04:07 Dose: 650 mg Documented by: Albuterol (Albuterol Hfa 8 Gm Inhaler) 2 puffs INH Q4H PRN PRN Reason: Shortness Of Breath Or Wheezin Stop: 06/19/21 02:27 Last Admin: 05/21/21 05:17 Dose: 2 puffs Documented by: Bisacodyl (Bisacodyl 5 Mg Tabec) 5 mg PO DAILY PRN PRN Reason: Constipation Stop: 06/28/21 23:30 Enoxaparin Sodium (Enoxaparin Inj 40 Mg/0.4 Ml Syr) 40 mg SQ Q12H PRINCE Stop: 06/21/21 20:59 Last Admin: 06/09/21 08:36 Dose: 40 mg Documented by: Fluticasone Furoate (Fluticasone Furoate 100mcg 14 Puffs/Inhaler) 1 puffs INH DAILY PRINCE Stop: 06/19/21 08:59 Last Admin: 06/09/21 08:36 Dose: 1 puffs Documented by: Guaifenesin (Guaifenesin 600 Mg Tabcr) 600 mg PO Q12 PRINCE Stop: 06/20/21 08:59 Last Admin: 06/09/21 08:37 Dose: 600 mg Documented by: Lactobacillus Acidoph/Casei/Rhamnos (Advanced Probiotic 1250 Mg Capsule) 2 cap PO DAILY PRINCE Stop: 06/20/21 16:14 Last Admin: 06/09/21 08:37 Dose: 2 cap Documented by: Losartan Potassium (Losartan Potassium 50 Mg Tab) 50 mg PO DAILY PRINCE Stop: 06/19/21 08:59 Last Admin: 06/07/21 09:02 Dose: 50 mg Documented by: Melatonin (Melatonin 3 Mg Tab) 3 mg PO HS PRN PRN Reason: Sleep Stop: 06/22/21 00:13 Menthol (Cough Drop (Sugar Free) Avinash 24 Avinash/1 Box) 1 avinash BUCCAL Q2H PRN PRN Reason: Sore Throat Stop: 06/21/21 11:52 Nitroglycerin (Nitroglycerin Sl 0.4 Mg/Tab Tab) 0.4 mg SL UD PRN PRN Reason: Chest Pain Stop: 06/19/21 02:27 Ondansetron HCl (Ondansetron Inj 2 Mg/Ml 2 Ml Vial) 4 mg IV Q6H PRN PRN Reason: Nausea Stop: 06/19/21 02:27 Phenazopyridine HCl (Phenazopyridine Hcl 100 Mg Tab) 100 mg PO TID PRN PRN Reason: Bladder pain Stop: 06/26/21 00:55 Last Admin: 05/27/21 09:04 Dose: 100 mg Documented by: Phenol (Chloraseptic 1.4% Soln 180 Ml Btl) 2 sprays MT Q4 PRN PRN Reason: Sore Throat Stop: 06/21/21 07:24 Last Admin: 05/25/21 08:18 Dose: 2 sprays Documented by: Polyethylene Glycol (Polyethylene (Miralax) 17 Gm Pack) 17 gm PO DAILY PRN PRN Reason: Constipation Stop: 07/04/21 13:43 Last Admin: 06/06/21 10:28 Dose: 17 gm Documented by: Sodium Chloride (Sodium Chloride 0.65% Na Soln 45 Ml ([place])) 2 sprays NA TID PRN PRN Reason: Nasal Congestion Stop: 06/25/21 05:26 Last Admin: 05/27/21 01:45 Dose: 2 sprays Documented by:
[2021-06-10] MEDS: FLUTICASONE FUROATE 100MCG 14 PUFFS/INHALER INH SCH (08:03)
[2021-06-10] MEDS: ADVANCED PROBIOTIC 1250 MG CAPSULE PO SCH (08:04)
[2021-06-10] MEDS: guaiFENesin 600 MG TABCR PO SCH ×2 (08:05→21:00)
[2021-06-10] MEDS: ENOXAPARIN INJ 40 MG/0.4 ML SYR SQ SCH ×2 (08:05→21:00)
--- NOTE | 2021-06-10 18:07 | Hospitalist Progress Note ---
Date of Service June 10, 2021 Assessment & Plan (1) Acute respiratory failure due to COVID-19: Plan: per plan below. (2) Pneumonia due to 2019 novel coronavirus: Plan: Present on admission with worsening shortness of breath Test is positive for COVID-19 and unvaccinated CTA chest showed No evidence of pulmonary embolism. Groundglass and consolidative opacities and mediastinal and hilar lymphadenopathy compatible with viral pneumonia. Completed the course of remdesivir on May 23 Completed dexamethasone 10 day course Case discussed with pulmonology about to extend dexamethasone ( no official consult place). We will continue monitor Pt while off steroid if oxygen does not improve and inflammatory markers increase, will consider to restart Decadron at 10mg daily CRP 5.43 on 06/01/2021 and ferritin at 963.2 Gave additional intravenous dexamethasone 10 mg daily-received intravenous Decadron with increasing dose for 6 days symptoms in the morning moreso than throughout the whole days Feels he is improving. started nightly CPAP which he is tolerating. He can come out of isolation as per infectious disease Cont Mucinex and pulmonary toilet with oxygen supplementation -wean as tolerated Required >6LPM with desaturations with ambulation this am. Repeat test in am. (3) Sinus pause: Plan: Three second pause on head of strategy. Not on beta fidencio. In light of covid infection and his eagerness to return home in am, will ask for cardiology input early in case there is a need for outpatient follow-up or further investigation with an event monitor on discharge. (4) Hypertension: Plan: BP stable but on the lower side, may have been from recent lasix. Cont to hold Losartan. (5) Hyponatremia: Plan: Likely related to diuretics. Resolved since holding additional Lasix. (6) DVT prophylaxis: Plan: Lovenox Full Dispo-to home once hypoxia has resolved. Nohelia Castro DO [facility] Hospitalist Admission and Anticipated Discharge Date Admission Date: May 20, 2021 Subjective 66 yo M admitted with acute hypoxic respiratory failure 2/2 covid. feels well today and reports no issues Eager to return home Currently on 2LPM at rest. Required >6LPM on 2 step test this am with ambulation. Patient feels that was "because I don't do well in the morning." Three second pause noted on telemetry Denies SOB, chest pain, tolerating PO, denies fevers or chills. Looking forward to repeating 2 step in am and going home. Review of Systems Review of Systems: All systems were reviewed and negative except per subjective above. Physical Exam Physical Exam: CONSTITUTIONAL: WNWD, vitals as above, generally well- appearing, NAD, sitting in chair at bedside. EYES: normal conjunctivae, no scleral icterus ENT: external ear and nose normal, NECK: trachea midline, RESPIRATORY: clear to auscultation bilaterally, no rales or wheezes, normal respiratory effort CARDIOVASCULAR: regular rate and rhythm, S1 and 2 heard without murmurs, gallops or rubs, no JVD, no peripheral edema CHEST: inspection of chest was normal GASTROINTESTINAL: soft, nontender, ND, no guarding MUSCULOSKELETAL: strength 5/5 throughout, head is normocephalic and atraumatic, SKIN: warm and dry, NEUROLOGIC: CN 2-12 grossly intact, no sensory deficit, normal cognition, normal speech, no tremor PSYCHIATRIC: alert cooperative and oriented to person, place and time. Results & Data Results & Data ([facility]) Vital Signs (Past 12 Hours) Vital Signs Temp Pulse Pulse Pulse Pulse Pulse Pulse 06/10/21 15:15 74 06/10/21 15:11 36.4 C L 06/10/21 12:58 06/10/21 12:25 06/10/21 11:13 36.5 C 06/10/21 08:15 78 98 H 91 H 92 H 87 06/10/21 07:15 37.0 C Pulse Pulse Pulse Resp Resp Resp Resp 06/10/21 15:15 06/10/21 15:11 71 18 06/10/21 12:58 06/10/21 12:25 06/10/21 11:13 80 19 06/10/21 08:15 94 H 74 16 16 20 06/10/21 07:15 64 18 Resp Resp Resp Resp BP Pulse Ox Pulse Ox 06/10/21 15:15 06/10/21 15:11 102/65 93 06/10/21 12:58 06/10/21 12:25 95 06/10/21 11:13 117/74 95 06/10/21 08:15 20 22 20 16 86 L 06/10/21 07:15 123/68 95 Pulse Ox Pulse Ox Pulse Ox Pulse Ox Pulse Ox Pulse Ox Pulse Ox 06/10/21 15:15 06/10/21 15:11 06/10/21 12:58 94 06/10/21 12:25 06/10/21 11:13 06/10/21 08:15 90 86 L 87 L 88 L 86 L 83 L 06/10/21 07:15 Pulse Ox Pulse Ox 06/10/21 15:15 06/10/21 15:11 06/10/21 12:58 94 92 06/10/21 12:25 06/10/21 11:13 06/10/21 08:15 06/10/21 07:15 Medications Administered Current Inpatient Medications Acetaminophen (Acetaminophen 325 Mg Tab) 650 mg PO Q4H PRN PRN Reason: Pain or Fever Stop: 06/19/21 02:27 Last Admin: 06/08/21 04:07 Dose: 650 mg Documented by: Albuterol (Albuterol Hfa 8 Gm Inhaler) 2 puffs INH Q4H PRN PRN Reason: Shortness Of Breath Or Wheezin Stop: 06/19/21 02:27 Last Admin: 05/21/21 05:17 Dose: 2 puffs Documented by: Bisacodyl (Bisacodyl 5 Mg Tabec) 5 mg PO DAILY PRN PRN Reason: Constipation Stop: 06/28/21 23:30 Enoxaparin Sodium (Enoxaparin Inj 40 Mg/0.4 Ml Syr) 40 mg SQ Q12H [facility] Stop: 06/21/21 20:59 Last Admin: 06/10/21 08:05 Dose: 40 mg Documented by: Fluticasone Furoate (Fluticasone Furoate 100mcg 14 Puffs/Inhaler) 1 puffs INH DAILY [facility] Stop: 06/19/21 08:59 Last Admin: 06/10/21 08:03 Dose: 1 puffs Documented by: Guaifenesin (Guaifenesin 600 Mg Tabcr) 600 mg PO Q12 [facility] Stop: 06/20/21 08:59 Last Admin: 06/10/21 08:05 Dose: 600 mg Documented by: Losartan Potassium (Losartan Potassium 50 Mg Tab) 50 mg PO DAILY [facility] Stop: 06/19/21 08:59 Last Admin: 06/07/21 09:02 Dose: 50 mg Documented by: Melatonin (Melatonin 3 Mg Tab) 3 mg PO HS PRN PRN Reason: Sleep Stop: 06/22/21 00:13 Menthol (Cough Drop (Sugar Free) Steven 24 Steven/1 Box) 1 steven [place]AL Q2H PRN PRN Reason: Sore Throat Stop: 06/21/21 11:52 Nitroglycerin (Nitroglycerin Sl 0.4 Mg/Tab Tab) 0.4 mg SL UD PRN PRN Reason: Chest Pain Stop: 06/19/21 02:27 Ondansetron HCl (Ondansetron Inj 2 Mg/Ml 2 Ml Vial) 4 mg IV Q6H PRN PRN Reason: Nausea Stop: 06/19/21 02:27 Phenazopyridine HCl (Phenazopyridine Hcl 100 Mg Tab) 100 mg PO TID PRN PRN Reason: Bladder pain Stop: 06/26/21 00:55 Last Admin: 05/27/21 09:04 Dose: 100 mg Documented by: Phenol (Chloraseptic 1.4% Soln 180 Ml Btl) 2 sprays MT Q4 PRN PRN Reason: Sore Throat Stop: 06/21/21 07:24 Last Admin: 05/25/21 08:18 Dose: 2 sprays Documented by: Polyethylene Glycol (Polyethylene (Miralax) 17 Gm Pack) 17 gm PO DAILY PRN PRN Reason: Constipation Stop: 07/04/21 13:43 Last Admin: 06/06/21 10:28 Dose: 17 gm Documented by: Sodium Chloride (Sodium Chloride 0.65% Na Soln 45 Ml ([place])) 2 sprays NA TID PRN PRN Reason: Nasal Congestion Stop: 06/25/21 05:26 Last Admin: 05/27/21 01:45 Dose: 2 sprays Documented by:
[2021-06-11] MEDS: FLUTICASONE FUROATE 100MCG 14 PUFFS/INHALER INH SCH (08:19)
[2021-06-11] MEDS: ENOXAPARIN INJ 40 MG/0.4 ML SYR SQ SCH (08:20)
[2021-06-11] MEDS: guaiFENesin 600 MG TABCR PO SCH (08:20)
[2021-06-11] MEDS: ADVANCED PROBIOTIC 1250 MG CAPSULE PO SCH (08:20)
--- NOTE | 2021-06-11 13:14 | Cardiology Consultation ---
Date of Consultation June 11, 2021 Assessment & Plan (1) Second degree AV block: (2) Abnormal EKG: (3) Hypertension: (4) Pneumonia due to 2019 novel coronavirus: (1) Second degree AV block: -Per review of the rhythm strip obtained 06/10/2021 at 1728, on the beat just prior to the bradycardia, there is prolongation of the RI interval, and is difficult to determine if this was a brief episode of Mobitz type I or Mobitz type II second-degree AV block, I would not characterize this is a sinus pause, as there is atrial activity, with 3 dropped QRS complexes, with a total pause duration of just around 3 seconds. Patient denies any subjective symptoms associated with the event. There were two other separate events that took place yesterday 1220 and 12:51 PM each with a single dropped QRS complex. The patient has been hospitalized on telemetry for 3 weeks, with no reported heart rhythm concerns other than yesterday. And remains asymptomatic. In the absence of symptoms, I think it is prudent to monitor this, with plans to perhaps allow him to recover from his pneumonia and obtain a outpatient heart monitor. (2) Abnormal EKG: The patient does not have any historical EKG tracings at [facility] prior to this admission, or within the [facility] system. He denies any symptoms suggestive of unstable angina. The repolarization changes could be related to the left ventricular hypertrophy, and the voltage would also correlate with that. His blood pressure has been well controlled he actually has not received his losartan dose for 3 days due to blood pressure hold parameters, but does note a longstanding history of hypertension and is on losartan. Recommend proceeding with a resting echocardiogram for further assessment, to be obtained today. Further recommendations will be forthcoming. (3) Hypertension: Would likely need to be discharged on his antihypertensive treatment. 1 consideration may be to reduce the losartan dose from 50 mg to 25 mg. (4) Pneumonia due to 2019 novel coronavirus: Minimal residual hypoxia, oxygen level 93% on 2 L earlier today. Patient states he has improved significantly from a subjective standpoint with regards to his symptoms noted at the time of presentation. History of Present Illness Attending Physician: Nohelia Castro, History of Present Illness Mr Cuadra is a 66-year-old man assessed in cardiology consultation per the request of Dr. Castro for the evaluation of transient bradycardia. The patient was interviewed by phone and his records and telemetry were reviewed. He has a history of hypertension and has been maintained on losartan 50 mg as an outpatient for years. He denies any other cardiac history. He was admitted 3 weeks ago on 05/20/2021 for complaints of shortness of breath and body aches. He was found to be hypoxic and was subsequently diagnosed with SARS-CoV-2 related pneumonia. He has received treatment including supplemental oxygen and the patient describes to me that he has been getting better, he is eagerly awaiting discharge. Yesterday on 06/10/2021 at 1728 the patient had a brief episode of Mobitz type II second-degree AV block with 3 dropped QRS complexes, and offset back to normal sinus rhythm. The patient had 2 other similar events yesterday at 12:20 PM and at 12:51 PM, each of these with only 1 drop QRS complex. The patient tells me he believes that he was perhaps eating at those times, but he denies having any subjective symptoms such as lightheadedness, dizziness, syncope or near syncope yesterday, otherwise during his hospital stay, or previously. Family History: Father of congestive heart failure at the age of 89. No known history of coronary artery stents or surgery. No family history of pacemaker implantation. Allergies Allergy/AdvReac Type Severity Reaction Status Date / Time No Known Allergies Allergy Unverified 05/19/21 22:56 Home Medications Medication Instructions Recorded Confirmed Type azithromycin 250 mg tablet 250 mg PO UD 05/19/21 05/19/21 History losartan 50 mg tablet 50 mg PO DAILY 05/19/21 05/19/21 History prednisone 10 mg tablet 10 mg PO UD 05/19/21 05/19/21 History Patient History Medical History Hypertension Social History Smoking Status: Never smoker Second Hand Exposure: No; Do You Dip or Chew Tobacco: No; Tobacco Cessation Education Requested by Patient: No Hx Alcohol Use: Yes Hx Substance Use: No Preferred Language: Nepalese Communication Ability: Effective 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 Results & Data ([facility]) Vital Signs (Past 12 Hours) Vital Signs Temp Pulse Pulse Pulse Pulse Pulse Resp 06/11/21 12:32 55 L 06/11/21 09:00 72 84 71 06/11/21 08:28 79 06/11/21 08:27 19 06/11/21 08:18 19 06/11/21 07:09 37.0 C 61 18 06/11/21 02:06 66 Resp Resp Resp BP Pulse Ox Pulse Ox Pulse Ox 06/11/21 12:32 06/11/21 09:00 20 22 18 93 90 06/11/21 08:28 06/11/21 08:27 88 L 06/11/21 08:18 85 L 06/11/21 07:09 124/69 95 06/11/21 02:06 Pulse Ox 06/11/21 12:32 06/11/21 09:00 87 L 06/11/21 08:28 06/11/21 08:27 06/11/21 08:18 06/11/21 07:09 06/11/21 02:06 Laboratory Results Intake and Output 06/10/21 06/11/21 06/11/21 22:59 06:59 14:59 Output Total 801 / 1601 250 / 1601 150 / 150 Balance -801 / -1151 -250 / -1151 -150 / -150 Output: Urine 800 / 1600 250 / 1600 150 / 150 # Bowel Movements Other: Weight 86.7 kg 86.8 kg Weight Measurement Method Built in [facility] Diagnostic Findings Most recent chemistry panel took place 06/09/2021 with findings of sodium 135, potassium 4.4, creatinine 0.67 C-reactive protein less than 0.50 mg/dL EKG performed 05/19/2021: Reviewed independently Normal sinus rhythm at [address]-T wave abnormality, somewhat diffuse, suggestive of underlying ischemia, or perhaps LVH with strain pattern Repeat EKG performed 06/08/2021, relatively unchanged, T wave changes less prominent.
--- NOTE | 2021-06-11 13:17 | Discharge Summary ---
Date of Service June 11, 2021 Admission HPI Per Admitting Provider HISTORY OF PRESENT ILLNESS: A 66-year-old male with past medical history significant for hypertension, started developing cough since last Sunday and since sunday , he was feeling short of breath, has body aches, poor appetite, not eating much, not feeling well, so he came to the ER and was saturating only 87% on room air and COVID came back positive. He is not vaccinated. With oxygenation, he is doing okay. Denies any headache, no earache. Has some runny nose. His throat is sore. No nausea, no vomiting. Has some diarrhea. No abdominal pain. Normal bladder movements. No swelling in the legs. Currently, resting comfortably and hemodynamically stable. Somewhat hard of hearing. Admission Exam Per Admitting Provider PHYSICAL EXAMINATION: GENERAL: The patient is of moderate build, not in acute distress. VITAL SIGNS: Temperature 37.7, pulse 81, respiratory rate 28, blood pressure 143/82, oxygen 95% on 4 liters. HEENT: Pupils equal, round and reactive to light. Oral mucosa moist. NECK: No JVD or neck masses. CARDIOVASCULAR: S1 and S2 heard. Regular rate and rhythm. No murmur, no gallop. RESPIRATORY SYSTEM: Normal AP diameter. No accessory muscle use. No wheezing, no crackles. ABDOMEN: Soft, bowel sounds present, nontender, no distention. CENTRAL NERVOUS SYSTEM: Cranial nerves II-XII grossly intact, nonfocal. EXTREMITIES: No edema, no erythema. Principal Diagnosis Acute respiratory failure 2/2 covid pneumonia Sinus pause for 3 seconds Discharge Exam CONSTITUTIONAL: WNWD, vitals as above, generally well-appearing, NAD, sitting in chair at bedside. EYES: normal conjunctivae, no scleral icterus ENT: external ear and nose normal, NECK: trachea midline, RESPIRATORY: clear to auscultation bilaterally, no rales or wheezes, normal respiratory effort CARDIOVASCULAR: regular rate and rhythm, S1 and 2 heard without murmurs, gallops or rubs, no JVD, no peripheral edema CHEST: inspection of chest was normal GASTROINTESTINAL: soft, nontender, ND, no guarding MUSCULOSKELETAL: strength 5/5 throughout, head is normocephalic and atraumatic, SKIN: warm and dry, NEUROLOGIC: CN 2-12 grossly intact, no sensory deficit, normal cognition, normal speech, no tremor PSYCHIATRIC: alert cooperative and oriented to person, place and time. Discharge Data Allergies Allergy/AdvReac Type Severity Reaction Status Date / Time No Known Allergies Allergy Unverified 05/19/21 22:56 Consultations 05/19/21 23:35 ED Decision to Admit Stat 06/10/21 17:46 Consult Cardiology Routine Ordered Studies Laboratory Results WBC 6.57 K/uL (4.8-10.8) 06/07/21 06:09 RBC 4.27 M/uL (4.7-6.1) L 06/07/21 06:09 Hgb 12.8 g/dL (14.0-18.0) L 06/07/21 06:09 Hct 38.1 % (42-52) L 06/07/21 06:09 MCV 89.2 fL (80-100) 06/07/21 06:09 MCH 30.0 pg (25-34) 06/07/21 06:09 MCHC 33.6 g/dL (32-36) 06/07/21 06:09 RDW Std Deviation 45.5 fL (36.4-46.3) 06/07/21 06:09 RDW Coeff of Danielle 13.9 % (11.5-14.5) 06/07/21 06:09 Plt Count 240 K/uL (130-400) 06/07/21 06:09 MPV 9.4 fL (7.4-10.4) 06/07/21 06:09 Immature Gran % (Auto) 0.5 % 06/07/21 06:09 Neut % (Auto) 69.4 % 06/07/21 06:09 Lymph % (Auto) 20.7 % 06/07/21 06:09 [place] % (Auto) 9.1 % 06/07/21 06:09 Eos % (Auto) 0.3 % 06/07/21 06:09 Baso % (Auto) 0.0 % 06/07/21 06:09 Neut # (Auto) 4.56 K/uL (1.4-6.5) 06/07/21 06:09 Lymph # (Auto) 1.36 K/uL (1.2-3.4) 06/07/21 06:09 [place] # (Auto) 0.60 K/uL (0.11-0.59) H 06/07/21 06:09 Eos # (Auto) 0.02 K/uL (0-0.5) 06/07/21 06:09 Baso # (Auto) 0.00 K/uL (0-0.2) 06/07/21 06:09 Immature Gran # (Auto) 0.03 K/uL (0.00-0.02) H 06/07/21 06:09 ESR 78 mm/hr (0-20) H 06/01/21 07:07 Sodium 135 mmol/L (136-145) L 06/09/21 08:00 Potassium 4.4 mmol/L (3.5-5.1) 06/09/21 09:28 Chloride 106 mmol/L (98-107) 06/09/21 08:00 Carbon Dioxide 24 mmol/L (21-32) 06/09/21 08:00 Anion Gap 5 (3-11) 06/09/21 08:00 BUN 16 mg/dl (6-23) 06/09/21 08:00 Creatinine 0.67 mg/dl (0.6-1.4) 06/09/21 08:00 Est Cr Clr Drug Dosing 116.2 ml/min 06/09/21 08:00 Est GFR ( Amer) 116.0 ml/min 06/09/21 08:00 Est GFR (Non-Af Amer) 100.1 ml/min 06/09/21 08:00 BUN/Creatinine Ratio 23.9 (10-20) H 06/09/21 08:00 Glucose 87 mg/dl (70-99(Fasting)) 06/09/21 08:00 Calcium 8.0 mg/dl (8.5-10.1) L 06/09/21 08:00 Phosphorus 3.6 mg/dl (2.5-4.9) 05/25/21 07:11 Magnesium 2.3 mg/dl (1.7-2.4) 05/25/21 07:11 Ferritin 963.2 ng/ml (8-388) H 06/01/21 07:07 Total Bilirubin 0.7 mg/dl (0.2-1.0) 05/25/21 07:11 Direct Bilirubin < 0.1 mg/dl (0-0.2) 05/20/21 07:25 AST 14 U/L (13-39) 05/25/21 07:11 ALT 20 U/L (7-52) 05/25/21 07:11 Alkaline Phosphatase 60 U/L (34-104) 05/25/21 07:11 Troponin I < 0.015 ng/ml (0-0.045) 05/19/21 22:30 C-Reactive Protein < 0.50 mg/dl (0-0.5) 06/09/21 08:00 Total Protein 6.3 gm/dl (6.0-8.3) 05/25/21 07:11 Albumin 3.3 gm/dl (3.4-5.0) L 05/25/21 07:11 Globulin 3.0 gm/dl (2.5-4.0) 05/25/21 07:11 Albumin/Globulin Ratio 1.1 (0.9-2) 05/25/21 07:11 Procalcitonin 0.14 ng/ml (0-0.5) 05/27/21 06:58 Urine Color Honey[place]w 05/27/21 06:47 Urine Appearance Clear (Clear) 05/27/21 06:47 Urine pH 6.0 (4.5-7.5) 05/27/21 06:47 Ur Specific [place] 1.024 (1.000-1.030) 05/27/21 06:47 Urine Protein Trace (Negative) H 05/27/21 06:47 Urine Glucose (UA) Negative (Negative) 05/27/21 06:47 Urine Ketones Negative (Negative) 05/27/21 06:47 Urine Blood 1+ (Negative) H 05/27/21 06:47 Urine Nitrite Positive (Negative) A 05/27/21 06:47 Urine Bilirubin 1+ (Negative) H 05/27/21 06:47 Urine Urobilinogen Negative (Negative) 05/27/21 06:47 Ur Leukocyte Esterase 1+ (Negative) H 05/27/21 06:47 Urine WBC (Auto) 10-30 /hpf (0-5) H 05/27/21 06:47 Urine RBC (Auto) 0-4 /hpf (0-4) 05/27/21 06:47 U Hyaline Cast (Auto) 1-5 /lpf (0-5) 05/27/21 06:47 U Epithel Cells (Auto) 5-10 /lpf (0-5) H 05/27/21 06:47 Urine Bacteria (Auto) Negative (Negative) 05/27/21 06:47 Impressions Chest CTA 05/24/21 18:36 CT angio chest PE protocol CLINICAL HISTORY: PE Covid pneumonia, dyspnea TECHNIQUE: Multidetector row helical CT of the chest was performed. Coronal and sagittal reformations were obtained. Coronal and sagittal MIPS were obtained from the axial data set and were submitted for review. Automated dose lowering techniques and/or adjustment according to patient size were utilized for this exam. Comparison: None available at the time of this dictation. FINDINGS: Lungs and pleura: Diffuse groundglass and consolidative opacities are seen. Heart and pericardium: Heart size is normal. No pericardial effusion. Vessels: No evidence of pulmonary embolism. Moderate atherosclerotic calcifications are seen. Mediastinum and brigette: Subcentimeter lymph nodes are seen. Chest wall and lower neck: Unremarkable. Abdomen: Unremarkable. Bones: Degenerative changes in the thoracic spine. IMPRESSION: 1. No evidence of pulmonary embolism. 2. Groundglass and consolidative opacities and mediastinal and hilar lymphadenopathy compatible with viral pneumonia. ACT 112: Negative or not required by law. Electronically signed by: Anup Garcia M.D. 05/24/2021 8:35 PM Chest X-Ray 06/01/21 08:47 XR chest 1V portable HISTORY: Shortness of breath. Covid pneumonia COMPARISON: Chest CTA 05/24/2021. FINDINGS: No pneumothorax. No pleural effusions. The heart is top normal in size. Multifocal patchy bilateral airspace opacities have slightly progressed within the right lung base. This likely represents a viral pneumonia. No evidence for pulmonary edema. IMPRESSION: Interval progression of the multifocal patchy bilateral airspace opacities likely representing a viral pneumonia. ACT 112: Negative or not required by law. Electronically signed by: Truman Ware M.D. 06/01/2021 9:37 AM Hospital Course (1) Acute respiratory failure due to COVID-19: per plan below. (2) Pneumonia due to 2019 novel coronavirus: Present on admission with worsening shortness of breath Test is positive for COVID-19 and unvaccinated CTA chest showed No evidence of pulmonary embolism. Groundglass and consolidative opacities and mediastinal and hilar lymphadenopathy compatible w ith viral pneumonia. Completed the course of emdesivir on May 23 Completed dexamethasone 10 day course Case discussed with pulmonology about to extend dexamethasone ( no official consult place). We will continue monitor Pt while off steroid if oxygen does not improve and inflammatory markers increase, will consider to restart Decadron at 10mg daily CRP 5.43 on 06/01/2021 and ferritin at 963.2 Gave additional intravenous dexamethasone 10 mg daily-received intravenous Decadron with increasing dose for 6 days symptoms in the morning moreso than throughout the whole days Feels he is improving. started nightly CPAP which he is tolerating. He can come out of isolation as per infectious disease Cont Mucinex and pulmonary toilet with oxygen supplementation -wean as tolerated Required >6LPM with desaturations with ambulation this am. Repeat test in am. (3) Hypertension: (4) Hyponatremia: (5) Second degree AV block: 66 yo unvaccinated patient presented with shortness of breath, testing positive for sars Cov-2.He underwent a CT angiogram of the chest revealing no evidence of pulmonary embolism.Multifocal viral pneumonia was seen.He completed a 5-day course of remdesivir on May 23.He also completed a 10-day course of dexamethasone during his stay.He continued to require hi flow oxygen supplementation beyond his steroid course and required additional dexamethasone at 10mg daily for a few days, but ultimately improved.He required CPAP overnight while he was admitted.He was off isolation at time of discharge and was stable and doing well.He did still have an. Oxygen requirement which was expected to continue for the next days to weeks.Additionally, during a stressful time when he found out he had to stay another day in the hospital, he was noted to have transient heart block on telemetry.A 2D echo revealed mild LVH with an EF 70% and normal left ventricular wall motion.The right ventricle was normal in size and function.Cardiology was consulted and recommended this was not consistent with sinus pause, as initially thought, but more so second- degree block, unable to determine if Type I or II.As he was asymptomatic and has been on telemetry for weeks now without other arrythmias, it would be reasonable to allow him recover from his pneumonia and then pursue an event monitor for further investigation.Close primary care follow-up was recommended. Total Time Total Time Spent Total Time Spent (In Minutes): 60 Discharge Plan Discharge Items Patient Disposition: Home - Home Health Services Reason For Visit: SOB Discharge Diagnosis: Acute respiratory failure 2/2 covid pneumonia Sinus pause for 3 seconds Condition on Discharge: Good Activity: Resume your previous activity Non-emergency contact: Primary Care Provider Call non-emergency contact if: you have any medication questions and your symptoms worsen Follow-up/Referrals: Alex Mendoza DO [Primary Care Provider] - Diet: Heart Healthy Addtl Attending Provider Instructions: Please take all medications as instructed on discharge list below. It is recommended to follow up with your primary care provider within one week of discharge. You are encouraged to purchase and wear a pulse oximeter which will check your oxygen saturation. Your goal oxygen level should be 88% or greater at all times. Please use the oxygen as prescribed, however, if you find that your oxygen saturation is dropping lower than this, you may need more oxygen and should speak with your doctor about this immediately. Home Health nursing is being ordered at discharge to check on your oxygen levels and vital signs after returning home. While in the hospital, you had a 3 second pause on telemetry and an echo was performed just before you left. Please follow-up with your primary care provider for results of this study. You are encouraged to follow-up with your primary care provider within 1 week of discharge from the hospital to ensure you are still doing well after returning home. Repeat chest imaging is recommended in 4-6 weeks to ensure complete resolution of pneumonia and may be ordered at that time. You are cleared from isolation at this time, however, it is still recommended to wear a mask in public and respect all social distancing policies per [place] Dept of Health recommendations. It was a pleasure taking care of you! Please call if you have any questions or problems. You can reach a [facility] hospitalist on duty at [facility] 24 hours a day by calling [phone]. Take care of yourself. Nohelia Castro DO [facility] Hospitalist Pending Studies at Discharge: Yes Studies:: echo report pending at time of discharge. Stand-Alone Forms: My [facility] Medications and DC Order Prescriptions: Continued losartan 50 mg tablet 50 mg PO DAILY RF: 0 prednisone 10 mg tablet 10 mg PO UD RF: 0 azithromycin 250 mg tablet 250 mg PO UD RF: 0 Discharge Orders: Discharge Order (Routine); Ordered 06/11/21 Ordered By: Nohelia Castro Admission Data Admit Date/Time: 05/20/21 01:16 Attending Provider: Nohelia Castro Admit Provider: Jaswinder Krueger Primary Care Provider: Alex Mendoza Other Providers: Nohelia Castro ; Roland Carrero ; Jaswinder Krueger ; [place] ; [facility],Home Healthcare Other Interventions: Discharge Summary Assessment (RN) Last Done: 06/11/21 19:01
== END 2021-06-11 16:00 | disposition home health service (06) | DRG 177 ==
LOC: ED 21:58 → EDINP 05-20 01:16 → SUATTDRO 05-20 01:16 → 2S 05-20 03:43